=== PATIENT | female | born 1950 | race Caucasian/White ===

== ENCOUNTER 2019-09-21 14:26 | Emergency (ER) | payer MEDICARE, OTHER, SELFPAY ==
[2019-09-21] VITALS (7 sets, daily range): BP systolic 119–153; BP diastolic 55–89; PULSE 83–98; RESP 15–20; TEMP 36.8; O2SAT 91–99; BMI 30.7
--- NOTE | 2019-09-21 14:30 | ED_ITS ---
Entered by Mag Portillo, acting as scribe for HPI - SOB/Dyspnea General: Chief Complaint: Shortness of Breath/Dyspnea Stated Complaint: SHORTNESS OF BREATH NECK AND BACK PAIN FEVER Time Seen by Provider: 09/21/19 14:30 Source: EMS Mode of arrival: EMS History of Present Illness: HPI Narrative: 69 yo female presents with shortness of breath. pt states this started 12 days ago but has just worsened pt has had neck and back pain. pt states she has had a cough. pt states she was recently seen and admitted for the same symptoms. coughing makes this worse and nothing makes it better. pt denies any other symptoms at this time. elicited complaint: shortness of breath and cough Onset (ago): day(s) (12 days) Context: recent illness Timing: constant Severity: moderate Exacerbating factors: exertion, movement, coughing and deep breaths Relieving factors: nothing Review of Systems General: Reports: 10 or more systems reviewed and unremarkable except in HPI and below PFSH ED PFSH: Statuses (acute, chronic, etc) shown below reflect problem list status as previously entered and may not be historically accurate Social History Smoking and tobacco status: current every day smoker Course Vital Signs: Vital signs: Vital Signs Temperature 98.2 F 09/21/19 14:28 Pulse Rate 86 09/21/19 15:39 Respiratory Rate 20 H 09/21/19 15:14 Blood Pressure 125/75 09/21/19 14:28 Pulse Oximetry 94 09/21/19 15:39 MDM - SOB/Dyspnea Lab Data: Labs: Lab Results 09/21/19 09/21/19 09/21/19 Range/Units 14:55 15:13 15:13 WBC 6.7 (4.0-10.0) 10^3/ uL RBC 4.32 (4.1-5.3) 10^6/u L Hgb 11.5 (11.5-15.3) g/dL Hct 38.6 (37.0-47.0) % MCV 89.4 (81-99) fL MCH 26.6 L (28.0-34.0) pg MCHC 29.8 L (30.0-36.0) g/dL RDW 15.1 (12.1-15.1) % Plt Count 146 (130-400) 10^3/c mm MPV 11.7 H (7.4-10.4) fL Neut % (Auto) 72.8 % Lymph % (Auto) 15.8 % [place] % (Auto) 10.2 % Eos % (Auto) 0.2 % Baso % (Auto) 0.5 % Neut # (Auto) 4.9 (1.8-7.7) 10^3/u L Lymph # (Auto) 1.1 (0.8-4.8) 10^3/u L [place] # (Auto) 0.7 (0.2-0.9) 10^3/u L Eos # (Auto) 0.0 (0.0-0.8) 10^3/u L Baso # (Auto) 0.0 (0.0-0.1) 10^3/u L Nucleated RBC % (a uto) 0 % Nucleated RBCs # 0.0 /100WBC Specimen Type Arterial Sample Site Brachial, left ABG pH 7.34 L (7.35-7.45) ABG pCO2 61.8 H* (35-45) mmHg ABG pO2 57.5 L (80.0-100.0) mmH g ABG HCO3 33.6 H (22-26) mmol/L ABG Base Excess 6.1 H (-2.0-2.0) mmol/ L Patel Test N/a Hematocrit 38.4 (37-47) % Hgb O2 Saturation 86.0 L (95-100) % Carboxyhemoglobin 1.3 (0.4-20.1) %THgb Methemoglobin 0.7 (0.4-1.5) % Total Hemoglobin 12.5 (12-16) g/dL O2 Liters/Min 4.0 % FiO2 36.0 % Twine Reeling Machine Operator ID gd Sodium 137 (136-145) mmol/L Potassium 3.7 (3.5-5.1) mmol/L Chloride 94 L (98-107) mmol/L Carbon Dioxide 34 H (22-29) mmol/L Anion Gap 12.7 (5-19) BUN 17 (8-23) mg/dL Creatinine 0.8 (0.5-0.9) mg/dL GFR Calculation 71.5 L (90-130) mL/min Glucose 147 H (74-106) mg/dL Calcium 9.8 (8.8-10.2) mg/Dl Total Bilirubin 0.6 (0.15-1.2) mg/dL AST 7 (0-32) U/L ALT < 5 (0-33) U/L Alkaline Phosphata se 121 H (35-105) IU/L NT-Pro-B Natriuret Pep 3450 H (0-125) pg/mL Total Protein 6.8 (6.6-8.7) g/dL Albumin 3.6 (3.5-5.2) g/dL Globulin 3.2 (1.3-4.6) g/dL Influenza Type A A g (Negative) POC Influenza B Ag (Negative) 09/21/19 Range/Units 15:54 WBC (4.0-10.0) 10^3/ uL RBC (4.1-5.3) 10^6/u L Hgb (11.5-15.3) g/dL Hct (37.0-47.0) % MCV (81-99) fL MCH (28.0-34.0) pg MCHC (30.0-36.0) g/dL RDW (12.1-15.1) % Plt Count (130-400) 10^3/c mm MPV (7.4-10.4) fL Neut % (Auto) % Lymph % (Auto) % [place] % (Auto) % Eos % (Auto) % Baso % (Auto) % Neut # (Auto) (1.8-7.7) 10^3/u L Lymph # (Auto) (0.8-4.8) 10^3/u L [place] # (Auto) (0.2-0.9) 10^3/u L Eos # (Auto) (0.0-0.8) 10^3/u L Baso # (Auto) (0.0-0.1) 10^3/u L Nucleated RBC % (a uto) % Nucleated RBCs # /100WBC Specimen Type Sample Site ABG pH (7.35-7.45) ABG pCO2 (35-45) mmHg ABG pO2 (80.0-100.0) mmH g ABG HCO3 (22-26) mmol/L ABG Base Excess (-2.0-2.0) mmol/ L Patel Test Hematocrit (37-47) % Hgb O2 Saturation (95-100) % Carboxyhemoglobin (0.4-20.1) %THgb Methemoglobin (0.4-1.5) % Total Hemoglobin (12-16) g/dL O2 Liters/Min % FiO2 % Twine Reeling Machine Operator ID Sodium (136-145) mmol/L Potassium (3.5-5.1) mmol/L Chloride (98-107) mmol/L Carbon Dioxide (22-29) mmol/L Anion Gap (5-19) BUN (8-23) mg/dL Creatinine (0.5-0.9) mg/dL GFR Calculation (90-130) mL/min Glucose (74-106) mg/dL Calcium (8.8-10.2) mg/Dl Total Bilirubin (0.15-1.2) mg/dL AST (0-32) U/L ALT (0-33) U/L Alkaline Phosphata se (35-105) IU/L NT-Pro-B Natriuret Pep (0-125) pg/mL Total Protein (6.6-8.7) g/dL Albumin (3.5-5.2) g/dL Globulin (1.3-4.6) g/dL Influenza Type A A g Negative (Negative) POC Influenza B Ag Negative (Negative) Discharge Plan Discharge Patient Disposition: Home, Self-Care Clinical Impression: Acute exacerbation of chronic obstructive airways disease, Acute dyspnea, Hypoxia, Hypercarbia Community acquired pneumonia Qualifiers: Laterality: left Lung location: lower lobe of lung Qualified Code(s): J18.9 - Pneumonia, unspecified organism Condition: Stable Discharge Orders: Transfer Out of Facility (Order); Ordered 09/21/19 Ordered By: Aquilino Bustamante Referrals: Vivien Butler, CLOTH WORKER-C [Primary Care Provider] - Coding Level of Care Code ED Tactical Intelligence Officer for g Fwd The documentation recorded by the Bandar gómez Bridget Annette, accurately reflects the service I personally performed and the decisions made by Dianna prieto Donald P, DO Sep 21, 2019 14:26
--- NOTE | 2019-09-21 14:38 | XR_ITS ---
WS: [id number] PORTABLE CHEST HISTORY: dyspnea / hypoxia COMPARISON: 04/19/2019 Moderate pulmonary hyperexpansion. Increasing consolidation in the LEFT lower lung abuts the LEFT hea rt. No pleural effusion or pneumothorax. Cardiac size: Moderately enlarged cardiac silhouette. Mediastinum/Aorta: Mild atherosclerosis aorta. No osseous abnormality seen. XR/XR chest 1V portable [id number] IMPRESSION: 1. Developing LEFT lower lobe or lingular pneumonia. 2. Moderate cardiomegaly.
[2019-09-21 15:08] LABS: ABG PCO2 61.8 mmHg (35-45); ABG PH Result 7.34 (7.35-7.45); Arterial Blood Gas Hematocrit 38.4 % (37-47); Base Excess ABG 6.1 mmol/L (-2.0-2.0); Blood Gas Sample Site Brachial, left; Blood Gas Sample Type Arterial; Carboxyhemoglobin 1.3 %THgb (0.4-20.1); HCO3 ABG 33.6 mmol/L (22-26); Methemoglobin 0.7 % (0.4-1.5); PO2 ABG 57.5 mmHg (80.0-100.0); Total Hemoglobin 12.5 g/dL (12-16)
[2019-09-21] MEDS: ipratropium-albuterol 3 mL Neb INHALATION (15:11)
[2019-09-21] MEDS: sodium chloride 0.9% 500 ML 999 ML IV (15:17)
[2019-09-21 15:29] LABS: Basophils % 0.5 %; Eosinophils % 0.2 %; Hematocrit 38.6 % (37.0-47.0); Hemoglobin 11.5 g/dL (11.5-15.3); Lymphocytes # 1.1 10^3/uL (0.8-4.8); Lymphocytes % 15.8 %; Mean Corpuscular HGB Conc 29.8 g/dL (30.0-36.0); Mean Corpuscular Hemoglobin 26.6 pg (28.0-34.0); Mean Corpuscular Volume 89.4 fL (81-99); Mean Platelet Volume 11.7 fL (7.4-10.4); Monocytes # 0.7 10^3/uL (0.2-0.9); Monocytes % 10.2 %; Neutrophils # 4.9 10^3/uL (1.8-7.7); Neutrophils % 72.8 %; Nucleated Red Blood Cells % 0 %; Platelet Count 146 10^3/cmm (130-400); Red Blood Count 4.32 10^6/uL (4.1-5.3); Red Cell Distribution Width 15.1 % (12.1-15.1); White Blood Count 6.7 10^3/uL (4.0-10.0)
[2019-09-21] MEDS: LORazepam 2 mg/mL INJ 1 mL 0.5 MG IVP (15:37)
[2019-09-21] MEDS: cefTRIAXone 1,000 MG in sodium chloride 0.9% (plus) 50 ML 100 MG IV (15:38)
--- NOTE | 2019-09-21 15:40 | PC.RESP ---
BIPAP# 7. APNEA ALARM ON.
[2019-09-21 15:46] LABS: Alanine Aminotransferase < 5 U/L (0-33); Albumin Level 3.6 g/dL (3.5-5.2); Alkaline Phosphatase 121 IU/L (35-105); Anion Gap 12.7 (5-19); Aspartate Amino Transferase 7 U/L (0-32); Blood Urea Nitrogen 17 mg/dL (8-23); Calcium 9.8 mg/Dl (8.8-10.2); Carbon Dioxide 34 mmol/L (22-29); Chloride 94 mmol/L (98-107); Globulin 3.2 g/dL (1.3-4.6); Glomerular Filtration Rate 71.5 mL/min (90-130); Glucose 147 mg/dL (74-106); NT Pro B Type Natriuretic Pept 3450 pg/mL (0-125); Potassium 3.7 mmol/L (3.5-5.1); Sodium 137 mmol/L (136-145); Total Bilirubin 0.6 mg/dL (0.15-1.2); Total Protein 6.8 g/dL (6.6-8.7)
--- NOTE | 2019-09-21 15:49 | PC.NURSE ---
Neck: Chronic pain that is now worse. Patient reports she hurts all over.
--- NOTE | 2019-09-21 15:56 | PC.NURSE ---
Patient started by BI-PAP. See RT documentation
[2019-09-21 16:35] LABS: Influenza A by IFA Negative (Negative); Influenza B by IFA Negative (Negative)
[2019-09-22 09:42] LABS: Oxygen Device NC
== END 2019-09-21 20:10 | disposition home or self-care (01) ==
PROVIDERS: Emergency Provider Family Medicine; Family Provider Nurse Practitioner Family; PCP Nurse Practitioner Family
DX: J44.0 Chronic obstructive pulmonary disease with (acute) lower respiratory infection (principal); J44.1 Chronic obstructive pulmonary disease with (acute) exacerbation; J18.8 Other pneumonia, unspecified organism; R09.02 Hypoxemia; R06.89 Other abnormalities of breathing; F17.210 Nicotine dependence, cigarettes, uncomplicated; I70.0 Atherosclerosis of aorta
CPT/HCPCS: 36415; 36600; 71045; 80053; 82805; 83880; 85025; 87040; 87804; 96360; 96365; 96374; 96375; 99281; J0696; J2060; J7040

== ENCOUNTER → 2019-11-26 12:41 | Outpatient (BNVA) | payer MEDICARE, OTHER, SELFPAY | PROVIDERS: Family Provider Nurse Practitioner Family; PCP Nurse Practitioner Family; Visit Provider Anesthesiology | DX: M50.020 Cervical disc disorder with myelopathy, mid-cervical region, unspecified level (principal); M47.812 Spondylosis without myelopathy or radiculopathy, cervical region; M54.5 Low back pain; M96.1 Postlaminectomy syndrome, not elsewhere classified; M25.551 Pain in right hip; M25.552 Pain in left hip; F17.210 Nicotine dependence, cigarettes, uncomplicated; Z79.891 Long term (current) use of opiate analgesic; Z71.6 Tobacco abuse counseling | CPT/HCPCS: 99214 ==

== ENCOUNTER 2020-03-05 12:47 | Emergency (ER) | payer MEDICARE, OTHER, SELFPAY ==
[2020-03-05 12:59] VITALS: BP 158/69; PULSE 77; RESP 20; TEMP 36.3; O2SAT 91; BMI 28.9
[2020-03-05 13:15] VITALS: O2SAT 95
--- NOTE | 2020-03-05 13:24 | ECG_ITS ---
[facility] ED Test Date: 2020-03-05 Pat Name: Li Power Department: Room: Gender: Female Instructor Nurse: : 1950 Requested By: Ike Pruett I Order Number: [id number] Melissa MD: Cat Lowery M.D. Measurements Intervals Zenia Rate: 63 P: 37 WI: 140 QRS: -46 QRSD: 141 T: 85 QT: 433 QTc: 445 Interpretive Statements SINUS RHYTHM MARKED LEFT AXIS DEVIATION [QRS AXIS < -30] LEFT BUNDLE BRANCH BLOCK [120+ ms QRS DURATION, 80+ ms Q/S IN V1/V2, 85+ ms R IN I/aVL/V5/V6] Compared to ECG 04/20/2019 05:02:46 Left-axis deviation now present Sinus bradycardia no longer present Electronically Signed On 03-05-2020 13:34:53 CDT by Cat Lowery M.D. [id number]
--- NOTE | 2020-03-05 13:24 | XRR_ITS ---
PROCEDURE INFORMATION: Exam: XR Chest, 2 Views Exam date and time: 03/05/2020 1:24 PM Age: 69 years old Clinical indication: Dyspnea; Additional info: SOB TECHNIQUE: Imaging protocol: XR of the chest Views: 2 views. COMPARISON: No relevant prior studies available. FINDINGS: Lungs: Unremarkable. No consolidation. Pleural space: Unremarkable. No pleural effusion. No pneumothorax. Heart/Mediastinum: Unremarkable. No cardiomegaly. Bones/joints: Unremarkable. XR/XR chest 2V* [id number] IMPRESSION: No acute findings.
--- NOTE | 2020-03-05 13:38 | W.ED.SOB ---
HPI - SOB/Dyspnea General: Chief Complaint: Shortness of Breath/Dyspnea Stated Complaint: SOB, nausea Time Seen by Provider: 03/05/20 12:56 Source: patient Mode of arrival: ambulatory Limitations: no limitations History of Present Illness: HPI Narrative: 69-year-old female patient who presents to the emergency department with complaints of shortness of breath, nausea and chest pain. Symptoms started yesterday and have gradually worsened. She has a prior history of an [place] several years ago. She also has a history of COPD and still smokes half a pack of cigarettes a day. She uses oxygen at 2 L/min at night only. She used her Xopenex both with minimal improvement today. She has mild cough. MD elicited complaint: shortness of breath and chest pain Pertinent past history: COPD Onset (ago): day(s) (1) Timing: constant and progressively worsening Severity: moderate Exacerbating factors: nothing Relieving factors: nothing Associated symptoms: Reports abdominal pain, chest pain, cough and nausea; Deny fever(s), polydipsia or polyuria Treatment prior to arrival: oxygen and bronchodilator Review of Systems General: Reports: 10 or more systems reviewed and unremarkable except in HPI and below Const: Denies: fever(s) Eyes: Denies: change in vision or blurry vision ENMT: Denies: throat pain, enlarged tonsils, odynophagia, hoarseness, mouth pain or swelling of lips/tongue Card: Reports: chest pain Resp: Denies: dyspnea, productive cough or non-productive cough GI: Reports: abdominal pain and nausea : Denies: flank pain, difficulty voiding, dysuria, urinary frequency, urinary urgency or urinary hesitancy Musc: Denies: neck pain, back pain or extremity swelling Skin/Breast: Denies: rash, pruritus or erythema Neuro: Denies: headache(s), numbness in extremities or weakness in extremities Endo: Denies: polyuria, polydipsia or tired all the time PFSH ED PFSH: Medical History Arthralgia of cervical spine Back Pain Cervical disc disorder with myelopathy, mid-cervical region, unspecified level Cervical spondylosis without myelopathy COPD (chronic obstructive pulmonary disease) Encounter for long-term opiate analgesic use Lumbar postlaminectomy syndrome Myocardial infarct Smoker Social History (Reviewed 03/05/20 @ 13:42 by Ike Pruett MD, [facility]) Smoking and tobacco status: current every day smoker cigarettes Packs smoked per day: 0.5 Alcohol intake: never Physical Exam Const: COMMON NORMALS: no acute distress, average body habitus, patient oriented x3, no limitations, healthy appearing, alert and well nourished HENMT: COMMON NORMALS: normocephalic, atraumatic and moist oral mucous membranes HEAD & SCALP: normocephalic and atraumatic Neck/C-Spine: COMMON NORMALS: no meningeal signs and no JVD Resp: COMMON NORMALS: normal respiratory effort, No retractions, No use of accessory muscles and percussion normal AUSCULTATION: wheezes expiratory wheezes and throughout PERCUSSION: percussion normal Cardio: COMMON NORMALS: no JVD, regular rate, regular rhythm, S1 normal heart sound present, S2 normal heart sound present, No gallops present (Cardio), No clicks present (Cardio), No murmurs present (Cardio), No rub (Cardio) and Peripheral pulses 2+ throughout RATE: regular rate RHYTHM: regular rhythm HEART SOUNDS: S1 normal heart sound present and S2 normal heart sound present PERIPHERAL PULSES: Peripheral pulses 2+ throughout GI: COMMON NORMALS: Normal to inspection, nondistended, normoactive bowel sounds present, Soft to palpation, non-tender, No hepatosplenomegaly present, no masses and no bruits PALPATION: Yes Soft to palpation and Yes No hepatosplenomegaly present : COMMON NORMALS: Yes no CVA tenderness BLADDER/KIDNEY EXAM: Yes no CVA tenderness Back/Pelvis: COMMON NORMALS: no CVA tenderness Extremity: COMMON NORMALS: normal to inspection, full ROM, capillary refill normal, no calf tenderness and no pedal edema Neuro: COMMON NORMALS: patient oriented x3 SENSORIUM/ORIENTATION: Yes alert MENINGEAL SIGNS: Yes no meningeal signs Skin: COMMON NORMALS: no rashes or lesions noted, no wounds, turgor normal, no jaundice, no petechiae and no mottling GENERAL SKIN EXAM: no rashes or lesions noted and turgor normal Course Reevaluation(s): Reevaluation #1: Discussed her labs and imaging findings with her. Negative for acute findings. Baseline troponin elevated, but 2 hour delta is flat. She feels better following the breathing treatment but she refuses steroids as she says it gives her tremors. Will treat her as a case of COPD exacerbation. She has improved air movement following the breathing treatment. Will discharge her home on oral azithromycin and she is to f/u with her PCP. She is to use xopenex every 4 hours for the next 48 hours, then PRN thereafter. Time: 16:54 Vital Signs: Vital signs: Vital Signs Temperature 97.4 F L 03/05/20 12:59 Pulse Rate 82 03/05/20 17:15 Respiratory Rate 20 H 03/05/20 14:50 Blood Pressure 185/87 03/05/20 17:15 Pulse Oximetry 93 03/05/20 17:15 MDM - SOB/Dyspnea MDM Narrative: Medical decision making narrative: Patient with clinical features of COPD exacerbation. She improved following the breathing treatment, however she says she is very allergic to steroids so we avoided steroids in her. She is discharged home on azithromycin and she is to continue her beta agonist breathing treatments. Lab Data: Labs: Lab Results 03/05/20 03/05/20 03/05/20 Range/Units 13:48 13:48 13:48 WBC 6.0 (4.0-10.0) 10^3/ uL RBC 4.53 (4.1-5.3) 10^6/u L Hgb 12.5 (11.5-15.3) g/dL Hct 42.6 (37.0-47.0) % MCV 94.0 (81-99) fL MCH 27.6 L (28.0-34.0) pg MCHC 29.3 L (30.0-36.0) g/dL RDW 15.5 H (12.1-15.1) % Plt Count 123 L (130-400) 10^3/c mm MPV 11.7 H (7.4-10.4) fL Neut % (Auto) 72.6 % Lymph % (Auto) 21.0 % [place] % (Auto) 4.7 % Eos % (Auto) 0.7 % Baso % (Auto) 0.8 % Neut # (Auto) 4.3 (1.8-7.7) 10^3/u L Lymph # (Auto) 1.3 (0.8-4.8) 10^3/u L [place] # (Auto) 0.3 (0.2-0.9) 10^3/u L Eos # (Auto) 0.0 (0.0-0.8) 10^3/u L Baso # (Auto) 0.1 (0.0-0.1) 10^3/u L Nucleated RBC % (a uto) 0 % Nucleated RBCs # 0.0 /100WBC D-Dimer 0.73 H (0-0.59) ug/mIFE U Sodium 142 (136-145) mmol/L Potassium 4.3 (3.5-5.1) mmol/L Chloride 101 (98-107) mmol/L Carbon Dioxide 27 (22-29) mmol/L Anion Gap 18.3 (5-19) BUN 13 (8-23) mg/dL Creatinine 0.8 (0.5-0.9) mg/dL GFR Calculation 71.5 L (90-130) mL/min Glucose 101 (65-115) mg/dL Calculated Osmolal ity 290 (285-295) mOsm/k g Lactic Acid (0.5-2.2) mmol/L Calcium 9.6 (8.5-10.5) mg/dL Total Bilirubin 0.3 (0.15-1.2) mg/dL AST 12 (0-32) U/L ALT 8 (0-33) U/L Alkaline Phosphata se 104 (35-105) IU/L Troponin T Baselin e (0-10) ng/L Troponin T 120 Min henrietta (0-10) ng/L Delta Troponin T (0-10) ABS# NT-Pro-B Natriuret Pep 3865 H (0-125) pg/mL Total Protein 6.0 L (6.6-8.7) g/dL Albumin 4.3 (3.5-5.2) g/dL Globulin 1.7 (1.3-4.6) g/dL Lipase 15 (13-60) U/L 03/05/20 03/05/20 03/05/20 Range/Units 13:48 13:48 15:58 WBC (4.0-10.0) 10^3/ uL RBC (4.1-5.3) 10^6/u L Hgb (11.5-15.3) g/dL Hct (37.0-47.0) % MCV (81-99) fL MCH (28.0-34.0) pg MCHC (30.0-36.0) g/dL RDW (12.1-15.1) % Plt Count (130-400) 10^3/c mm MPV (7.4-10.4) fL Neut % (Auto) % Lymph % (Auto) % [place] % (Auto) % Eos % (Auto) % Baso % (Auto) % Neut # (Auto) (1.8-7.7) 10^3/u L Lymph # (Auto) (0.8-4.8) 10^3/u L [place] # (Auto) (0.2-0.9) 10^3/u L Eos # (Auto) (0.0-0.8) 10^3/u L Baso # (Auto) (0.0-0.1) 10^3/u L Nucleated RBC % (a uto) % Nucleated RBCs # /100WBC D-Dimer (0-0.59) ug/mIFE U Sodium (136-145) mmol/L Potassium (3.5-5.1) mmol/L Chloride (98-107) mmol/L Carbon Dioxide (22-29) mmol/L Anion Gap (5-19) BUN (8-23) mg/dL Creatinine (0.5-0.9) mg/dL GFR Calculation (90-130) mL/min Glucose (65-115) mg/dL Calculated Osmolal ity (285-295) mOsm/k g Lactic Acid 0.6 (0.5-2.2) mmol/L Calcium (8.5-10.5) mg/dL Total Bilirubin (0.15-1.2) mg/dL AST (0-32) U/L ALT (0-33) U/L Alkaline Phosphata se (35-105) IU/L Troponin T Baselin e 34 H (0-10) ng/L Troponin T 120 Min henrietta 31.66 H (0-10) ng/L Delta Troponin T -2.34 L (0-10) ABS# NT-Pro-B Natriuret Pep (0-125) pg/mL Total Protein (6.6-8.7) g/dL Albumin (3.5-5.2) g/dL Globulin (1.3-4.6) g/dL Lipase (13-60) U/L Imaging Data^: CXR: Radiologist's impression: [place] [address] XRay Report Signed Patient: Robinson Power #: [id number] : 2Acct#:[id number] Age/Sex: 69 / FADM Date: 03/05/20 Loc: ERRoom/Bed: Attending Dr: Ordering Provider/Ordering MD: Ike Pruett MD, [facility] Date of Service: 03/05/20 Procedure(s): XR chest 2V* [id number] Accession Number(s): [id number] Report Number: [id number] PROCEDURE INFORMATION: Exam: XR Chest, 2 Views Exam date and time: 03/05/2020 1:24 PM Age: 69 years old Clinical indication: Dyspnea; Additional info: SOB TECHNIQUE: Imaging protocol: XR of the chest Views: 2 views. COMPARISON: No relevant prior studies available. FINDINGS: Lungs: Unremarkable. No consolidation. Pleural space: Unremarkable. No pleural effusion. No pneumothorax. Heart/Mediastinum: Unremarkable. No cardiomegaly. Bones/joints: Unremarkable. XR/XR chest 2V* [id number] IMPRESSION: No acute findings. Dictated By:Crow Rodriguez Signed By:Анна Rodriguez Date/Time:03/05/20 1351 DD/ 1349 CTA Chest: Radiologist's impression: [address] [address] [address] Scan Report Signed Patient: Robinson Power #: [id number] : 1950cct#:[id number] Age/Sex: 69 / FADM Date: 03/05/20 Loc: ERRoo/Bed: Attending Dr: Ordering Provider/Ordering MD: Ike Pruett MD, [facility] Date of Service: 03/05/20 Procedure(s): CT angio chest PE protcl [id number] Accession Number(s): [id number] Report Number: [id number] PROCEDURE INFORMATION: Exam: CT Angiography Chest With Contrast Exam date and time: 03/05/2020 2:55 PM Age: 69 years old Clinical indication: Dyspnea and other: High d dimer; Prior surgery; Surgery date: 6+ months; Surgery type: Right nephrectomy; Additional info: SOB TECHNIQUE: Imaging protocol: Computed tomographic angiography of the chest with intravenous contrast. 3D rendering: MIP and/or 3D reconstructed images were created by the technologist. Radiation optimization: All CT scans at this facility use at least one of these dose optimization techniques: automated exposure control; mA and/or kV adjustment per patient size (includes targeted exams where dose is matched to clinical indication); or iterative reconstruction. Contrast material: VISI; Contrast volume: 95 ml; Contrast route: INTRAVENOUS (IV); COMPARISON: CR (CHEST, ) 03/05/2020 1:39 PM RADIATION DOSE METRICS: Total DLP (mGy-cm): 651.3 FINDINGS: Pulmonary arteries: there is no pulmonary embolus. Aorta: Unremarkable. No aortic aneurysm. No aortic dissection. Lungs: There are moderate emphysematous changes. There is subpleural atelectasis of the dependent portions of the lungs. There is no lobar consolidation. Pleural space: Unremarkable. No pneumothorax. No pleural effusion. Heart: The heart is enlarged. Mediastinal space: A small hiatal hernia is present. Lymph nodes: Unremarkable. No enlarged lymph nodes. Kidneys and ureters: There is an appropriate appearance of the visualized solitary left kidney. Bones/joints: Old right rib fracture deformities are noted. No acute fracture. There are moderate degenerative changes in the spine. Soft tissues: Unremarkable. CT/CT angio chest PE protcl [id number] IMPRESSION: 1. There is no pulmonary embolus. 2. Emphysematous changes. The lungs are clear. Radiation Dose CTDIVOL = (mGy): DLP = 651.3 (mGy-cm) Dictated By:Linda Cuenca Signed By:Judy Cuenca Date/Time:03/05/20 1642 DD/ 1640 EKG Data^: EKG 1: Attestation: I personally reviewed and interpreted this EKG as follows: EKG Interpretation Date: 03/05/20 EKG interpretation time: 13:32 Prior EKG tracings: not available for review Interpretation: Normal sinus rhythm. Heart rate 63 beats per minutes. Left axis deviation. Left bundle branch block. Discharge Plan Discharge Patient Disposition: Home, Self-Care Clinical Impression: COPD exacerbation Condition: Stable Prescriptions: New azithromycin 250 mg tablet See Rx Instructions .ROUTE .COMPLEX Qty: 6 RF: 0 Continued methocarbamol 500 mg tablet 500 mg PO TID PRN (Reason: spasms) 90 Days Qty: 270 RF: 0 oxycodone 15 mg tablet 15 mg PO QID PRN (Reason: pain) 30 Days Qty: 120 RF: 0 pregabalin 150 mg capsule 150 mg PO TID 90 Days Qty: 270 RF: 0 Creon 36,000-114,000- 180,000 unit capsule,delayed release(DR/EC) See Rx Instructions PO DAILY RF: 0 atorvastatin 40 mg tablet 40 mg PO DAILY RF: 0 duloxetine [Cymbalta] 30 mg capsule,delayed release(DR/EC) 30 mg PO DAILY RF: 0 Daliresp 500 mcg tablet 500 mcg PO DAILY RF: 0 fluticasone propionate 50 mcg/actuation spray,suspension 1 spray INTRANASAL DAILY RF: 0 isosorbide mononitrate 30 mg tablet extended release 24 hr 30 mg PO DAILY RF: 0 levothyroxine 137 mcg capsule 137 mcg PO DAILY RF: 0 nitroglycerin 0.4 mg tablet, sublingual 0.4 mg SUBLINGUAL Q5M PRN (Reason: CHEST PAINS) RF: 0 pantoprazole 40 mg tablet,delayed release (DR/EC) 40 mg PO DAILY RF: 0 Symbicort 160-4.5 mcg/actuation HFA aerosol inhaler 2 puff INHALATION BID RF: 0 metoprolol succinate 25 mg tablet extended release 24 hr 25 mg PO DAILY RF: 0 ergocalciferol (vitamin D2) 1,250 mcg (50,000 unit) capsule 1,250 mcg PO DAILY RF: 0 levalbuterol HCl 1.25 mg/3 mL solution for nebulization 1.25 mg INHALATION DAILY RF: 0 Spiriva with HandiHaler 18 mcg Capsule, W/Inhalation Device 1 cap INHALATION DAILY RF: 0 carbidopa-levodopa 25-100 mg Tablet,Disintegrating 1 tab PO DAILY RF: 0 ondansetron HCl [Zofran] 8 mg Tablet 8 mg PO Q8H PRN (Reason: Nausea) RF: 0 aspirin 81 mg Tablet,Chewable 81 mg PO DAILY RF: 0 Discharge Orders: Discharge Order (Routine); Ordered 03/05/20 Ordered By: Ike Pruett Referrals: Vivien Butler FNP-C [Primary Care Provider] - 1-3 days Patient Instructions: Chronic Obstructive Pulmonary Disease (ED) Activity Restrictions/Additional Instructions: Return for any new or worsening symptoms. Follow-up with your primary care provider within 3 days. Take the antibiotic as prescribed. Use your Xopenex every 4 hours for the next 2 days while awake then as needed thereafter. Discharge Date/Time: 03/05/20 17:15 Coding Level of Care Code ED Cheese Cook for Chg Fwd Exam Comprehensive
[2020-03-05] MEDS: levalbuterol 1.25 mg/3 mL Neb INHALATION (13:44)
[2020-03-05 13:45] VITALS: PULSE 61; RESP 20; O2SAT 95
[2020-03-05 13:57] LABS: Basophils # 0.1 10^3/uL (0.0-0.1); Basophils % 0.8 %; Eosinophils % 0.7 %; Hematocrit 42.6 % (37.0-47.0); Hemoglobin 12.5 g/dL (11.5-15.3); Lymphocytes # 1.3 10^3/uL (0.8-4.8); Mean Corpuscular HGB Conc 29.3 g/dL (30.0-36.0); Mean Corpuscular Hemoglobin 27.6 pg (28.0-34.0); Mean Platelet Volume 11.7 fL (7.4-10.4); Monocytes # 0.3 10^3/uL (0.2-0.9); Monocytes % 4.7 %; Neutrophils # 4.3 10^3/uL (1.8-7.7); Neutrophils % 72.6 %; Nucleated Red Blood Cells % 0 %; Platelet Count 123 10^3/cmm (130-400); Red Blood Count 4.53 10^6/uL (4.1-5.3); Red Cell Distribution Width 15.5 % (12.1-15.1)
[2020-03-05 14:26] LABS: D Dimer 0.73 ug/mIFEU (0-0.59); Lactic Sepsis W/Reflex 0.6 mmol/L (0.5-2.2)
[2020-03-05 14:29] LABS: Troponin(5th) Baseline 34 ng/L (0-10)
[2020-03-05 14:35] LABS: Alanine Aminotransferase 8 U/L (0-33); Albumin Level 4.3 g/dL (3.5-5.2); Alkaline Phosphatase 104 IU/L (35-105); Anion Gap 18.3 (5-19); Aspartate Amino Transferase 12 U/L (0-32); Blood Urea Nitrogen 13 mg/dL (8-23); Calcium 9.6 mg/dL (8.5-10.5); Carbon Dioxide 27 mmol/L (22-29); Chloride 101 mmol/L (98-107); Globulin 1.7 g/dL (1.3-4.6); Glomerular Filtration Rate 71.5 mL/min (90-130); Glucose 101 mg/dL (65-115); Lipase 15 U/L (13-60); NT Pro B Type Natriuretic Pept 3865 pg/mL (0-125); Osmolality Calculated 290 mOsm/kg (285-295); Potassium 4.3 mmol/L (3.5-5.1); Sodium 142 mmol/L (136-145); Total Bilirubin 0.3 mg/dL (0.15-1.2)
[2020-03-05] MEDS: ondansetron 2 mg/ML SDV 2 mL 4 MG IM (14:46)
[2020-03-05 14:50] VITALS: PULSE 82; RESP 20; O2SAT 92
--- NOTE | 2020-03-05 14:50 | CTR_ITS ---
PROCEDURE INFORMATION: Exam: CT Angiography Chest With Contrast Exam date and time: 03/05/2020 2:55 PM Age: 69 years old Clinical indication: Dyspnea and other: High d dimer; Prior surgery; Surgery date: 6+ months; Surgery type: Right nephrectomy; Additional info: SOB TECHNIQUE: Imaging protocol: Computed tomographic angiography of the chest with intravenous contrast. 3D rendering: MIP and/or 3D reconstructed images were created by the technologist. Radiation optimization: All CT scans at this facility use at least one of these dose optimization techniques: automated exposure control; mA and/or kV adjustment per patient size (includes targeted exams where dose is matched to clinical indication); or iterative reconstruction. Contrast material: VISI; Contrast volume: 95 ml; Contrast route: INTRAVENOUS (IV); COMPARISON: CR (CHEST, ) 03/05/2020 1:39 PM RADIATION DOSE METRICS: Total DLP (mGy-cm): 651.3 FINDINGS: Pulmonary arteries: there is no pulmonary embolus. Aorta: Unremarkable. No aortic aneurysm. No aortic dissection. Lungs: There are moderate emphysematous changes. There is subpleural atelectasis of the dependent portions of the lungs. There is no lobar consolidation. Pleural space: Unremarkable. No pneumothorax. No pleural effusion. Heart: The heart is enlarged. Mediastinal space: A small hiatal hernia is present. Lymph nodes: Unremarkable. No enlarged lymph nodes. Kidneys and ureters: There is an appropriate appearance of the visualized solitary left kidney. Bones/joints: Old right rib fracture deformities are noted. No acute fracture. There are moderate degenerative changes in the spine. Soft tissues: Unremarkable. CT/CT angio chest PE protcl [id number] IMPRESSION: 1. There is no pulmonary embolus. 2. Emphysematous changes. The lungs are clear. Radiation Dose CTDIVOL = (mGy): DLP = 651.3 (mGy-cm)
[2020-03-05 16:21] LABS: Troponin 5 2HR 31.66 ng/L (0-10)
[2020-03-05 16:22] LABS: Troponin 5 2HR Delta -2.34 ABS# (0-10)
[2020-03-05] MEDS: iodixanol 320 mg/mL 100mL Btl IV (16:35)
[2020-03-05 16:43] VITALS: BP 186/90; PULSE 83; O2SAT 93
[2020-03-05] MEDS: levoFLOXacin 500 mg Tablet PO (17:08)
[2020-03-05 17:15] VITALS: BP 185/87; PULSE 82; O2SAT 93
== END 2020-03-05 17:15 | disposition home or self-care (01) ==
PROVIDERS: Emergency Provider Family Medicine; PCP Nurse Practitioner Family
DX: J44.1 Chronic obstructive pulmonary disease with (acute) exacerbation (principal); Z79.82 Long term (current) use of aspirin; I25.2 Old myocardial infarction; F17.210 Nicotine dependence, cigarettes, uncomplicated
CPT/HCPCS: 12345; 36415; 71046; 71275; 80053; 83605; 83690; 83880; 84484; 85025; 85378; 93005; 94640; 96372; 99283; 99284; J2405; J7614; Q9967

== ENCOUNTER → 2020-03-15 14:37 | Outpatient (BNVA) | payer MEDICARE, OTHER, SELFPAY | PROVIDERS: PCP Nurse Practitioner Family; Visit Provider Nurse Practitioner | DX: M54.41 Lumbago with sciatica, right side (principal); M54.42 Lumbago with sciatica, left side; M54.9 Dorsalgia, unspecified; M50.020 Cervical disc disorder with myelopathy, mid-cervical region, unspecified level; M47.812 Spondylosis without myelopathy or radiculopathy, cervical region; M96.1 Postlaminectomy syndrome, not elsewhere classified; F17.210 Nicotine dependence, cigarettes, uncomplicated; Z79.891 Long term (current) use of opiate analgesic; Z71.6 Tobacco abuse counseling | CPT/HCPCS: 99214 ==

== ENCOUNTER 2020-04-06 22:39 | Inpatient (IN) | payer MEDICARE, OTHER, SELFPAY ==
[2020-04-06 22:39] VITALS: BP 161/70; PULSE 86; RESP 18; O2SAT 94
--- NOTE | 2020-04-06 22:44 | ECG_ITS ---
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 Measurements Intervals Pratt Rate: 90 P: 71 AR: 156 QRS: -70 QRSD: 146 T: 94 QT: 413 QTc: 507 Interpretive Statements SINUS RHYTHM WITH OCCASIONAL VENTRICULAR PREMATURE COMPLEXES WITH OCCASIONAL SUPRAVENTRICULAR PREMATURE COMPLEXES POSSIBLE LEFT ATRIAL ENLARGEMENT [-0.1mV P WAVE IN V1/V2] LEFT AXIS DEVIATION [QRS AXIS < -30] LEFT BUNDLE BRANCH BLOCK [120+ ms QRS DURATION, 80+ ms Q/S IN V1/V2, 85+ ms R IN I/aVL/V5/V6] Compared to ECG 03/05/2020 13:32:30 Ventricular premature complex(es) now present Electronically Signed On 04-07-2020 20:12:29 CDT by Kaci Matthews M.D. [email or web address]
--- NOTE | 2020-04-06 22:44 | XRR_ITS ---
PROCEDURE INFORMATION: Exam: XR Chest, 1 View Exam date and time: 04/06/2020 10:46 PM Age: 69 years old Clinical indication: Patient HX: Persistent dyspnea. HX of copd; Additional info: SOB TECHNIQUE: Imaging protocol: XR of the chest Views: 1 view. COMPARISON: CR (CHEST, ) 03/05/2020 1:39 PM FINDINGS: Lungs: Emphysematous change and interstitial prominence. Pleural space: No p significant leural effusion. Heart/Mediastinum: Cardiomegaly with prominent epicardial fat. Bones/joints: Osteopenia and degenerative change. Soft tissues: Multiple punctate radiopaque densities overlying the soft tissues of the left axilla and chest wall. XR/XR chest 1V portable [id number] IMPRESSION: COPD and interstitial prominence.
--- NOTE | 2020-04-06 22:45 | ED_ITS ---
HPI - SOB/Dyspnea General: Stated Complaint: DIFF BREATHING/ HX COPD Time Seen by Provider: 04/06/20 22:40 Source: patient and EMS Mode of arrival: EMS Limitations: no limitations History of Present Illness: HPI Narrative: 69-year-old female who is a history of COPD states she has had increasing shortness of breath over the last 3 to 4 days. Patient given breathing treatment and terbutaline in route. She is on 2 L of oxygen at baseline at home. She had a mild cough. She denies any fevers. Denies any chest pain. MD elicited complaint: shortness of breath Pertinent past history: COPD Onset (ago): day(s) Associated symptoms: Deny abdominal pain, chest pain, fever(s), nausea or vomiting Review of Systems Const: Denies: fever(s), chills, body aches or change in appetite Eyes: Denies: blurry vision or eye discomfort ENMT: Denies: throat pain or dental pain Card: Denies: chest pain Resp: Reports: dyspnea and wheezing GI: Denies: abdominal pain, nausea, vomiting or diarrhea : Denies: dysuria Musc: Denies: neck pain or back pain Skin/Breast: Denies: rash Neuro: Denies: headache(s) Psych: Denies: depression Mik/Lymph: Denies: easy bruising All/Imm: Denies: urticaria PFSH ED PFSH: Medical History Arthralgia of cervical spine Back Pain Cervical disc disorder with myelopathy, mid-cervical region, unspecified level Cervical spondylosis without myelopathy COPD (chronic obstructive pulmonary disease) Encounter for long-term opiate analgesic use Lumbar postlaminectomy syndrome Myocardial infarct Smoker Social History (Reviewed 03/05/20 @ 13:42 by Ike Pruett MD, [facility] [place]) Smoking and tobacco status: current every day smoker cigarettes Packs smoked per day: 0.5 Alcohol intake: never Physical Exam Const: COMMON NORMALS: no acute distress, patient oriented x3 and healthy appearing HENMT: COMMON NORMALS: normocephalic and atraumatic HEAD & SCALP: normocephalic and atraumatic Eye: COMMON NORMALS: Equal, round and reactive pupils present and EOMs intact bilaterally PUPIL: Yes Equal, round and reactive pupils present Neck/C-Spine: COMMON NORMALS: full ROM and supple Chest: COMMONS NORMALS: normal inspection of the chest and normal palpation of entire chest wall Resp: COMMON NORMALS: normal respiratory effort, No retractions and No use of accessory muscles AUSCULTATION: wheezes Cardio: COMMON NORMALS: regular rate, regular rhythm and No murmurs present (Cardio) RATE: regular rate RHYTHM: regular rhythm GI: COMMON NORMALS: Normal to inspection, nondistended, normoactive bowel sounds present, Soft to palpation, non-tender and no masses PALPATION: Yes Soft to palpation Extremity: COMMON NORMALS: normal to inspection and full ROM Neuro: COMMON NORMALS: patient oriented x3, moves all extremities and no focal motor deficits Psych: COMMON NORMALS: mental status grossly normal, Normal thought process present and cooperative THOUGHT PROCESS: Normal thought process present Skin: COMMON NORMALS: no rashes or lesions noted and no wounds GENERAL SKIN EXAM: no rashes or lesions noted MDM - SOB/Dyspnea MDM Narrative: Medical decision making narrative: Li presents here shortness of breath and does have an elevated BNP compared to her baseline. Patient started on breathing treatments and Lasix. Patient is stable here and has no signs of heart attack. I spoke to hospitalist who will admit. Lab Data: Labs: Lab Results 04/06/20 04/06/20 04/06/20 Range/Units 23:08 23:10 23:10 WBC 4.0 (4.0-10.0) 10^3/ uL RBC 4.35 (4.1-5.3) 10^6/u L Hgb 12.2 (11.5-15.3) g/dL Hct 40.6 (37.0-47.0) % MCV 93.3 (81-99) fL MCH 28.0 (28.0-34.0) pg MCHC 30.0 (30.0-36.0) g/dL RDW 16.6 H (12.1-15.1) % Plt Count 102 L (130-400) 10^3/c mm MPV 12.5 H (7.4-10.4) fL Neut % (Auto) 76.8 % Lymph % (Auto) 16.4 % [place] % (Auto) 6.0 % Eos % (Auto) 0.0 % Baso % (Auto) 0.5 % Neut # (Auto) 3.05 (1.8-7.7) 10^3/u L Lymph # (Auto) 0.7 L (0.8-4.8) 10^3/u L [place] # (Auto) 0.2 (0.2-0.9) 10^3/u L Eos # (Auto) 0.0 (0.0-0.8) 10^3/u L Baso # (Auto) 0.0 (0.0-0.1) 10^3/u L Nucleated RBC % (a uto) 0 % Nucleated RBCs # 0.0 /100WBC PT 13.20 (10.5-13.3) SECO NDS INR 0.97 (0.8-1.2) Specimen Type Arterial Sample Site Brachial, right ABG pH 7.42 (7.35-7.45) ABG pCO2 47.2 H (35-45) mmHg ABG pO2 58.5 L (80.0-100.0) mmH g ABG HCO3 30.5 H (22-26) mmol/L ABG Base Excess 5.0 H (-2.0-2.0) mmol/ L Patel Test N/a Hematocrit 38.2 (37-47) % Hgb O2 Saturation 88.8 L (95-100) % Carboxyhemoglobin 1.9 (0.4-20.1) %THgb Methemoglobin 0.4 (0.4-1.5) % Total Hemoglobin 12.5 (12-16) g/dL O2 Delivery Device Nc O2 Liters/Min 4.0 % Director Of Collections And Archives ID [email or web address] Sodium (136-145) mmol/L Potassium (3.5-5.1) mmol/L Chloride (98-107) mmol/L Carbon Dioxide (22-29) mmol/L Anion Gap (5-19) BUN (8-23) mg/dL Creatinine (0.5-0.9) mg/dL GFR Calculation (90-130) mL/min Glucose (65-115) mg/dL Calculated Osmolal ity (285-295) mOsm/k g Calcium (8.5-10.5) mg/dL Total Bilirubin (0.15-1.2) mg/dL AST (0-32) U/L ALT (0-33) U/L Alkaline Phosphata se (35-105) IU/L NT-Pro-B Natriuret Pep (0-125) pg/mL Total Protein (6.6-8.7) g/dL Albumin (3.5-5.2) g/dL Globulin (1.3-4.6) g/dL / Range/Units 23:10 WBC (4.0-10.0) 10^3/ uL RBC (4.1-5.3) 10^6/u L Hgb (11.5-15.3) g/dL Hct (37.0-47.0) % MCV (81-99) fL MCH (28.0-34.0) pg MCHC (30.0-36.0) g/dL RDW (12.1-15.1) % Plt Count (130-400) 10^3/c mm MPV (7.4-10.4) fL Neut % (Auto) % Lymph % (Auto) % [place] % (Auto) % Eos % (Auto) % Baso % (Auto) % Neut # (Auto) (1.8-7.7) 10^3/u L Lymph # (Auto) (0.8-4.8) 10^3/u L [place] # (Auto) (0.2-0.9) 10^3/u L Eos # (Auto) (0.0-0.8) 10^3/u L Baso # (Auto) (0.0-0.1) 10^3/u L Nucleated RBC % (a uto) % Nucleated RBCs # /100WBC PT (10.5-13.3) SECO NDS INR (0.8-1.2) Specimen Type Sample Site ABG pH (7.35-7.45) ABG pCO2 (35-45) mmHg ABG pO2 (80.0-100.0) mmH g ABG HCO3 (22-26) mmol/L ABG Base Excess (-2.0-2.0) mmol/ L Patel Test Hematocrit (37-47) % Hgb O2 Saturation (95-100) % Carboxyhemoglobin (0.4-20.1) %THgb Methemoglobin (0.4-1.5) % Total Hemoglobin (12-16) g/dL O2 Delivery Device O2 Liters/Min % Director Of Collections And Archives ID Sodium 145 (136-145) mmol/L Potassium 3.2 L (3.5-5.1) mmol/L Chloride 102 (98-107) mmol/L Carbon Dioxide 31 H (22-29) mmol/L Anion Gap 15.2 (5-19) BUN 17 (8-23) mg/dL Creatinine 0.7 (0.5-0.9) mg/dL GFR Calculation 83.5 L (90-130) mL/min Glucose 144 H (65-115) mg/dL Calculated Osmolal ity 299 H (285-295) mOsm/k g Calcium 9.6 (8.5-10.5) mg/dL Total Bilirubin 0.8 (0.15-1.2) mg/dL AST 36 H (0-32) U/L ALT 36 H (0-33) U/L Alkaline Phosphata se 95 (35-105) IU/L NT-Pro-B Natriuret Pep 9210 H (0-125) pg/mL Total Protein 6.2 L (6.6-8.7) g/dL Albumin 4.1 (3.5-5.2) g/dL Globulin 2.1 (1.3-4.6) g/dL Imaging Data^: CXR: Attestation: I personally reviewed and interpreted this imaging study as follows: My impression: no acute abnormality CT Head: Attestation: I personally reviewed and interpreted this imaging study as follows: Radiologist's impression: [address] [address] [address] Scan Report Signed Patient: Li Power Unit #: [id number] : 1950 Acct#:O [id number] Age/Sex: 69 / F ADM Date: 04/06/20 Loc: ER Room/Bed: Attending Dr: Ordering Provider/Ordering MD: Cory Fontana MD Date of Service: 04/06/20 Procedure(s): CT head wo con* [id number] Accession Number(s): [id number] Report Number: [id number] PROCEDURE INFORMATION: Exam: CT Head Without Contrast Exam date and time: 04/06/2020 10:56 PM Age: 69 years old Clinical indication: Malaise or fatigue; Patient HX: Lethargy and confusion TECHNIQUE: Imaging protocol: Computed tomography of the head without contrast. Radiation optimization: All CT scans at this facility use at least one of these dose optimization techniques: automated exposure control; mA and/or kV adjustment per patient size (includes targeted exams where dose is matched to clinical indication); or iterative reconstruction. COMPARISON: CT head wo con* [id number] 09/29/2018 2:23 PM RADIATION DOSE METRICS: Total DLP (mGy-cm): 738.17 FINDINGS: Brain: There is mild cortical atrophy. Low-density changes in the white matter are consistent with nonspecific small vessel chronic ischemic change. There is no intracranial mass, hemorrhage or edema. There is a small hypodensity in the left cerebellar hemisphere such as an image number 10 series 2 which is new compared with the previous study and may represent small lacunar infarct in the cerebellum of uncertain age. Correlation with clinical findings is suggested. Further evaluation with MRI may be helpful. Ventricles: Normal. No ventriculomegaly. Bones/joints: Unremarkable. No acute fracture. Sinuses: Visualized sinuses are unremarkable. No fluid levels. Mastoid air cells: Visualized mastoid air cells are well aerated. Soft tissues: Unremarkable. CT/CT head wo con* [id number] IMPRESSION: 1. Atrophy and mild chronic ischemic changes. 2. Question of small left cerebellar hemisphere infarct of uncertain age. Radiation Dose CTDIVOL = (mGy): DLP = 738.17 (mGy-cm) Discharge Plan Discharge Patient Disposition: Admitted As Inpatient Clinical Impression: COPD exacerbation, CHF exacerbation Condition: Stable Referrals: Vivien Butler FNP-C [Primary Care Provider] - Coding Level of Care Code ED Bingo Worker for Chg Fwd Exam Comprehensive
[2020-04-06 23:19] LABS: ABG PCO2 47.2 mmHg (35-45); ABG PH Result 7.42 (7.35-7.45); Arterial Blood Gas Hematocrit 38.2 % (37-47); Blood Gas Sample Site Brachial, right; Blood Gas Sample Type Arterial; Carboxyhemoglobin 1.9 %THgb (0.4-20.1); HCO3 ABG 30.5 mmol/L (22-26); HGB O2 Sat 88.8 % (95-100); Methemoglobin 0.4 % (0.4-1.5); Oxygen Device NC; PO2 ABG 58.5 mmHg (80.0-100.0); Total Hemoglobin 12.5 g/dL (12-16)
[2020-04-06 23:36] LABS: Basophils % 0.5 %; Hematocrit 40.6 % (37.0-47.0); Hemoglobin 12.2 g/dL (11.5-15.3); Lymphocytes # 0.7 10^3/uL (0.8-4.8); Lymphocytes % 16.4 %; Mean Corpuscular Volume 93.3 fL (81-99); Mean Platelet Volume 12.5 fL (7.4-10.4); Monocytes # 0.2 10^3/uL (0.2-0.9); Neutrophils # 3.05 10^3/uL (1.8-7.7); Neutrophils % 76.8 %; Nucleated Red Blood Cells % 0 %; Platelet Count 102 10^3/cmm (130-400); Red Blood Count 4.35 10^6/uL (4.1-5.3); Red Cell Distribution Width 16.6 % (12.1-15.1)
[2020-04-06 23:39] LABS: INR 0.97 (0.8-1.2)
[2020-04-06 23:54] LABS: Alanine Aminotransferase 36 U/L (0-33); Albumin Level 4.1 g/dL (3.5-5.2); Alkaline Phosphatase 95 IU/L (35-105); Anion Gap 15.2 (5-19); Aspartate Amino Transferase 36 U/L (0-32); Blood Urea Nitrogen 17 mg/dL (8-23); Calcium 9.6 mg/dL (8.5-10.5); Carbon Dioxide 31 mmol/L (22-29); Chloride 102 mmol/L (98-107); Globulin 2.1 g/dL (1.3-4.6); Glomerular Filtration Rate 83.5 mL/min (90-130); Glucose 144 mg/dL (65-115); NT Pro B Type Natriuretic Pept 9210 pg/mL (0-125); Osmolality Calculated 299 mOsm/kg (285-295); Potassium 3.2 mmol/L (3.5-5.1); Sodium 145 mmol/L (136-145); Total Bilirubin 0.8 mg/dL (0.15-1.2); Total Protein 6.2 g/dL (6.6-8.7)
[2020-04-07] VITALS (15 sets, daily range): BP systolic 143–180; BP diastolic 71–88; PULSE 78–90; RESP 16–25; TEMP 36.6–36.9; O2SAT 92–100
--- NOTE | 2020-04-07 00:17 | P.HP_ITS ---
Providers/Chief Complaint Primary Care Provider: Vivien Butler SUCCESSFACTORS CONSULTANT-C Chief Complaint: DIFF BREATHING/ HX COPD History of Present Illness Li Power is a 69 year old female who carries history of oxygen dependent COPD uses 2 L, diastolic congestive heart failure, hypertension, coronary disease stent placement in the right coronary artery [address] Jacques coming in today for chief complaint of worsening shortness of breath. Patient is stating that for last 1 months she has been experiencing shortness of breath which has worsened to the point that necessitated hospital visit. Today she was not able to carry her daily activities, and was feeling distressed even at rest, she has not noticed any fever, excessive sputum production, chills, vomiting, diarrhea, dysuria. She has not been exposed to COVID suspects. She does not get out of her home. Her daughter helps her out with the groceries and daily cooking. She is currently smoking half a pack a day. She is not sure why she is on carbidopa/levodopa, she is denying Parkinson's history. Of note, patient stated that on Friday she suffered falls twice, she went to bed on Friday and woke up on Friday. She denied taking excessive oxycodone or any opioids. She is not sure what happened. She did not notice any vision changes, motor deficit on awakening. She denied any seizure-like activity. Diagnostics in the ER revealed normal hemodynamics, thrombocytopenia, normal blood gas, chest x-ray shows interstitial infiltrate, high BNP, clinically does not look fluid overloaded, at the time of my evaluation she was saturating well on 4 L nasal cannula, she was afraid to go home because she lives alone, I have requested CTA chest, she was given 40 mg of IV Lasix in the ER. And route to the hospital she was given terbutaline by EMS which made her tremulous. EKG reveals left bundle branch block which is old with PVCs without ischemic or infarctive changes. Prolonged QTC 507 Review of Systems Const: Reports: chills, body aches, change in appetite and fatigue; Denies: fever(s) Eyes: Denies: change in vision ENMT: Denies: throat pain or swelling of lips/tongue Card: Reports: palpitations, syncope, dyspnea on exertion and orthopnea; Denies: chest pain or swelling of feet/ankles Resp: Reports: dyspnea and non-productive cough; Denies: productive cough, wheezing, pain on inspiration, change in phlegm color or chest congestion GI: Reports: nausea; Denies: abdominal pain, vomiting, diarrhea or constipation : Denies: flank pain or difficulty voiding Musc: Reports: neck pain; Denies: back pain Skin/Breast: Denies: rash Neuro: Denies: headache(s) Psych: Reports: depression Endo: Denies: polyuria Mik/Lymph: Denies: easy bruising All/Imm: Denies: urticaria Medications/Allergies Home Medications Medication Instructions Recorded Confirmed Last Taken Type aspirin 81 mg PO DAILY 09/21/19 03/15/20 03/05/20 History ondansetron HCl [Zofran] 8 mg PO Q8H PRN 09/21/19 03/15/20 Unknown History atorvastatin 40 mg tablet 40 mg PO DAILY 11/22/19 03/15/20 03/04/20 History budesonide-formoterol HFA 160 2 puff INHALATION BID 11/22/19 03/15/20 03/05/20 History mcg-4.5 mcg/actuation aerosol inhaler duloxetine 30 mg capsule,delayed 30 mg PO DAILY 11/22/19 03/15/20 03/05/20 History release fluticasone propionate 50 1 spray INTRANASAL DAILY 11/22/19 03/15/20 03/05/20 History mcg/actuation nasal spray,suspension isosorbide mononitrate 30 mg 30 mg PO DAILY 11/22/19 03/15/20 03/05/20 History tablet,extended release 24 hr levothyroxine 137 mcg capsule 137 mcg PO DAILY 11/22/19 03/15/20 03/05/20 History nitroglycerin 0.4 mg sublingual 0.4 mg SUBLINGUAL Q5M PRN 11/22/19 03/15/20 Unknown History tablet pantoprazole 40 mg tablet,delayed 40 mg PO DAILY 11/22/19 03/15/20 03/05/20 History release roflumilast 500 mcg tablet 500 mcg PO DAILY 11/22/19 03/15/20 03/05/20 History hppoed-orahysyi-aqtvuvk See Rx Instructions PO DAILY cap 11/26/19 03/15/20 03/05/20 History 36,000-114,000-180,000 unit capsule,delay rel metoprolol succinate 25 mg 25 mg PO DAILY tab 11/26/19 03/15/20 03/04/20 History tablet,extended release 24 hr methocarbamol 500 mg tablet 500 mg PO TID PRN 90 Days #270 tab 01/21/20 03/15/20 Unknown Rx Spiriva with HandiHaler 1 cap INHALATION DAILY 03/05/20 03/15/20 03/05/20 History azithromycin See Rx Instructions .ROUTE 03/05/20 03/15/20 Unknown Rx .COMPLEX #6 tab carbidopa-levodopa 1 tab PO DAILY 03/05/20 03/15/20 03/04/20 History ergocalciferol (vitamin D2) 1,250 mcg PO DAILY 03/05/20 03/15/20 02/27/20 History levalbuterol HCl 1.25 mg INHALATION DAILY 03/05/20 03/15/20 03/05/20 History oxycodone 20 mg tablet 20 mg PO QID PRN 30 Days #120 tab 03/15/20 03/15/20 Unknown Rx pregabalin 150 mg capsule 150 mg PO BID 30 Days #60 cap 03/15/20 03/15/20 Unknown Rx Allergies Allergy/AdvReac Type Severity Reaction Status Date / Time Penicillins Allergy ALGY-Anaphy Verified 03/15/20 14:57 laxis Sulfa (Sulfonamide Allergy Unknown Verified 03/15/20 14:57 Antibiotics) PFSH Acute PFSH: Medical History (Updated 04/07/20 @ 01:06 by Kaci Anderson MD) Abnormal findings on esophagogastroduodenoscopy (EGD) Gastritis/GERD 2019 Arthralgia of cervical spine Back Pain Cervical disc disorder with myelopathy, mid-cervical region, unspecified level Cervical spondylosis without myelopathy Chronic pancreatitis COPD (chronic obstructive pulmonary disease) Discitis Encounter for long-term opiate analgesic use Heart failure with preserved ejection fraction Left bundle branch block Lumbar postlaminectomy syndrome Myocardial infarct Smoker Thrombocytopenia Thought to be drug-induced has follow-up with Dr. Stoll as well Surgical History (Updated 04/07/20 @ 01:03 by Kaci Anderson MD) H/O cardiac catheterization History of lumbar surgery Hx of colonoscopy Sigmoid diverticulosis Stented coronary artery Family History Other Diabetes Hypertension Social History Smoking and tobacco status: current every day smoker cigarettes Packs smoked per day: 0.5 Alcohol intake: never Substance/Drug Use: never Household members: family Housing: House Physical Exam Narrative: EXAM NARRATIVE: Middle-aged female Mary rash No active respiratory distress No active wheezing or stridor Lung auscultation reveals bilateral breath sounds without any adventitious sounds, diminished breath sounds without crackles S1, S2 clinically does not look fluid overloaded Abdomen soft nontender nondistended bowel sound present No lower extremity edema gangrene or ulcer Neurologically nonfocal exam She has resting tremors, recently got terbutaline by EMS, patient is denying history of Parkinson's Saturating well on 4 L nasal cannula Appropriate mood and affect Data : 04/06/20 23:10 04/06/20 23:10 A&P Assessment and plan (1) CHF exacerbation: Status: Acute (2) Smoker: Status: Chronic (3) Cervical spondylosis without myelopathy: Status: Chronic (4) Thrombocytopenia: Status: Acute (5) Left bundle branch block: Status: Acute (6) Acute respiratory failure with hypoxia: Status: Acute Additional A&P Information Acute exacerbation of diastolic congestive heart failure due to active smoking and underlying COPD She is na?ve to Lasix I would use 40 mg of Lasix for now Clinically does not look fluid overloaded however BNP 9000 with mild interstit ial markings right greater than left Requesting CTA chest to rule out infiltrate and PE Echo in the morning Check TSH Acute hypoxic respiratory failure due to CHF exacerbation Currently saturating well on 4 L nasal cannula, at home she uses 2 L No active respiratory distress Rule out PE with CTA chest Normal pH with relative hypoxia Nicotine dependence: Counseled on smoking cessation and benefit with underlying COPD and CHF multiple comorbidities patient is stating that she wants to quit at this time Thrombocytopenia: No active bleeding, I would go ahead and use DVT prophylaxis with Lovenox for now, it was thought secondary to Lyrica Follow-up closely with use of Lovenox, no documentation of heparin-induced thrombocytopenia in the past Left bundle branch block chronic QTC prolongation 507 We will check magnesium level Multiple PVCs noted Continue metoprolol succinate Coronary disease without active chest pain Continue aspirin, statin, metoprolol succinate and Imdur Resting tremors: Patient denies Parkinson's disease however on carbidopa levodopa I would hold this medication until we figure out the indication, kindly touch base with PCP in the morning Hypokalemia: Repleted Full code DVT prophylaxis Lovenox Cardiac diet Attestations Medical Necessity Statement*: Anticipating discharge in less than 48 hours currently need initiation of diuretics for CHF exacerbation with underlying oxygen dependent COPD Time Spent in Patient Care: 50mins Coding Level of Care Code 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
--- NOTE | 2020-04-07 00:20 | CTR_ITS ---
PROCEDURE INFORMATION: Exam: CT Angiography Chest With Contrast Exam date and time: 04/07/2020 12:30 AM Age: 69 years old Clinical indication: Shortness of breath; Patient HX: Dyspnea. SOB. Hypoxia. TECHNIQUE: Imaging protocol: Computed tomographic angiography of the chest with intravenous contrast. 3D rendering (Not supervised by radiologist): MIP and/or 3D reconstructed images were created by the technologist. Radiation optimization: All CT scans at this facility use at least one of these dose optimization techniques: automated exposure control; mA and/or kV adjustment per patient size (includes targeted exams where dose is matched to clinical indication); or iterative reconstruction. Contrast material: OMNI 350; Contrast volume: 78 ml; Contrast route: INTRAVENOUS (IV); COMPARISON: CT angio chest PE protcl [id number] 03/05/2020 4:11 PM RADIATION DOSE METRICS: Total DLP (mGy-cm): 483.44 FINDINGS: Pulmonary arteries: Normal. No pulmonary emboli. Aorta: Unremarkable. No aortic aneurysm. No aortic dissection. Lungs: There are subpleural emphysematous bleb seen within the right apex appearing stable compared with 03/05/2020. Strandy opacities are seen in the left lung base likely representing atelectasis versus chronic pleural parenchymal scarring. Pleural space: Unremarkable. No pneumothorax. No pleural effusion. Heart: Calcifications are seen within the coronary arteries. Lymph nodes: There are small retroperitoneal and periportal lymph nodes seen that are below CT criteria for lymphadenopathy. Spleen: The a 2 cm isodense lesions seen adjacent to the spleen compatible with a benign splenule. Bones/joints: Unremarkable. No acute fracture. Soft tissues: Unremarkable. CT/CT angio chest PE protcl [id number] IMPRESSION: 1. There is no evidence for pulmonary emboli. 2. There are no acute chest findings. Stable chest CT compared with 03/05/2020. Radiation Dose CTDIVOL = (mGy): DLP = 483.44 (mGy-cm)
[2020-04-07] MEDS: FUROsemide 10 mg/mL SDV 4mL 40 MG IVP (00:33)
--- NOTE | 2020-04-07 01:11 | USCV_ITS ---
Li Power Age: 69 Gender: F : 1950 Exam Date: 04/07/2020 06:32 Ordering Phys: Kaci Anderson MD Technologist: Michael Fortune Exam Location: [facility] [place] Indication: CHF BP: 134 / 74 HR: 82 Rhythm: Sinus Technical Quality: Fair MEASUREMENTS (Male / Female) Normal Values 2D ECHO LV Diastolic Diameter PLAX 5.0 cm 4.2 - 5.9 / 3.9 - 5.3 cm LV Systolic Diameter PLAX 4.2 cm IVS Diastolic Thickness 1.9 cm 0.6 - 1.0 / 0.6 - 0.9 cm IVS Systolic Thickness 2.6 cm LVPW Diastolic Thickness 1.3 cm 0.6 - 1.0 / 0.6 - 0.9 cm LVPW Systolic Thickness 1.3 cm LVOT Diameter 2.1 cm LV Ejection Fraction 2D Teich 33.4 % LA Diameter 3.6 cm LA Width 3.8 cm LA Height 5.8 cm RA Width 4.1 cm RA Height 5.1 cm M-MODE LV Diastolic Diameter MM 4.9 cm 4.2 - 5.9 / 3.9 - 5.3 cm LV Systolic Diameter MM 4.3 cm LV Ejection Fraction MM Teich 26.0 % IVS Diastolic Thickness MM 2.0 cm 0.6 - 1.0 / 0.6 - 0.9 cm IVS Systolic Thickness MM 2.1 cm LVPW Diastolic Thickness MM 1.1 cm 0.6 - 1.0 / 0.6 - 0.9 cm LVPW Systolic Thickness MM 1.5 cm RV Diastolic Diameter MM 1.5 cm Aortic Annulus Diameter 3.4 cm LA Ao Ratio MM 1.1 MV E Point Septal Separation 1.1 cm DOPPLER AV Peak Velocity 141.0 cm/s LVOT Peak Velocity 96.0 cm/s AV Area Cont Eq vti 2.6 cm squared AV Area Cont Eq pk 2.3 cm squared MV Area PHT 4.9 cm squared Mitral E to A Ratio 0.6 MV E' Velocity 51.0 cm/s Mitral E to LV E' Septal Ratio 22.2 TR Peak Velocity 158.0 cm/s TR Peak Gradient 10.0 mmHg TV Peak E Velocity 57.0 cm/s Right Atrial Pressure 3.0 mmHg Pulmonary Artery Systolic Pressu 13.0 mmHg PV Peak Velocity 87.0 cm/s FINDINGS Left Ventricle Normal left ventricular cavity size. Increased left ventricular wall thickness. Mild concentric left ventricular hypertrophy. Mildly decreased left ventricular systolic function. Left ventricular ejection fraction is estimated at 45-50 %. Mild global hypokinesis. Abnormal septal motion consistent with conduction abnormality. Grade I diastolic dysfunction (abnormal relaxation filling pattern), normal to mildly elevated filling pressures. Right Ventricle Normal right ventricular size and systolic function. Right ventricular systolic pressure 13 mmHg. Right Atrium Normal right atrial size. Left Atrium Normal left atrial size. Mitral Valve Structurally normal mitral valve. Trace mitral valve regurgitation. Aortic Valve Aortic valve not well visualized. No aortic valve stenosis. Trace aortic valve regurgitation. Tricuspid Valve Tricuspid valve not well visualized. Trace tricuspid valve regurgitation. Pulmonic Valve Structurally normal pulmonic valve. Trace pulmonary valve regurgitation. Pericardium No pericardial effusion. Aorta Normal-sized aortic root. CONCLUSIONS 1. Normal left ventricular cavity size and mildly decreased systolic function. Left ventricular ejection fraction is estimated at 45-50 %. Mild global hypokinesis. Grade I diastolic dysfunction (abnormal relaxation filling pattern), normal to mildly elevated filling pressures. 2. Normal pulmonary artery pressure. 3. Trace mitral valve regurgitation. 4. When compared to previous 2 echoes from 04/20/2019, 08/21/2018 there has been no significant change. Cat Lowery MD (Electronically Signed) Final Date: 07 April 2020 12:47 S
[2020-04-07 02:02] LABS: Magnesium 1.3 mg/dL (1.7-2.3); Thyroid Stimulating Hormone 1.27 uIU/mL (0.27-4.20)
[2020-04-07] MEDS: LORazepam 2 mg/mL INJ 1 mL 1 MG IVP (03:09)
[2020-04-07] MEDS: iohexol 350 mg/mL 100 mL Btl IV (03:25)
[2020-04-07 03:30] LABS: Basophils % 0.6 %; Eosinophils % 0.2 %; Hematocrit 42.3 % (37.0-47.0); Lymphocytes # 0.8 10^3/uL (0.8-4.8); Mean Corpuscular HGB Conc 30.7 g/dL (30.0-36.0); Mean Corpuscular Hemoglobin 28.5 pg (28.0-34.0); Mean Corpuscular Volume 92.8 fL (81-99); Mean Platelet Volume 12.1 fL (7.4-10.4); Monocytes # 0.4 10^3/uL (0.2-0.9); Monocytes % 8.7 %; Neutrophils # 3.83 10^3/uL (1.8-7.7); Neutrophils % 75.3 %; Nucleated Red Blood Cells % 0 %; Platelet Count 105 10^3/cmm (130-400); Red Blood Count 4.56 10^6/uL (4.1-5.3); Red Cell Distribution Width 17.1 % (12.1-15.1); White Blood Count 5.1 10^3/uL (4.0-10.0)
[2020-04-07 03:51] LABS: Anion Gap 16.2 (5-19); Blood Urea Nitrogen 16 mg/dL (8-23); Calcium 10.1 mg/dL (8.5-10.5); Carbon Dioxide 30 mmol/L (22-29); Chloride 102 mmol/L (98-107); Glomerular Filtration Rate 71.5 mL/min (90-130); Glucose 117 mg/dL (65-115); Osmolality Calculated 297 mOsm/kg (285-295); Potassium 3.2 mmol/L (3.5-5.1); Sodium 145 mmol/L (136-145)
[2020-04-07 04:14] LABS: Glucose Point of Care 141 mg/dL (70-110)
[2020-04-07 05:05] LABS: ABG PCO2 48.8 mmHg (35-45); ABG PH Result 7.47 (7.35-7.45); Base Excess ABG 10.1 mmol/L (-2.0-2.0); Blood Gas Sample Site Brachial, right; Blood Gas Sample Type Arterial; HCO3 ABG 35.3 mmol/L (22-26); Oxygen Device NC; PO2 ABG 49.5 mmHg (80.0-100.0)
[2020-04-07] MEDS: enoxaparin 40 mg/0.4 mL Syringe SUBCUT (06:48)
[2020-04-07] MEDS: potassium chloride ER 10 mEq Tablet 40 MEQ PO (08:40)
[2020-04-07] MEDS: pregabalin 150 mg Capsule PO ×2 (08:40→18:26)
[2020-04-07] MEDS: isosorbide mononitrate ER 30 mg Tablet PO (08:40)
[2020-04-07] MEDS: atorvastatin 40 mg Tablet PO (08:40)
[2020-04-07] MEDS: pantoprazole DR 40 mg Tablet PO (08:41)
[2020-04-07] MEDS: levothyroxine 25 mcg Tablet PO (08:41)
[2020-04-07] MEDS: metoprolol succinate ER (24 HR) 25 mg Tablet PO (08:41)
[2020-04-07] MEDS: levothyroxine 112 mcg Tablet PO (08:41)
[2020-04-07] MEDS: aspirin 81 mg Chew Tablet PO (08:41)
[2020-04-07] MEDS: roflumilast 500 mcg Tablet PO (08:41)
[2020-04-07] MEDS: duloxetine 30 mg Capsule PO (08:41)
[2020-04-07] MEDS: fluticasone nasal spray 16gm Btl 1 SPRAY INTRANASAL (08:42)
[2020-04-07] MEDS: FUROsemide 40 mg Tablet PO (08:42)
[2020-04-07] MEDS: levalbuterol 1.25 mg/3 mL Neb INHALATION (08:48)
[2020-04-07] MEDS: oxyCODONE 5 mg IR Tab/Cap 10 MG PO ×2 (08:59→18:55)
[2020-04-07] MEDS: magnesium sulfate premix 2 GM/50 ML PIGGYBACK IV (09:00)
--- NOTE | 2020-04-07 09:47 | PC.CHAP ---
Pastoral Care Encounter/Spiritual Assessment Type of Contact [] Declined early childhood aide classroom visit [] Patient/Family/Request visit [] Outpatient visit [] Follow-up visit [] Physician referral [] Code/Alert [x] Routine visit [] Staff referral [] Actively dying [] Patient sleeping [] Family support [] [] Out of room [] Palliative care [] [] Receiving care in room [] Pre-surgical visit [] Trauma [] Long length of stay [] ICU visit [] Other: Relational/Emotional Strength [] Patient feels connected with others/family/visitors/staff [] Distress [] Loneliness/isolation [] Abandonment Spirituality of Patient [] Person of Jaky [] Attends Yazidi of their Jaky [] Believes in Prayer [] Reads Bible or Rastafari materials [] There are Spiritual issues to be addressed Assistant Hairstylist Interventions [x] Prayer [x] Active listening [x] Non-anxious presence [x] Spiritual/emotional support [] Crisis/trauma care [] Spiritual counseling [] Bereavement support [] Provided bereavement packet [] Provided Bible/devotional materials [] Provided toy/stuffed animal, coloring book to patient or family member [] Provided Communion [] Anointing/Big [place] [] Salvation [x] Completed spiritual assessment [] Other: Impact on Illness or Injury [] Angry [] Fearful [] Anxious [] Often cries [] Exhaustion [] Unable to work [] Unable to attend druze [] Unable to walk/stand [] Unable to read [] Unable to drive [] Unable to eat/drink [] Unable to sleep [] Unable to be with family [] Patient intubated [] Other: Summary Patient confused regarding eating. Resting well. Time spent with patient 10 min
--- NOTE | 2020-04-07 13:14 | PM.PN ---
Subjective Subjective: Interval history: History and physical reviewed in detail. Visited several times throughout the day. Earlier today was confused but I just received Ativan. This afternoon, she is less shaky. Her oxygen has been weaned down. She still seems perhaps slightly confused. Medications: Reviewed: Yes Vitals/I&O/Wt Last Vital Signs Temp 97.9 F 04/07/20 11:06 Pulse 78 04/07/20 11:06 Resp 16 04/07/20 11:06 BP 180/72 04/07/20 11:06 Pulse Ox 92 04/07/20 11:06 04/06/20 04/07/20 04/07/20 22:59 06:59 14:59 Output Total 310 / 310 Balance -310 / -310 Physical Exam Narrative: EXAM NARRATIVE: General exam no apparent distress Cardiovascular regular rate and rhythm Lungs diminished breath sounds bilaterally but no wheezing Abdomen is soft positive bowel sounds Extremities no cyanosis clubbing or edema Data : 04/07/20 03:10 04/07/20 03:10 A&P Assessment and plan (1) CHF exacerbation: Continue Lasix orally currently. Echocardiogram has been repeated demonstrated an EF of 45 to 50%, global hypokinesis with grade 1 diastolic dysfunction. Pulmonary artery pressure is normal and there does not appear to be a significant change from previous. Consistent with acute systolic heart failure Status: Acute (2) Smoker: Status: Chronic (3) Cervical spondylosis without myelopathy: Status: Chronic (4) Thrombocytopenia: Appears to be unstable and longstanding Status: Acute (5) Left bundle branch block: Chronic Status: Acute (6) Acute respiratory failure with hypoxia: Consistent with acute COPD exacerbation. CTA was performed demonstrating no pulmonary embolism Hypercarbia noted Add oral prednisone Add doxycycline secondary to concern of acute bronchitis with acute COPD exacerbation. Continue bronchodilator treatments Status: Acute Additional A&P Information Hypokalemia, supplementation Hypomagnesemia, supplement Confusion. Question of small left cerebellar CVA of unknown age on CT. Will place patient on telemetry. Check MRI Nicotine dependence. Counseling Chronic pain. Secondary to confusion reduced dose of pain medication but will continue. History of coronary disease. Continue beta-arnoldo, statin, aspirin, Imdur Full code DVT prophylaxis Lovenox PT evaluation, secondary to questionable CVA TSH was checked and normal. Attestations Medical Necessity Statement*: Needs continued hospitalization for close monitoring secondary to acute systolic heart failure, acute COPD exacerbation, evaluation of abnormality on CT. Coding Level of Care Code Acute Blueberry Grower for g Fwd Diagnoses CHF exacerbation I50.9 Smoker F17.200 Cervical spondylosis without myelopathy M47.812 Thrombocytopenia D69.6 Left bundle branch block I44.7 Acute respiratory failure with hypoxia J96.01
--- NOTE | 2020-04-07 16:00 | MRR_ITS ---
PROCEDURE INFORMATION: Exam: MR Head Without Contrast Exam date and time: 04/07/2020 4:20 PM Age: 69 years old Clinical indication: Abnormal findings; Abnormal radiologic findings of head/skull; Not specified; Additional info: Abnormal CT possible cerebellar infarct TECHNIQUE: Imaging protocol: MR of the head without contrast. COMPARISON: 1. MR head wo con* [id number] 06/07/2019 2:[address] head wo con* [id number] 04/06/2020 11:22:18 PM FINDINGS: Brain: There are multiple small foci of restricted diffusion throughout the cerebral and cerebellar hemispheres. Some of these lesions appear to contain mild corresponding decreased signal on the ADC map. Increased T2 signal is noted within these areas. The findings are compatible with acute/subacute infarcts, likely embolic. There is no hemorrhagic conversion. Extensive patchy increased T2 signal is present throughout the cerebral white matter. This is nonspecific, but may represent advanced chronic small vessel ischemic disease. The chronic sequela of vasculitis is possible. A small chronic left occipital lobe infarct is noted. Ventricles: No hydrocephalus. Bones/joints: Unremarkable. Sinuses: Normal as visualized. No acute sinusitis. Mastoid air cells: Normal as visualized. No mastoid effusion. Orbits: Unremarkable. Soft tissues: Unremarkable. MR/MR head wo con* [id number] IMPRESSION: Multiple small acute/subacute infarcts throughout the cerebral and cerebellar hemispheres. An embolic etiology from the heart or aortic arch is most likely.
--- NOTE | 2020-04-07 16:47 | PC.RESP ---
SMOKING CESSATION AND PULMONARY REHAB INFORMATION SENT TO PATIENT.
[2020-04-07] MEDS: doxycycline 100 mg Tablet PO (18:26)
[2020-04-07] MEDS: enoxaparin 80 mg/0.8 mL Syringe 70 MG SUBCUT (18:26)
[2020-04-07] MEDS: predniSONE 20 mg Tablet PO (18:27)
[2020-04-08] VITALS (16 sets, daily range): BP systolic 102–152; BP diastolic 56–78; PULSE 73–91; RESP 14–20; TEMP 36.6–36.9; O2SAT 87–98
[2020-04-08] MEDS: oxyCODONE 5 mg IR Tab/Cap 10 MG PO ×4 (01:22→19:35)
[2020-04-08] MEDS: levalbuterol 1.25 mg/3 mL Neb INHALATION ×3 (02:40→15:49)
[2020-04-08 05:59] LABS: Basophils % 0.2 %; Hematocrit 41.6 % (37.0-47.0); Hemoglobin 12.7 g/dL (11.5-15.3); Lymphocytes # 0.7 10^3/uL (0.8-4.8); Lymphocytes % 11.7 %; Mean Corpuscular HGB Conc 30.5 g/dL (30.0-36.0); Mean Corpuscular Hemoglobin 27.6 pg (28.0-34.0); Mean Corpuscular Volume 90.4 fL (81-99); Mean Platelet Volume 12.3 fL (7.4-10.4); Monocytes # 0.3 10^3/uL (0.2-0.9); Monocytes % 4.4 %; Neutrophils # 4.71 10^3/uL (1.8-7.7); Neutrophils % 83.5 %; Nucleated Red Blood Cells % 0 %; Platelet Count 118 10^3/cmm (130-400); Red Cell Distribution Width 16.9 % (12.1-15.1); White Blood Count 5.6 10^3/uL (4.0-10.0)
[2020-04-08 06:26] LABS: Alanine Aminotransferase 268 U/L (0-33); Alkaline Phosphatase 91 IU/L (35-105); Anion Gap 12.1 (5-19); Aspartate Amino Transferase 21 U/L (0-32); Blood Urea Nitrogen 19 mg/dL (8-23); Calcium 9.7 mg/dL (8.5-10.5); Carbon Dioxide 33 mmol/L (22-29); Chloride 98 mmol/L (98-107); Globulin 2.2 g/dL (1.3-4.6); Glomerular Filtration Rate 71.5 mL/min (90-130); Glucose 135 mg/dL (65-115); Magnesium 1.6 mg/dL (1.7-2.3); Osmolality Calculated 287 mOsm/kg (285-295); Potassium 4.1 mmol/L (3.5-5.1); Sodium 139 mmol/L (136-145); Total Bilirubin 0.9 mg/dL (0.15-1.2); Total Protein 6.2 g/dL (6.6-8.7)
[2020-04-08] MEDS: enoxaparin 80 mg/0.8 mL Syringe 70 MG SUBCUT (06:36)
[2020-04-08] MEDS: doxycycline 100 mg Tablet PO ×2 (08:58→17:32)
[2020-04-08] MEDS: roflumilast 500 mcg Tablet PO (08:58)
[2020-04-08] MEDS: levothyroxine 25 mcg Tablet PO (08:58)
[2020-04-08] MEDS: magnesium sulfate premix 2 GM/50 ML PIGGYBACK IV (08:58)
[2020-04-08] MEDS: levothyroxine 112 mcg Tablet PO (08:58)
[2020-04-08] MEDS: pregabalin 150 mg Capsule PO ×2 (08:58→17:32)
[2020-04-08] MEDS: atorvastatin 40 mg Tablet PO (08:59)
[2020-04-08] MEDS: isosorbide mononitrate ER 30 mg Tablet PO (08:59)
[2020-04-08] MEDS: duloxetine 30 mg Capsule PO (08:59)
[2020-04-08] MEDS: aspirin 81 mg Chew Tablet PO (08:59)
[2020-04-08] MEDS: pantoprazole DR 40 mg Tablet PO (08:59)
[2020-04-08] MEDS: metoprolol succinate ER (24 HR) 25 mg Tablet PO (08:59)
[2020-04-08] MEDS: FUROsemide 40 mg Tablet PO (08:59)
[2020-04-08] MEDS: predniSONE 20 mg Tablet PO (08:59)
[2020-04-08] MEDS: fluticasone nasal spray 16gm Btl 1 SPRAY INTRANASAL (09:02)
--- NOTE | 2020-04-08 09:43 | P.PN_ITS ---
Subjective Subjective: Interval history: Li is much more alert conversive today. We went over her medical problems again. She reports she will not go to a nursing facility, only allowing home health. Therapy has worked with her and believes this could be appropriate at this time. Medications: Reviewed: Yes Vitals/I&O/Wt Last Vital Signs Temp 98.1 F 04/08/20 07:44 Pulse 91 04/08/20 09:00 Resp 20 H 04/08/20 08:55 BP 109/59 04/08/20 07:44 Pulse Ox 94 04/08/20 08:55 04/07/20 04/08/20 04/08/20 22:59 06:59 14:59 Intake Total 240 / 520 Output Total 650 / 1250 Balance -410 / -730 Weight last 48 hrs Weight 72.575 kg Physical Exam Narrative: EXAM NARRATIVE: General exam no apparent distress Cardiovascular regular rate and rhythm Lungs diminished breath sounds bilaterally but no wheezing Abdomen is soft positive bowel sounds Extremities no cyanosis clubbing or edema Neurologic: Generalized shakiness but no focal weakness. Data : 04/08/20 05:26 04/08/20 05:26 A&P Assessment and plan (1) CHF exacerbation: Continue Lasix orally currently. Echocardiogram has been repeated demonstrated an EF of 45 to 50%, global hypokinesis with grade 1 diastolic dysfunction. Pulmonary artery pressure is normal and there does not appear to be a significant change from previous. Consistent with acute systolic heart failure This is currently compensated. Status: Acute (2) Smoker: Counseled on abstinence. Status: Chronic (3) Cervical spondylosis without myelopathy: Status: Chronic (4) Thrombocytopenia: Appears to be unstable and longstanding Status: Acute (5) Left bundle branch block: Chronic Status: Acute (6) Acute respiratory failure with hypoxia: Consistent with acute COPD exacerbation. CTA was performed demonstrating no pulmonary embolism Hypercarbia noted Continue oral prednisone Continue doxycycline secondary to concern of acute bronchitis with acute COPD exacerbation. Continue bronchodilator treatments Status: Acute Additional A&P Information Acute CVA. Multiple infarcts noted throughout the cerebral and cerebellar hemispheres concerning for embolic phenomenon. Placed on Lovenox yesterday will be converted to Eliquis tonight. Carotid duplex pending. Echocardiogram demonstrated no thrombus Hypokalemia, supplemented Hypomagnesemia, supplement again today Confusion. Secondary to CVA. This appears to have resolved. Nicotine dependence. Counseling Chronic pain. Muscle relaxant discontinued. Pain medicine reduced. History of coronary disease. Continue beta-arnoldo, statin, aspirin, Imdur Full code DVT prophylaxis Lovenox Continue PT/OT evaluations TSH was checked and normal. Plan is home with home health Attestations Medical Necessity Statement*: Needs continued hospitalization for close monitoring after multiple infarcts found on MRI consistent with acute CVA. Coding Level of Care Code Acute X Ray Consultant for Chg Fwd Diagnoses CHF exacerbation I50.9 Smoker F17.200 Cervical spondylosis without myelopathy M47.812 Thrombocytopenia D69.6 Left bundle branch block I44.7 Acute respiratory failure with hypoxia J96.01
--- NOTE | 2020-04-08 17:26 | USR_ITS ---
PROCEDURE INFORMATION: Exam: US Duplex Bilateral Extracranial Arteries Exam date and time: 04/08/2020 6:14 AM Age: 69 years old Clinical indication: Other: Falls; Additional info: CVA TECHNIQUE: Imaging protocol: Real-time Duplex ultrasound scan of the bilateral carotid and vertebral arteries combining adame scale, color Doppler and spectral waveform analysis. Bilateral exam. COMPARISON: MRI brain April 07, 2020 FINDINGS: Right common carotid artery: Unremarkable. No occlusion or stenosis. Waveforms are normal. Systolic velocity 77 cm proximal, 95 mid and 87 distal. Right internal carotid artery: Focal heterogeneous calcified plaque at the origin. No occlusion or stenosis. Waveforms are normal. Peak systolic velocity 63 cm/s proximal, 60 mid and 55 distal. Right ICA/CCA ratio: 0.72, within normal limits. Right external carotid artery: Patent. Focal calcified plaque at the origin. Right vertebral artery: Unremarkable. Antegrade flow. Left common carotid artery: Focal calcified plaque distally. No occlusion or stenosis. Waveforms are normal. Peak systolic velocity 108 cm proximal, 71 mid and 41 distal. Left internal carotid artery: Focal heterogeneous calcified plaque at the origin. No occlusion or stenosis. Waveforms are normal. Peak systolic velocity 72 cm/s proximal, 51 mid and 66 distal. Left ICA/CCA ratio: 1.74, within normal limits. Left external carotid artery: Patent. Focal calcified plaque at the origin. Left vertebral artery: Unremarkable. Antegrade flow. US/CV carotid duplex BI* [id number] IMPRESSION: Vessels patent bilaterally. Mild calcified plaque causing mild less than 50% stenosis bilateral ICAs. REFERENCES: SRU CRITERIA. The degree of internal carotid artery stenosis is based on criteria defined by the Society of Radiologists in Ultrasound (SRU). Normal is no stenosis. Mild is less than 50% stenosis. Moderate is 50-69% stenosis. Severe is greater than 69% stenosis to near occlusion. Near occlusion is a markedly narrowed lumen. Total occlusion is no detectable patent lumen.
[2020-04-08] MEDS: apixaban 5 mg Tablet PO (17:32)
[2020-04-09] VITALS (9 sets, daily range): BP systolic 106–132; BP diastolic 61–73; PULSE 67–80; RESP 16–18; TEMP 36.4–36.8; O2SAT 90–97
[2020-04-09] MEDS: levalbuterol 1.25 mg/3 mL Neb INHALATION ×2 (00:20→08:30)
[2020-04-09] MEDS: oxyCODONE 5 mg IR Tab/Cap 10 MG PO ×2 (01:17→07:59)
[2020-04-09] MEDS: diclofenac 1% Topical Gel 100 gm 1 APPLIC TOPICAL (05:31)
[2020-04-09 06:34] LABS: Blood Urea Nitrogen 29 mg/dL (8-23); Calcium 9.7 mg/dL (8.5-10.5); Carbon Dioxide 36 mmol/L (22-29); Chloride 97 mmol/L (98-107); Glomerular Filtration Rate 55.3 mL/min (90-130); Glucose 123 mg/dL (65-115); Magnesium 1.7 mg/dL (1.7-2.3); Osmolality Calculated 286 mOsm/kg (285-295); Sodium 139 mmol/L (136-145)
[2020-04-09] MEDS: roflumilast 500 mcg Tablet PO (07:56)
[2020-04-09] MEDS: duloxetine 30 mg Capsule PO (07:57)
[2020-04-09] MEDS: pregabalin 150 mg Capsule PO (07:57)
[2020-04-09] MEDS: atorvastatin 40 mg Tablet PO (07:57)
[2020-04-09] MEDS: levothyroxine 112 mcg Tablet PO (07:58)
[2020-04-09] MEDS: aspirin 81 mg Chew Tablet PO (07:58)
[2020-04-09] MEDS: levothyroxine 25 mcg Tablet PO (07:59)
[2020-04-09] MEDS: predniSONE 20 mg Tablet PO (07:59)
[2020-04-09] MEDS: apixaban 5 mg Tablet PO (08:00)
[2020-04-09] MEDS: pantoprazole DR 40 mg Tablet PO (08:00)
[2020-04-09] MEDS: doxycycline 100 mg Tablet PO (08:01)
[2020-04-09] MEDS: metoprolol succinate ER (24 HR) 25 mg Tablet PO (08:01)
[2020-04-09] MEDS: FUROsemide 40 mg Tablet PO (08:01)
[2020-04-09] MEDS: fluticasone nasal spray 16gm Btl 1 SPRAY INTRANASAL (08:02)
[2020-04-09] MEDS: isosorbide mononitrate ER 30 mg Tablet PO (08:02)
--- NOTE | 2020-04-09 10:26 | PM.DCS ---
Discharge Providers Date of Admission: 04/07/20 17:39 Date of Discharge: April 09, 2020 Attending Provider at Admission: Kaci Anderson MD Attending Provider at Discharge: David Mason MD Primary Care Provider: Vivien Butler-Corrie Diagnoses at Discharge Discharge Diagnosis (1) CHF exacerbation: Status: Acute Problem details: EF 45% grade 1 diastolic dysfunction (2) Smoker: Status: Chronic (3) Cervical spondylosis without myelopathy: Status: Chronic (4) Thrombocytopenia: Status: Acute Problem details: Thought to be drug-induced has follow-up with Dr. Stoll as well (5) Left bundle branch block: Status: Acute (6) Acute respiratory failure with hypoxia: Status: Acute (7) CVA (cerebral vascular accident): Status: Acute Problem details: Multiple areas of infarct. Per MRI. Started on Eliquis April 08, 2020 Reason for Visit Reason for Visit: DIFF BREATHING/ HX COPD Hospital Course Hospital Course: Li is a 69-year-old white female who presented to the hospital with confusion, history of fall, and concern of fluid overload. Secondary to dyspnea a CTA of her chest was obtained. This did not demonstrate any pulmonary embolism. Lasix was initiated. She also received oral prednisone, pulmonary toilet and doxycycline for COPD exacerbation. Initial CT head was abnormal with possible CVA and cerebellar area unknown age. Therefore an MRI was obtained, which demonstrated multiple areas of acute and subacute infarct. Echocardiogram was performed demonstrating EF of 45 to 50%, no significant change from previous. Carotid duplex was performed demonstrating no flow limitation. Telemetry was obtained while in the hospital and no evidence of atrial fibrillation. However, secondary to multiple areas of infarct these were thought to be embolic and I discussed the risks and benefit of anticoagulation with the patient including and/or permanent disability from bleeding. She elected to start on anticoagulation. This was discussed with her daughter as well. She initially went on Lovenox, which was converted to Eliquis. By April 09 the patient had no confusion, and was ready for discharge home. She refused any long-term facility placement, instead wanted to go home with home health and home physical therapy. Physical therapy had seen her and believe she was appropriate for the home setting. She was instructed not to smoke, counseling occurred 3 to 5 minutes during her hospital stay. Physical Exam Narrative: EXAM NARRATIVE: General exam no apparent distress Cardiovascular regular rate and rhythm Lungs clear but with diminished breath sounds bilaterally Abdomen is soft with positive bowel sounds Extremities no cyanosis clubbing or edema Discharge Data Data Completed and Pending: Completed Studies During Hospitalization Category Date Time Status CT head wo con* [id number] Urgent Cat Scan 04/06/20 22:47 Completed CTA chest [CT ang io chest PE protcl [id number]] Urgent Cat Scan 04/07/20 00:20 Completed XR chest 1V aubree ble [id number] Urgent Exams 04/06/20 22:44 Completed MR head wo con* [id number] Routine MRI 04/07/20 16:00 Completed CV carotid duplex BI* [id number] Routine Ultrasound 04/08/20 17:26 Completed CV echo complete* [id number] Routine Ultrasound 04/07/20 01:11 Completed Labs from last 24 hours 04/09/20 05:35 Sodium 139 Potassium 4.0 Chloride 97 L Carbon Dioxide 36 H Anion Gap 10.0 BUN 29 H Creatinine 1.0 H GFR Calculation 55.3 L Glucose 123 H Calculated Osmolal ity 286 Calcium 9.7 Magnesium 1.7 Vitals: Last Vital Signs Temp 97.7 F 04/09/20 07:59 Pulse 77 04/09/20 08:44 Resp 18 04/09/20 08:35 BP 132/73 04/09/20 07:59 Pulse Ox 90 04/09/20 08:35 Discharge Plan Discharge Patient Disposition: Home Health Service Condition: Stable Prescriptions: New oxycodone 5 mg Tablet 10 mg PO Q6H PRN (Reason: Severe Pain) Qty: 20 RF: 0 doxycycline monohydrate 100 mg Tablet 100 mg PO BID Qty: 14 RF: 0 Eliquis 5 mg Tablet 5 mg PO BID Qty: 60 RF: 0 furosemide [Lasix] 20 mg tablet 20 mg PO QAM Qty: 30 RF: 0 Continued atorvastatin 40 mg tablet 40 mg PO DAILY RF: 0 duloxetine [Cymbalta] 30 mg capsule,delayed release(DR/EC) 60 mg PO DAILY RF: 0 Daliresp 500 mcg tablet 500 mcg PO DAILY RF: 0 fluticasone propionate 50 mcg/actuation spray,suspension 1 spray INTRANASAL DAILY RF: 0 isosorbide mononitrate 30 mg tablet extended release 24 hr 30 mg PO DAILY RF: 0 levothyroxine 137 mcg capsule 137 mcg PO DAILY RF: 0 pantoprazole 40 mg tablet,delayed release (DR/EC) 40 mg PO DAILY RF: 0 Symbicort 160-4.5 mcg/actuation HFA aerosol inhaler 2 puff INHALATION BID RF: 0 metoprolol succinate 25 mg tablet extended release 24 hr 25 mg PO DAILY RF: 0 ergocalciferol (vitamin D2) 1,250 mcg (50,000 unit) capsule See Rx Instructions .ROUTE .COMPLEX RF: 0 levalbuterol HCl 1.25 mg/3 mL solution for nebulization 1.25 mg INHALATION DAILY RF: 0 Spiriva with HandiHaler 18 mcg Capsule, W/Inhalation Device 1 cap INHALATION DAILY RF: 0 pregabalin 150 mg Capsule 150 mg PO TID RF: 0 aspirin 81 mg Tablet,Chewable 81 mg PO DAILY RF: 0 Discontinued methocarbamol 500 mg tablet 500 mg PO TID PRN (Reason: spasms) 90 Days Qty: 270 RF: 0 oxycodone 20 mg tablet 20 mg PO QID PRN (Reason: pain) 30 Days Qty: 120 RF: 0 carbidopa-levodopa 25-100 mg Tablet,Disintegrating 1 tab PO BEDTIME RF: 0 Referrals: Anjana Stapleton MD [Physician] - 2 weeks Vivien Butler FNP-C [Primary Care Provider] - 4-7 days Discharge Diet: Cardiac Discharge Activity: Increase activity as tolerated Activity Restrictions/Additional Instructions: No smoking Take all medicine as prescribed Keep follow-up as arranged. Discharge Attestations Time Spent in Discharge Care*: greater than 30 min Quality Metrics Clinical Quality Measures During this hospital stay, did patient experience: Stroke Contraindication to Antithrombotic: Antithrombotic prescribed Contraindication to Anticoagulation: Anticoagulation prescribed Contraindication to Statin: Statin prescribed and None Coding Level of Care Code Acute Scrap Drop Operator for [facility] Fwd Diagnoses CHF exacerbation I50.9 Smoker F17.200 Cervical spondylosis without myelopathy M47.812 Thrombocytopenia D69.6 Left bundle branch block I44.7 Acute respiratory failure with hypoxia J96.01 CVA (cerebral vascular accident) I63.9
--- NOTE | 2020-04-09 14:25 | PC.NURSE ---
MUNDO CANCELLED TO [facility] AND CALLED INTO [facility] BY THIS NURSE.
== END 2020-04-09 13:15 | disposition home health service (06) | DRG 64 ==
LOC: ER 04-07 00:17 → MEDSURG 04-07 00:36
PROVIDERS: Emergency Medicine; Admitting Provider Internal Medicine; PCP Nurse Practitioner Family; Visit Provider Internal Medicine
DX: I63.9 Cerebral infarction, unspecified (principal); J96.01 Acute respiratory failure with hypoxia; I50.31 Acute diastolic (congestive) heart failure; J44.1 Chronic obstructive pulmonary disease with (acute) exacerbation; I11.0 Hypertensive heart disease with heart failure; I44.7 Left bundle-branch block, unspecified; D69.6 Thrombocytopenia, unspecified; M47.892 Other spondylosis, cervical region; F17.210 Nicotine dependence, cigarettes, uncomplicated; Z91.81 History of falling; Z79.82 Long term (current) use of aspirin; Z99.81 Dependence on supplemental oxygen; Z95.5 Presence of coronary angioplasty implant and graft; E87.6 Hypokalemia; E83.42 Hypomagnesemia; G89.29 Other chronic pain
CPT/HCPCS: 12345; 36415; 36416; 36600; 70450; 70551; 71045; 71275; 80048; 80053; 82803; 82805; 82962; 83735; 83880; 84443; 85025; 85610; 93005; 93306; 93880; 94640; 94660; 96372; 96375; 97110; 97116; 97162; 97535; 99282; G0378; J1650; J1940; J2060; J3475; J7512; J7614; Q9967

== ENCOUNTER → 2020-05-04 09:09 | Outpatient (BNVA) | payer MEDICARE, OTHER, SELFPAY | PROVIDERS: PCP Nurse Practitioner Family; Visit Provider Anesthesiology | DX: M54.41 Lumbago with sciatica, right side (principal); M54.42 Lumbago with sciatica, left side; M54.9 Dorsalgia, unspecified; M96.1 Postlaminectomy syndrome, not elsewhere classified; M50.020 Cervical disc disorder with myelopathy, mid-cervical region, unspecified level; M47.812 Spondylosis without myelopathy or radiculopathy, cervical region; F17.210 Nicotine dependence, cigarettes, uncomplicated; Z79.891 Long term (current) use of opiate analgesic; Z71.6 Tobacco abuse counseling | CPT/HCPCS: 99214 ==

== ENCOUNTER → 2020-05-24 12:40 | Outpatient (BNVA) | payer MEDICARE, OTHER, SELFPAY | PROVIDERS: PCP Nurse Practitioner Family; Visit Provider Anesthesiology | DX: M54.42 Lumbago with sciatica, left side (principal); M54.41 Lumbago with sciatica, right side; M50.020 Cervical disc disorder with myelopathy, mid-cervical region, unspecified level; M47.812 Spondylosis without myelopathy or radiculopathy, cervical region; M96.1 Postlaminectomy syndrome, not elsewhere classified; M54.9 Dorsalgia, unspecified; F17.210 Nicotine dependence, cigarettes, uncomplicated; Z79.891 Long term (current) use of opiate analgesic | CPT/HCPCS: 99213; 99214 ==

== ENCOUNTER → 2020-05-25 14:30 | Outpatient (BNVA) | payer MEDICARE, OTHER, SELFPAY | PROVIDERS: PCP Nurse Practitioner Family; Referring Provider Internal Medicine; Visit Provider Specialist | DX: R56.9 Unspecified convulsions (principal); G89.4 Chronic pain syndrome; F17.210 Nicotine dependence, cigarettes, uncomplicated; Z86.73 Personal history of transient ischemic attack (TIA), and cerebral infarction without residual deficits | CPT/HCPCS: 99215 ==

== ENCOUNTER → 2020-06-21 14:34 | Outpatient (BNVA) | payer MEDICARE, OTHER, SELFPAY | PROVIDERS: PCP Nurse Practitioner Family; Visit Provider Specialist | DX: G93.40 Encephalopathy, unspecified (principal); R56.9 Unspecified convulsions | CPT/HCPCS: 95816 ==

== ENCOUNTER → 2020-06-22 12:47 | Outpatient (BNVA) | payer MEDICARE, OTHER, SELFPAY | PROVIDERS: PCP Nurse Practitioner Family; Visit Provider Anesthesiology | DX: M50.020 Cervical disc disorder with myelopathy, mid-cervical region, unspecified level (principal); M47.812 Spondylosis without myelopathy or radiculopathy, cervical region; M54.9 Dorsalgia, unspecified; M96.1 Postlaminectomy syndrome, not elsewhere classified; F17.210 Nicotine dependence, cigarettes, uncomplicated; Z79.891 Long term (current) use of opiate analgesic | CPT/HCPCS: 99213; 99214 ==

== ENCOUNTER 2020-07-18 14:41 | Inpatient (IN) | payer MEDICARE, OTHER, SELFPAY ==
[2020-07-18 14:46] VITALS: BP 105/57; PULSE 82; RESP 16; TEMP 36.3; O2SAT 90; BMI 25.0
--- NOTE | 2020-07-18 15:12 | W.ED.GENADLT ---
HPI - General Adult General: Chief complaint: General Medical Stated complaint: syncope, LIM, diarrhea Time Seen by Provider: 07/18/20 14:46 History of Present Illness: HPI narrative: 70-year-old female who presents to the emergency room with complaints of diarrhea and cough for the last 4 days. She also had a lot of myalgias. She has a history of COPD she has not recently been on any oral antibiotics. She has taken some [id number] antidiarrheals with mild relief. No known Covid exposures that she is aware of. Onset (ago): day(s) (4) Relieving factors: none Exacerbating factors: none Associated symptoms: Reports cough and short of breath; Deny chest pain, confusion, diaphoresis, decreased appetite, dyspnea, fevers/chills, headache(s), malaise, nausea, rash, palpitations, seizures, syncope, vomiting or weakness Treatments prior to arrival: none Review of Systems Const: Denies: malaise or diaphoresis ENMT: Denies: throat pain, ear or mastoid pain, nasal discharge or nasal congestion Card: Denies: chest pain, palpitations or syncope Resp: Denies: dyspnea GI: Denies: nausea or vomiting : Denies: flank pain, difficulty voiding, dysuria, urinary frequency or urinary urgency Skin/Breast: Denies: rash Neuro: Denies: headache(s) or confusion PFS ED PFSH: Medical History (Updated 07/22/20 @ 10:01 by Ancelmo Llamas DO) Abnormal findings on esophagogastroduodenoscopy (EGD) Gastritis/GERD 2019 Arthralgia of cervical spine Back Pain Cervical disc disorder with myelopathy, mid-cervical region, unspecified level Cervical spondylosis without myelopathy Chronic pancreatitis COPD (chronic obstructive pulmonary disease) -oxygen dependent, 2 L at baseline Discitis Encounter for long-term opiate analgesic use Heart failure with preserved ejection fraction Left bundle branch block Lumbar postlaminectomy syndrome Myocardial infarct PRES (posterior reversible encephalopathy syndrome) -on 02/2018 Renal cyst Smoker Thrombocytopenia Thought to be drug-induced has follow-up with Dr. 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 History of lumbar surgery Hx of colonoscopy Sigmoid diverticulosis Stented coronary artery Family History Other Diabetes Hypertension Social History (Updated 07/18/20 @ 19:17 by Elissa Duenas MD) Smoking and tobacco status: current every day smoker cigarettes [ Other cigarette details: 0.5 TO 1 PK PER DAY ] Alcohol intake: never Lives independently: Yes Housing: House History of recent travel: No Physical Exam Const: COMMON NORMALS: no acute distress GENERAL APPEARANCE: cooperative and comfortable ORIENTATION/CONSCIOUSNESS: Yes awake, Yes oriented to person, Yes oriented to place and Yes oriented to time HENMT: COMMON NORMALS: normocephalic, atraumatic and hearing grossly normal bilaterally HEAD & SCALP: normocephalic and atraumatic Neck/C-Spine: COMMON NORMALS: no JVD Resp: COMMON NORMALS: normal respiratory effort, No retractions, No use of accessory muscles and clear to auscultation bilaterally AUSCULTATION: clear to auscultation bilaterally Cardio: COMMON NORMALS: no JVD, regular rate, regular rhythm and No murmurs present (Cardio) RATE: regular rate RHYTHM: regular rhythm GI: COMMON NORMALS: Soft to palpation and No hepatosplenomegaly present AUSCULTATION: Yes normoactive bowel sounds PALPATION: Yes Soft to palpation, No Tenderness to palpation present (GI), No Guarding due to palpation present (GI) and Yes No hepatosplenomegaly present Extremity: COMMON NORMALS: normal to inspection, capillary refill normal, no clubbing, cyanosis or edema, no calf tenderness and no pedal edema Neuro: SENSORIUM/ORIENTATION: Yes oriented to person, Yes oriented to place and Yes oriented to time Skin: COMMON NORMALS: no rashes or lesions noted GENERAL SKIN EXAM: no rashes or lesions noted Course Vital Signs: Vital signs: Vital Signs Temperature 98.3 F 07/22/20 08:00 Pulse Rate 105 H 07/22/20 08:50 Respiratory Rate 20 H 07/22/20 08:00 Blood Pressure 158/83 07/22/20 08:00 Pulse Oximetry 95 07/22/20 08:50 MDM - General Adult MDM Narrative: Medical decision making narrative: Suspicious for COVID-19. Discussed Dr. Weaver we will admit as a PUI increase fluids monitor electrolytes orders written Lab Data: Labs: Lab Results 07/18/20 07/18/2007/18/20 Range/Units 15:30 15:31 15:31 WBC 9.7 (4.0-10.0) 10^3/ uL RBC 4.98 (4.1-5.3) 10^6/u L Hgb 14.2 (11.5-15.3) g/dL Hct 44.0 (37.0-47.0) % MCV 88.4 (81-99) fL MCH 28.5 (28.0-34.0) pg MCHC 32.3 (30.0-36.0) g/dL RDW 16.6 H (12.1-15.1) % Plt Count 145 (130-400) 10^3/c mm MPV 12.9 H (7.4-10.4) fL Neut % (Auto) 69.8 % Lymph % (Auto) 14.0 % Gulf % (Auto) 4.9 % Eos % (Auto) 10.7 % Baso % (Auto) 0.4 % Neut # (Auto) 6.75 (1.8-7.7) 10^3/u L Lymph # (Auto) 1.4 (0.8-4.8) 10^3/u L Gulf # (Auto) 0.5 (0.2-0.9) 10^3/u L Eos # (Auto) 1.0 H (0.0-0.8) 10^3/u L Baso # (Auto) 0.0 (0.0-0.1) 10^3/u L Nucleated RBC % (a uto) 0 % Nucleated RBCs # 0.0 /100WBC Fibrinogen Cancelled D-Dimer Cancelled Specimen Type Arterial Sample Site Brachial, right ABG pH 7.30 L (7.35-7.45) ABG pCO2 58.2 H (35-45) mmHg ABG pO2 103.0 H (80.0-100.0) mmH g ABG HCO3 28.8 H (22-26) mmol/L ABG Base Excess 1.1 (-2.0-2.0) mmol/ L Patel Test N/a Hematocrit 43.2 (37-47) % O2 Delivery Device Nc O2 Liters/Min 2.0 % FiO2 28.0 % Blood Donor Unit Assistant ID Gd Sodium Potassium Chloride Carbon Dioxide Anion Gap BUN Creatinine GFR Calculation Glucose Calculated Osmolal ity Lactic Acid (0.5-2.2) mmol/L Calcium Total Bilirubin AST ALT Alkaline Phosphata se C-Reactive Protein Total Protein Albumin Globulin SARS-CoV-2 Ag (Rap id) (Negative) 07/18/20 07/18/20 07/18/20 Range/Units 15:31 15:31 16:10 WBC (4.0-10.0) 10^3/ uL RBC (4.1-5.3) 10^6/u L Hgb (11.5-15.3) g/dL Hct (37.0-47.0) % MCV (81-99) fL MCH (28.0-34.0) pg MCHC (30.0-36.0) g/dL RDW (12.1-15.1) % Plt Count (130-400) 10^3/c mm MPV (7.4-10.4) fL Neut % (Auto) % Lymph % (Auto) % Gulf % (Auto) % Eos % (Auto) % Baso % (Auto) % Neut # (Auto) (1.8-7.7) 10^3/u L Lymph # (Auto) (0.8-4.8) 10^3/u L Gulf # (Auto) (0.2-0.9) 10^3/u L Eos # (Auto) (0.0-0.8) 10^3/u L Baso # (Auto) (0.0-0.1) 10^3/u L Nucleated RBC % (a uto) % Nucleated RBCs # /100WBC Fibrinogen 401 D-Dimer 0.73 H Specimen Type Sample Site ABG pH (7.35-7.45) ABG pCO2 (35-45) mmHg ABG pO2 (80.0-100.0) mmH g ABG HCO3 (22-26) mmol/L ABG Base Excess (-2.0-2.0) mmol/ L Patel Test Hematocrit (37-47) % O2 Delivery Device O2 Liters/Min % FiO2 % Blood Donor Unit Assistant ID Sodium Cancelled Potassium Cancelled Chloride Cancelled Carbon Dioxide Cancelled Anion Gap Cancelled BUN Cancelled Creatinine Cancelled GFR Calculation Cancelled Glucose Cancelled Calculated Osmolal ity Cancelled Lactic Acid 1.2 (0.5-2.2) mmol/L Calcium Cancelled Total Bilirubin Cancelled AST Cancelled ALT Cancelled Alkaline Phosphata se Cancelled C-Reactive Protein Cancelled Total Protein Cancelled Albumin Cancelled Globulin Cancelled SARS-CoV-2 Ag (Rap id) (Negative) 07/18/20 07/18/20 Range/Units 16:10 17:01 WBC (4.0-10.0) 10^3/ uL RBC (4.1-5.3) 10^6/u L Hgb (11.5-15.3) g/dL Hct (37.0-47.0) % MCV (81-99) fL MCH (28.0-34.0) pg MCHC (30.0-36.0) g/dL RDW (12.1-15.1) % Plt Count (130-400) 10^3/c mm MPV (7.4-10.4) fL Neut % (Auto) % Lymph % (Auto) % Gulf % (Auto) % Eos % (Auto) % Baso % (Auto) % Neut # (Auto) (1.8-7.7) 10^3/u L Lymph # (Auto) (0.8-4.8) 10^3/u L Gulf # (Auto) (0.2-0.9) 10^3/u L Eos # (Auto) (0.0-0.8) 10^3/u L Baso # (Auto) (0.0-0.1) 10^3/u L Nucleated RBC % (a uto) % Nucleated RBCs # /100WBC Fibrinogen D-Dimer Specimen Type Sample Site ABG pH (7.35-7.45) ABG pCO2 (35-45) mmHg ABG pO2 (80.0-100.0) mmH g ABG HCO3 (22-26) mmol/L ABG Base Excess (-2.0-2.0) mmol/ L Patel Test Hematocrit (37-47) % O2 Delivery Device O2 Liters/Min % FiO2 % Blood Donor Unit Assistant ID Sodium 135 L Potassium 3.2 L Chloride 89 L Carbon Dioxide 30 H Anion Gap 19.2 H BUN 62 H Creatinine 4.5 H GFR Calculation 9.7 L Glucose 119 H Calculated Osmolal ity 299 H Lactic Acid (0.5-2.2) mmol/L Calcium 7.4 L Total Bilirubin 0.4 AST 11 ALT 6 Alkaline Phosphata se 100 C-Reactive Protein 80.7 H Total Protein 5.8 L Albumin 3.4 L Globulin 2.4 SARS-CoV-2 Ag (Rap id) Negative (Negative) Discharge Plan Discharge Patient Disposition: Admitted As Inpatient Admit Provider: Elissa Duenas Clinical Impression: Acute kidney injury, Dehydration, Encephalopathy Condition: Stable Referrals: [facility] ([facility]) [Outside] Interventions: ED Discharge Assessment Last Done: 07/18/20 19:52 ED Charges Last Done: 07/18/20 19:52 Discharge Date/Time: 07/18/20 20:10 Coding Level of Care Code ED Front End Developer Javascript Html Css for Chg Fwd Exam Comprehensive
[2020-07-18 15:39] LABS: Basophils % 0.4 %; Eosinophils % 10.7 %; Hemoglobin 14.2 g/dL (11.5-15.3); Lymphocytes # 1.4 10^3/uL (0.8-4.8); Mean Corpuscular HGB Conc 32.3 g/dL (30.0-36.0); Mean Corpuscular Hemoglobin 28.5 pg (28.0-34.0); Mean Corpuscular Volume 88.4 fL (81-99); Mean Platelet Volume 12.9 fL (7.4-10.4); Monocytes # 0.5 10^3/uL (0.2-0.9); Monocytes % 4.9 %; Neutrophils # 6.75 10^3/uL (1.8-7.7); Neutrophils % 69.8 %; Nucleated Red Blood Cells % 0 %; Platelet Count 145 10^3/cmm (130-400); Red Blood Count 4.98 10^6/uL (4.1-5.3); Red Cell Distribution Width 16.6 % (12.1-15.1); White Blood Count 9.7 10^3/uL (4.0-10.0)
[2020-07-18 15:47] LABS: ABG PCO2 58.2 mmHg (35-45); Arterial Blood Gas Hematocrit 43.2 % (37-47); Base Excess ABG 1.1 mmol/L (-2.0-2.0); Blood Gas Sample Type Arterial; HCO3 ABG 28.8 mmol/L (22-26)
[2020-07-18 15:48] LABS: Blood Gas Operator Identificat GD; Blood Gas Sample Site Brachial, right; Oxygen Device NC
[2020-07-18 16:02] VITALS: RESP 18
[2020-07-18 16:02] LABS: Lactic Sepsis W/Reflex 1.2 mmol/L (0.5-2.2)
[2020-07-18] MEDS: morphine 4 mg/mL SDV 1 mL 2 MG IVP (16:02)
[2020-07-18 16:51] LABS: Fibrinogen 401 mg/dL (174-498)
[2020-07-18 16:54] LABS: Alanine Aminotransferase 6 U/L (0-33); Albumin Level 3.4 g/dL (3.5-5.2); Alkaline Phosphatase 100 IU/L (35-105); Anion Gap 19.2 (5-19); Aspartate Amino Transferase 11 U/L (0-32); Blood Urea Nitrogen 62 mg/dL (8-23); C Reactive Protein 80.7 mg/L (0.0-4.9); Calcium 7.4 mg/dL (8.5-10.5); Carbon Dioxide 30 mmol/L (22-29); Chloride 89 mmol/L (98-107); D Dimer 0.73 ug/mIFEU (0-0.59); Globulin 2.4 g/dL (1.3-4.6); Glomerular Filtration Rate 9.7 mL/min (90-130); Glucose 119 mg/dL (65-115); Osmolality Calculated 299 mOsm/kg (285-295); Potassium 3.2 mmol/L (3.5-5.1); Sodium 135 mmol/L (136-145); Total Bilirubin 0.4 mg/dL (0.15-1.2); Total Protein 5.8 g/dL (6.6-8.7)
[2020-07-18 17:24] LABS: SARS Covid-2 Antigen Negative (Negative)
--- NOTE | 2020-07-18 17:50 | XR_ITS ---
WS: [id number] Portable AP upright chest, 07/18/2020 Clinical Data: dyspnea/cough Comparison: Portable chest, 04/06/2020. Findings: No nodules, masses or effusions are seen. The heart is enlarged. The pulmonary vascularity is not increased. No pneumonia or pneumothorax is seen. The aortic arch and descending aorta show denzel cification and tortuosity. The patient's clothing obscures minimal detail over the central mediastinu m. XR/XR chest 1V portable [id number] Impression: Cardiomegaly and atherosclerosis.
--- NOTE | 2020-07-18 19:05 | P.HP_ITS ---
Providers/Chief Complaint Admitting Physician: Elissa Duenas MD Primary Care Provider: [facility] Chief Complaint: diarrhea History of Present Illness Li Power is a 70 year old female with PMHx noted below presents with complaints of difficulty with urination, nausea, diarrhea for approximately 1 week. She has had some cough with minimal expectoration, unsure what color sputum is, unsteady gait and generally been feeling unwell during that timeframe. She is somewhat limited in her ability to give history, additional information obtained from ER report as well as review of medical record including [facility] records. She is known to me from previous admission approximately 3 years ago during which time she presented with significant mental status changes and was diagnosed with PRES. she has had a somewhat complicated neurological history and is currently undergoing work-up and follow- up with Dr. Stapleton. She denies having had any chest pain, has had a normal appetite, denies change in her sense of taste or smell, exposure to any known Covid 19+ individuals, blood in her urine or her stool, dysuria, fever. She denies any recent changes to her medications, recent antibiotic use; reports compliance with her medication regimen as prescribed. She has been rapid tested for COVID-19 which is negative, PCR testing has also been requested and is currently pending due to ongoing clinical suspicion for possible COVID-19 infection. Work-up so far indicates a normal CBC, sodium of 135, potassium of 3.2, chloride of 89, BUN of 62, creatinine of 4.5, hypercapnia on ABG, elevated D-dimer and CRP, lactic acid of 1.2. She has received 1 L normal saline bolus and have requested an additional liter to be given. I have also requested Stanford catheter placement to accurately monitor her ins and outs. Chest x-ray has been done and is pending report. She is status post right nephrectomy due to congenital anomaly and with noted significant acute renal impairment will require further management including continued IV fluid hydration. Due to on going clinical suspicion for possible COVID-19 infection she will be admitted to the medical surgical floor Covid unit. Review of Systems Const: Reports: chills and fatigue; Denies: fever(s) or change in appetite Eyes: Denies: change in vision ENMT: Reports: dry mouth Card: Denies: chest pain, swelling of feet/ankles, lightheadedness, dyspnea on exertion or orthopnea Resp: Reports: productive cough (green sputum); Denies: dyspnea GI: Reports: nausea and diarrhea; Denies: abdominal pain, vomiting, hematemesis or hematochezia : Reports: difficulty voiding and oliguria; Denies: dysuria or hematuria Musc: Denies: back pain Skin/Breast: Denies: rash Neuro: Reports: weakness in extremities; Denies: numbness in extremities Psych: Denies: anxiety Medications/Allergies Home Medications Medication Instructions Recorded Confirmed Last Taken Type atorvastatin 40 mg tablet 40 mg PO DAILY 11/22/19 07/18/20 07/17/20 History budesonide-formoterol HFA 160 2 puff INHALATION BID 11/22/19 07/18/20 07/18/20 History mcg-4.5 mcg/actuation aerosol inhaler duloxetine 30 mg capsule,delayed 30 mg PO BID 11/22/19 07/18/20 07/18/20 History release fluticasone propionate 50 1 spray INTRANASAL DAILY 11/22/19 07/18/20 03/05/20 History mcg/actuation nasal spray,suspension isosorbide mononitrate 30 mg 30 mg PO DAILY 11/22/19 07/18/20 07/18/20 History tablet,extended release 24 hr pantoprazole 40 mg tablet,delayed 40 mg PO DAILY 11/22/19 07/18/20 07/18/20 History release metoprolol succinate 25 mg 25 mg PO DAILY tab 11/26/19 07/18/20 07/17/20 History tablet,extended release 24 hr Spiriva with HandiHaler 1 cap INHALATION DAILY 03/05/20 07/18/20 07/18/20 History levalbuterol HCl 1.25 mg INHALATION DAILY 03/05/20 07/18/20 03/05/20 History apixaban [Eliquis] 5 mg PO BID #60 tab 04/09/20 07/18/20 Unknown Rx furosemide [Lasix] 20 mg PO QAM #30 tab 04/09/20 07/18/20 07/18/20 Rx ergocalciferol (vitamin D2) 50 mcg See Rx Instructions .ROUTE .COMPLEX 06/22/20 07/18/20 07/07/20 History (2,000 unit) capsule zjyehk-yftjrhit-hqsuyoy 1 cap PO QID 06/22/20 07/18/20 07/18/20 History 36,000-114,000-180,000 unit capsule,delay rel oxycodone 20 mg tablet 20 mg PO QID PRN 30 Days #120 tab 06/22/20 07/18/20 07/18/20 Rx pregabalin 150 mg capsule 150 mg PO TID 30 Days #90 cap 06/22/20 07/18/20 07/18/20 Rx levothyroxine 150 mcg PO DAILY 07/18/20 07/18/20 07/18/20 History loratadine 10 mg PO DAILY PRN 07/18/20 07/18/20 Unknown History metoclopramide HCl 10 mg PO Q6H PRN 07/18/20 07/18/20 07/18/20 History nitroglycerin 0.4 mg SUBLINGUAL Q5M PRN 07/18/20 07/18/20 Unknown History roflumilast [Daliresp] 500 mcg PO DAILY 07/18/20 07/18/20 07/18/20 History Allergies Allergy/AdvReac Type Severity Reaction Status Date / Time insect venom Allergy PASS OUT Verified 06/22/20 13:00 nut - unspecified Allergy ALGY-Anaphy Verified 07/18/20 14:59 laxis Penicillins Allergy ALGY-Anaphy Verified 06/22/20 12:59 laxis Sulfa (Sulfonamide Allergy Unknown Verified 06/22/20 12:59 Antibiotics) guacamole Allergy ALGY-Anaphy Uncoded 07/18/20 14:59 laxis PFSH Acute PFSH: Medical History (Updated 07/18/20 @ 19:23 by Elissa Duenas MD) Abnormal findings on esophagogastroduodenoscopy (EGD) Gastritis/GERD 2019 Arthralgia of cervical spine Back Pain Cervical disc disorder with myelopathy, mid-cervical region, unspecified level Cervical spondylosis without myelopathy Chronic pancreatitis COPD (chronic obstructive pulmonary disease) -oxygen dependent, 2 L at baseline Discitis Encounter for long-term opiate analgesic use Heart failure with preserved ejection fraction Left bundle branch block Lumbar postlaminectomy syndrome Myocardial infarct PRES (posterior reversible encephalopathy syndrome) -on 02/2018 Renal cyst Smoker Thrombocytopenia Thought to be drug-induced has follow-up with Dr. 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 History of lumbar surgery Hx of colonoscopy Sigmoid diverticulosis Stented coronary artery Family History Other Diabetes Hypertension Social History (Updated 07/18/20 @ 19:17 by Elissa Duenas MD) Smoking and tobacco status: current every day smoker cigarettes [ Other cigarette details: 0.5 TO 1 PK PER DAY ] Alcohol intake: never Substance/Drug Use: never Lives independently: Yes Housing: House History of recent travel: No Vitals/I&O/Wt Last Vital Signs Temp 97.3 F L 07/18/20 14:46 Pulse 82 07/18/20 14:46 Resp 18 07/18/20 16:02 BP 105/57 07/18/20 14:46 Pulse Ox 90 07/18/20 14:46 Weight last 48 hrs Weight 68.039 kg Physical Exam Const: COMMON NORMALS: no acute distress and alert GENERAL APPEARANCE: cooperative, comfortable and disheveled ORIENTATION/CONSCIOUSNESS: Yes awake and Yes oriented to place HENMT: COMMON NORMALS: normocephalic, atraumatic and hearing grossly normal bilaterally HEAD & SCALP: normocephalic and atraumatic MOUTH: moist mucous membranes abnormal Details: parched Eye: COMMON NORMALS: Equal, round and reactive pupils present, EOMs intact bilaterally and conjunctivae normal CONJUNCTIVA: Yes conjunctivae normal PUPIL: Yes Equal, round and reactive pupils present Neck/C-Spine: COMMON NORMALS: full ROM GENERAL: Yes normal visual inspection and Yes trachea midline Resp: COMMON NORMALS: normal respiratory effort, No retractions, No use of accessory muscles and clear to auscultation bilaterally EFFORT & INSPECTION: Yes able to speak in complete sentences, Yes symmetric chest movement and No tachypneic OTHER: -on 3 L NC -diminished though equal breath sounds bilaterally Cardio: COMMON NORMALS: regular rate, regular rhythm, S1 normal heart sound present, S2 normal heart sound present and No murmurs present (Cardio) RATE: regular rate RHYTHM: regular rhythm HEART SOUNDS: S1 normal heart sound present and S2 normal heart sound present GI: COMMON NORMALS: Normal to inspection, nondistended, normoactive bowel sounds present, Soft to palpation and non-tender PALPATION: Yes Soft to palpation, No Guarding due to palpation present (GI) and No Rigid due to palpation Extremity: COMMON NORMALS: normal to inspection, full ROM and no clubbing, cyanosis or edema; negative for no pedal edema Neuro: COMMON NORMALS: moves all extremities, no focal motor deficits and no sensory deficits noted SENSORIUM/ORIENTATION: Yes Orientation impaired Psych: COMMON NORMALS: mental status grossly normal, Normal thought process present, cooperative, normal affect and speech normal SPEECH: Yes normal spee ch THOUGHT PROCESS: Normal thought process present Skin: COMMON NORMALS: no rashes or lesions noted, no jaundice, no petechiae and no mottling GENERAL SKIN EXAM: no rashes or lesions noted Data : 07/18/20 15:31 07/18/20 16:10 A&P Assessment and plan (1) Acute kidney injury: -noted renal impairment superimposed on CKD stage 2 -likely secondary to GI losses and diminished oral intake -baseline Cr < 1 -has hx of R nephrectomy secondary to congenital anomaly -IVF hydration, give additional 1 L NS bolus while in ED -avoid nephrotoxins, renally dose meds -hold diuretics, pregabalin, duloxetine -place Stanford catheter given difficulty with urination at home -order UA, urine lytes -also noted hypokalemia, increased anion gap metabolic acidosis. Repeat labs in AM following some hydration -monitor vital signs Status: Acute (2) Dehydration: -with noted diarrhea -order stool studies -IVF hydration Status: Acute (3) Encephalopathy: -is alert but seems somewhat disoriented -strict fall precautions, re-orient as needed -could be due to acute renal impairment -she appears to have an unsteady gait at baseline -from review of medical record has a somewhat complicated neurological history including prior PRES and CVA with some noted episodes of syncope, tremors. Ongoing w/u including EEG by Neurology Status: Acute Additional A&P Information -clinical suspicion for possible COVID-19 infection given some respiratory symptoms, GI symptoms; rapid testing negative, PCR pending, isolation precautions. F/u CXR report, pending influenza. Noted elevation of d-dimer, CRP -Chronic diastolic CHF; Echo (03/2020): EF=45-50%, G1DD, mild global hypokinesis, trace MR, trace AR, trace TR, trace IA. Diuretics on hold due to renal impairment -hx of CVA with noted multiple areas of infarct on MRI (03/2020); on AC with Eliquis -oxygen dependent COPD, 2 L baseline requirement qhs -chronic pancreatitis; on pancreatic enzymes -Chronic pain; on opiates; cautious use; follows up with pain management -Chronic smoker, 1 PPD -hx of hyperlipidemia -Hypothyroidism; resume levothyroxine -hx of CAD s/p stenting -cardiac diet as tolerated -GI ppx with PPI -DVT ppx not needed as on Eliquis -Dispo: lives alone -Code status: FULL code -Admit to COVID unit on med-surg floor Attestations Medical Necessity Statement*: Li Power's hospital stay will require greater than 2 midnights for management of acute kidney injury, dehydration, requiring IV fluid hydration and close monitoring of renal function and vital signs. Time Spent in Patient Care: Greater than 35 minutes (>than 50% of time spent in counselling and/or direct pt care on unit) . Coding Level of Care Code Acute Specialized Developer for Brandie Blank Diagnoses Acute kidney injury N17.9 Dehydration E86.0 Encephalopathy G93.40
[2020-07-18] MEDS: sodium chloride 0.9% 1,000 ML 999 ML IV (19:19)
[2020-07-18 19:34] VITALS: BP 149/65; PULSE 79; RESP 16; O2SAT 96
[2020-07-18 19:39] LABS: Urine Appearance SL Hazy (CLEAR); Urine Color Yellow (Yellow)
[2020-07-18 19:40] LABS: Add Urine Microscopic? YES; Bilirubin Urine Neg (Negative); Blood Urine Neg (Negative); Glucose Urine UA Norm (Normal); Ketones Urine Negative (Negative); Leukocyte Esterase Urine Negative (Negative); Nitrate Urine Negative (Negative); Protein Urine Neg (Negative); Urobilinogen Urine Norm (Negative); pH Urine 5 (5-7)
[2020-07-18 19:51] LABS: Add Urine Culture? No; Amorphous Sediment Urine 1+ /hpf; Bacteria Urine 1+ /hpf; WBC Urine 0-4 /hpf (0-5)
[2020-07-18 19:52] VITALS: BP 138/59; PULSE 79; RESP 16; O2SAT 98
[2020-07-18 20:24] VITALS: BP 113/69; PULSE 77; RESP 18; TEMP 36.5; O2SAT 97
[2020-07-18 21:25] LABS: Urine Creatinine 150 mg/dL (28-217)
[2020-07-18 23:05] LABS: Urea Nitrogen,Urine Random 308 mg/dL
[2020-07-18 23:30] LABS: Influenza A by IFA Negative (Negative); Influenza B by IFA Negative (Negative)
[2020-07-18] MEDS: sodium chlor 0.9% + KCl 20 mEq 20 MEQ/1,000 ML BAG 125 MEQ IV (23:33)
[2020-07-18 23:37] VITALS: PULSE 79; RESP 18; O2SAT 97
[2020-07-19] VITALS (11 sets, daily range): BP systolic 108–146; BP diastolic 54–75; PULSE 47–86; RESP 16–20; TEMP 36.6–37.1; O2SAT 91–99
[2020-07-19 04:14] LABS: Basophils # 0.1 10^3/uL (0.0-0.1); Basophils % 0.5 %; Eosinophils # 1.6 10^3/uL (0.0-0.8); Eosinophils % 16.7 %; Hematocrit 36.3 % (37.0-47.0); Hemoglobin 11.7 g/dL (11.5-15.3); Lymphocytes # 2.1 10^3/uL (0.8-4.8); Lymphocytes % 21.5 %; Mean Corpuscular HGB Conc 32.2 g/dL (30.0-36.0); Mean Corpuscular Hemoglobin 28.6 pg (28.0-34.0); Mean Corpuscular Volume 88.8 fL (81-99); Mean Platelet Volume 12.2 fL (7.4-10.4); Monocytes # 0.6 10^3/uL (0.2-0.9); Monocytes % 6.3 %; Neutrophils # 5.28 10^3/uL (1.8-7.7); Neutrophils % 54.8 %; Nucleated Red Blood Cells % 0 %; Platelet Count 132 10^3/cmm (130-400); Red Blood Count 4.09 10^6/uL (4.1-5.3); Red Cell Distribution Width 16.5 % (12.1-15.1); White Blood Count 9.6 10^3/uL (4.0-10.0)
[2020-07-19 04:37] LABS: Alanine Aminotransferase 6 U/L (0-33); Albumin Level 3.3 g/dL (3.5-5.2); Alkaline Phosphatase 83 IU/L (35-105); Anion Gap 15.7 (5-19); Aspartate Amino Transferase 10 U/L (0-32); Blood Urea Nitrogen 66 mg/dL (8-23); Calcium 7.5 mg/dL (8.5-10.5); Carbon Dioxide 30 mmol/L (22-29); Chloride 95 mmol/L (98-107); Globulin 2.2 g/dL (1.3-4.6); Glucose 110 mg/dL (65-115); Osmolality Calculated 304 mOsm/kg (285-295); Potassium 3.7 mmol/L (3.5-5.1); Sodium 137 mmol/L (136-145); Total Bilirubin 0.3 mg/dL (0.15-1.2); Total Protein 5.5 g/dL (6.6-8.7)
[2020-07-19] MEDS: sodium chlor 0.9% + KCl 20 mEq 20 MEQ/1,000 ML BAG 125 MEQ IV ×3 (05:23→21:23)
[2020-07-19] MEDS: oxyCODONE 5 mg IR Tab/Cap 20 MG PO ×2 (05:24→12:44)
--- NOTE | 2020-07-19 05:55 | PC.NURSE ---
Pt continues to have bouts of diarrhea and abdominal cramping. CDiff PCR is still pending. No other needs voiced at this time, will continue to monitor.
[2020-07-19] MEDS: isosorbide mononitrate ER 30 mg Tablet PO (09:29)
[2020-07-19] MEDS: pantoprazole DR 40 mg Tablet PO (09:29)
[2020-07-19] MEDS: apixaban 5 mg Tablet PO ×2 (09:29→17:18)
[2020-07-19] MEDS: levothyroxine 150 mcg Tablet PO (09:29)
[2020-07-19] MEDS: metoprolol succinate ER (24 HR) 25 mg Tablet PO (09:29)
[2020-07-19] MEDS: atorvastatin 40 mg Tablet PO (09:30)
[2020-07-19] MEDS: lipase-protease-amylase Capsule 1 EACH PO ×4 (09:35→21:23)
--- NOTE | 2020-07-19 10:31 | PC.CHAP ---
Pastoral Care Encounter/Spiritual Assessment Type of Contact [] Declined sales and service officer visit [] Patient/Family/Request visit [] Outpatient visit [] Follow-up visit [] Physician referral [] Code/Alert [X] Routine visit [] Staff referral [] Actively dying [] Patient sleeping [] Family support [] [] Out of room [] Palliative care [] [] Receiving care in room [] Pre-surgical visit [] Trauma [] Long length of stay [] ICU visit [] Other: Relational/Emotional Strength [] Patient feels connected with others/family/visitors/staff [] Distress [] Loneliness/isolation [] Abandonment Spirituality of Patient [] Person of Jaky [] Attends Lutheran of their Jaky [] Believes in Prayer [] Reads Bible or Yarsani materials [] There are Spiritual issues to be addressed Brim Shaper Interventions [] Prayer [] Active listening [] Non-anxious presence [] Spiritual/emotional support [] Crisis/trauma care [] Spiritual counseling [] Bereavement support [] Provided bereavement packet [] Provided Bible/devotional materials [] Provided toy/stuffed animal, coloring book to patient or family member [] Provided Communion [] Anointing/Surprise [] Salvation [] Completed spiritual assessment [] Other: Impact on Illness or Injury [] Angry [] Fearful [] Anxious [] Often cries [] Exhaustion [] Unable to work [] Unable to attend restorationism [] Unable to walk/stand [] Unable to read [] Unable to drive [] Unable to eat/drink [] Unable to sleep [] Unable to be with family [] Patient intubated [] Other: Summary Time spent with patient
--- NOTE | 2020-07-19 11:26 | PC.OT ---
OT NOTE: PER PT REPORT; PATIENT WAS INDEPENDENT WITH ALL MOBILITY AND ADLS; NO FURTHER SKILLED OT REQUIRED.
--- NOTE | 2020-07-19 13:06 | P.PN_ITS ---
Subjective Subjective: Interval history: Had 500 mL urine output overnight, remains on IVF, slight improvement in renal function, on 3 L NC, hemodynamically stable and afebrile. COVID-19 PCR pending. Resting quietly in bed, did well with physical therapy earlier this AM. Did have episodes of diarrhea overnight, stool studies negative. Medications: Reviewed: Yes Medication Review Details: Active Medications Generic Name Dose Route Start Last Admin Trade Name Freq PRN Reason Stop Dose Admin Acetaminophen 650 mg 07/18/20 20:24 Tylenol PO Q6H PRN Mild/Mod Pain Or Temp >/= 101 Albuterol Sulfate 2 puff 07/18/20 20:24 Ventolin INHALATION Q4H.RESPIRATORY P RN SHORTNESS OF JULIANA TH Lipase/Protease/Am ylase 1 each 07/19/20 09:00 07/19/20 12:36 Zenpep PO 1 each WM&BEDTIME ANDREW Administration Apixaban 5 mg 07/19/20 09:00 07/19/20 09:29 Eliquis PO 5 mg BID ANDREW Administration Atorvastatin Calci um 40 mg 07/19/20 09:00 07/19/20 09:30 Lipitor PO 40 mg DAILY ANDREW Administration Potassium Chloride /Sodium Chloride 20 meq in 1,000 m ls @ 125 mls/hr 07/18/20 20:24 07/19/20 12:36 Sodium Chlor 0.9 % + Kcl 20 Meq IV 125 mls/hr .Q8H ANDREW Administration Isosorbide Mononit rate 30 mg 07/19/20 09:00 07/19/20 09:29 Imdur PO 30 mg DAILY ANDREW Administration Levothyroxine Sodi um 150 mcg 07/19/20 09:00 07/19/20 09:29 Synthroid PO 150 mcg DAILY ANDREW Administration Metoprolol Succina te 25 mg 07/19/20 09:00 07/19/20 09:29 Toprol Xl PO 25 mg DAILY ANDREW Administration Morphine Sulfate 2 mg 07/18/20 20:24 Morphine IVP Q4H PRN SEVERE PAIN Nitroglycerin 0.4 mg 07/18/20 20:24 Nitrostat SUBLINGUAL Q5M PRN CHEST PAIN Ondansetron HCl 4 mg 07/18/20 20:24 Zofran IVP Q6H PRN NAUSEA AND VOMITI NG Oxycodone HCl 20 mg 07/18/20 21:02 07/19/20 12:44 Oxycodone Ir PO 20 mg QID PRN Administration severe pain Pantoprazole Sodiu m 40 mg 07/19/20 09:00 07/19/20 09:29 Protonix PO 40 mg DAILY ANDREW Administration insect venom Allergy (Verified 06/22/20 13:00) PASS OUT nut - unspecified Allergy (Verified 07/18/20 14:59) ALGY-Anaphylaxis Penicillins Allergy (Verified 06/22/20 12:59) ALGY-Anaphylaxis Sulfa (Sulfonamide Antibiotics) Allergy (Verified 06/22/20 12:59) Unknown guacamole Allergy (Uncoded 07/18/20 14:59) ALGY-Anaphylaxis Vitals/I&O/Wt Last Vital Signs Temp 98.7 F 07/19/20 11:35 Pulse 75 07/19/20 11:35 Resp 18 07/19/20 12:44 BP 113/69 07/19/20 11:35 Pulse Ox 91 07/19/20 11:35 07/18/20 07/19/20 07/19/20 22:59 06:59 14:59 Intake Total 729.167 / 432.704 4716.083 / 1502.083 Output Total 500 / 500 Balance 229.167 / 482.686 3222.083 / 1502.083 Weight last 48 hrs Weight 55.928 kg Weight 68.039 kg Physical Exam Const: COMMON NORMALS: no acute distress and alert GENERAL APPEARANCE: cooperative and comfortable ORIENTATION/CONSCIOUSNESS: Yes awake and Yes confused OTHER: -resting in bed HENMT: COMMON NORMALS: normocephalic, atraumatic, hearing grossly normal bilaterally and moist oral mucous membranes HEAD & SCALP: normocephalic and atraumatic Eye: COMMON NORMALS: Equal, round and reactive pupils present, EOMs intact bilaterally and conjunctivae normal CONJUNCTIVA: Yes conjunctivae normal PUPIL: Yes Equal, round and reactive pupils present Neck/C-Spine: COMMON NORMALS: full ROM GENERAL: Yes normal visual inspection and Yes trachea midline Resp: COMMON NORMALS: normal respiratory effort, No retractions, No use of accessory muscles and clear to auscultation bilaterally EFFORT & INSPECTION: Yes able to speak in complete sentences, Yes symmetric chest movement and No tachypneic AUSCULTATION: clear to auscultation bilaterally OTHER: -on 3 L NC -diminished though equal breath sounds bilaterally Cardio: COMMON NORMALS: regular rate, regular rhythm, S1 normal heart sound present, S2 normal heart sound present and No murmurs present (Cardio) RATE: regular rate RHYTHM: regular rhythm HEART SOUNDS: S1 normal heart sound present and S2 normal heart sound present GI: COMMON NORMALS: Normal to inspection, nondistended, normoactive bowel sounds present, Soft to palpation and non-tender PALPATION: Yes Soft to palpation, No Guarding due to palpation present (GI) and No Rigid due to palpation : BLADDER/KIDNEY EXAM: Yes catheter in place Catheter type (Female): urethral Extremity: COMMON NORMALS: normal to inspection, full ROM and no clubbing, cyanosis or edema; negative for no pedal edema Neuro: COMMON NORMALS: moves all extremities, no focal motor deficits and no sensory deficits noted SENSORIUM/ORIENTATION: Yes alert and Yes Orientation impaired Psych: COMMON NORMALS: mental status grossly normal, Normal thought process present, cooperative, normal affect and speech normal SPEECH: Yes normal speech THOUGHT PROCESS: Normal thought process present Skin: COMMON NORMALS: no rashes or lesions noted, no jaundice, no petechiae and no mottling GENERAL SKIN EXAM: no rashes or lesions noted Urinary Catheter Management^: Stanford: Cath Placed During This Visit: yes Reason for Continuing Indwelling Catheter: Accurate Measurement of Urinary Output in Critically Ill Patients Urinary Catheter Date of Insertion: 07/18/20 Urinary Catheter Time of Insertion: 19:22 Data : 07/19/20 04:02 07/19/20 04:02 Micro: Microbiology 07/18/20 22:23 C.difficile Toxin B Gene (PCR) - Final Stool Routine Collection 07/18/20 22:24 Blood Culture - Preliminary Blood SPECIMEN COLLECTED 07/18/20 22:24 Blood Culture - Preliminary Blood SPECIMEN COLLECTED A&P Assessment and plan (1) Acute kidney injury: -noted renal impairment superimposed on CKD stage 2 -likely secondary to GI losses and diminished oral intake -baseline Cr < 1 -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 AG closed, K wnl, improved lytes -continue to monitor vital signs Status: Acute (2) Dehydration: -with noted diarrhea -C.difficile negative, enteric bacterial panel negative -IVF hydration Status: Acute (3) Encephalopathy: -is alert but seems somewhat disoriented -strict fall precautions, re-orient as needed -could be due to acute renal impairment -she appears to have an unsteady gait at baseline -from review of medical record has a somewhat complicated neurological history including prior PRES and CVA with some noted episodes of syncope, tremors. Ongoing w/u including EEG by Neurology Status: Acute Additional A&P Information -clinical suspicion for possible COVID-19 infection given some respiratory symptoms, GI symptoms; rapid testing negative, PCR pending, isolation precautions. Uremarkable CXR, negative influenza. Noted elevation of d-dimer, CRP -Chronic diastolic CHF; Echo (03/2020): EF=45-50%, G1DD, mild global hypokinesis, trace MR, trace AR, trace TR, trace NJ. Diuretics on hold due to renal impairment -hx of CVA with noted multiple areas of infarct on MRI (03/2020); on AC with Eliquis -oxygen dependent COPD, 2 L baseline requirement qhs -Chronic pancreatitis; on pancreatic enzymes -Chronic pain; on opiates; cautious use; follows up with pain management -Chronic smoker, 1 PPD -hx of hyperlipidemia -Hypothyroidism; on levothyroxine -hx of CAD s/p stenting -cardiac diet as tolerated -GI ppx with PPI -DVT ppx not needed as on Eliquis -Dispo: lives alone -Code status: FULL code Attestations Medical Necessity Statement*: Patient requires hospitalization for continued management of acute renal impairment, dehydration, pending COVID r/o; on continued IVF hydration. Time Spent in Patient Care: 16 - 35 minutes (>than 50% of time spent in co unselling and/or direct pt care on unit) . Coding Level of Care Code Acute Job Compositor for [facility] Fwd Exam Comprehensive Diagnoses Acute kidney injury N17.9 Dehydration E86.0 Encephalopathy G93.40
--- NOTE | 2020-07-19 17:35 | PC.RESP ---
Smoking Cessation and Pulmonary Rehab information sent to patient.
--- NOTE | 2020-07-19 18:46 | PC.NURSE ---
summary Pt stated she feels better today than she had been. She did get a little nauseated this evening so she was given zofran. I encouraged Pt to get up and move around, she refused at noon to sit up in chair. This evening I got her to sit in the chair to eat her dinner. Later I came back in and she was back in bed.
--- NOTE | 2020-07-19 18:49 | PC.NURSE ---
prior summary was wrote on wrong pt.
--- NOTE | 2020-07-19 18:54 | PC.NURSE ---
Summary Pt has been shaky today and has several smelly stinky liquid light brown stool. She complained about a bad headache early today so I gave her her oxy Ir. Daughter has called and was wanting to know what was causing her syncope or black out . I talked with Dr Duenas who said she would talk with daughter.
[2020-07-19] MEDS: albuterol 8 gm MDI 2 PUFF INHALATION (23:20)
[2020-07-20] VITALS (14 sets, daily range): BP systolic 123–158; BP diastolic 59–73; PULSE 68–127; RESP 16–22; TEMP 36.7–37.2; O2SAT 73–100
--- NOTE | 2020-07-20 01:23 | PC.NURSE ---
MORPHINE When pulling morphine a different patient, it was accidentally removed under this patients account in pyxis. It was not administered to this patient. All 4mg of morphine wasted with charge nurse AMY Marrero at as well as wasted in the pyxis.
[2020-07-20 04:29] LABS: Anion Gap 13.4 (5-19); Blood Urea Nitrogen 51 mg/dL (8-23); Calcium 7.9 mg/dL (8.5-10.5); Carbon Dioxide 28 mmol/L (22-29); Chloride 107 mmol/L (98-107); Glomerular Filtration Rate 16.1 mL/min (90-130); Glucose 113 mg/dL (65-115); Osmolality Calculated 312 mOsm/kg (285-295); Potassium 4.4 mmol/L (3.5-5.1); Sodium 144 mmol/L (136-145)
[2020-07-20] MEDS: sodium chlor 0.9% + KCl 20 mEq 20 MEQ/1,000 ML BAG 125 MEQ IV (05:55)
[2020-07-20] MEDS: levothyroxine 150 mcg Tablet PO (08:15)
[2020-07-20] MEDS: lipase-protease-amylase Capsule 1 EACH PO ×4 (08:15→21:15)
[2020-07-20] MEDS: apixaban 5 mg Tablet PO ×2 (08:15→17:33)
[2020-07-20] MEDS: isosorbide mononitrate ER 30 mg Tablet PO (08:15)
[2020-07-20] MEDS: metoprolol succinate ER (24 HR) 25 mg Tablet PO (08:15)
[2020-07-20] MEDS: atorvastatin 40 mg Tablet PO (08:15)
[2020-07-20] MEDS: pantoprazole DR 40 mg Tablet PO (08:15)
[2020-07-20] MEDS: albuterol 8 gm MDI 2 PUFF INHALATION ×4 (08:27→20:48)
--- NOTE | 2020-07-20 08:48 | P.PN_ITS ---
Subjective Subjective: Interval history: COVID-19 PCR testing negative. Had 700 mL urine output overnight, 4 BMs yesterday, stool studies negative. Hemodynamically stable, afebrile, on 4 L NC. Continued improvement in renal function. Can move out of COVID unit. Resting quietly in bed. Medications: Reviewed: Yes Medication Review Details: Current Medications Generic Name Dose Route Start Last Admin Trade Name Freq PRN Reason Stop Dose Admin Albuterol Sulfate 2 puff 07/18/20 20:24 07/20/20 08:27 Ventolin INHALATION 2 puff Q4H.RESPIRATORY P RN Administration SHORTNESS OF JULIANA TH Lipase/Protease/Am ylase 1 each 07/19/20 09:00 07/20/20 08:15 Zenpep PO 1 each WM&BEDTIME ANDREW Administration Apixaban 5 mg 07/19/20 09:00 07/20/20 08:15 Eliquis PO 5 mg BID ANDREW Administration Atorvastatin Calci um 40 mg 07/19/20 09:00 07/20/20 08:15 Lipitor PO 40 mg DAILY ANDREW Administration Potassium Chloride /Sodium Chloride 20 meq in 1,000 m ls @ 125 mls/hr 07/18/20 20:24 07/20/20 05:55 Sodium Chlor 0.9 % + Kcl 20 Meq IV 125 mls/hr .Q8H ANDREW Administration Isosorbide Mononit rate 30 mg 07/19/20 09:00 07/20/20 08:15 Imdur PO 30 mg DAILY ANDREW Administration Levothyroxine Sodi um 150 mcg 07/19/20 09:00 07/20/20 08:15 Synthroid PO 150 mcg DAILY ANDREW Administration Metoprolol Succina te 25 mg 07/19/20 09:00 07/20/20 08:15 Toprol Xl PO 25 mg DAILY ANDREW Administration Oxycodone HCl 20 mg 07/18/20 21:02 07/19/20 12:44 Oxycodone Ir PO 20 mg QID PRN Administration severe pain Pantoprazole Sodiu m 40 mg 07/19/20 09:00 07/20/20 08:15 Protonix PO 40 mg DAILY ANDREW Administration Vitals/I&O/Wt Last Vital Signs Temp 98.8 F 07/20/20 08:00 Pulse 74 07/20/20 08:30 Resp 18 07/20/20 08:30 BP 151/73 07/20/20 08:00 Pulse Ox 94 07/20/20 08:30 07/19/20 07/20/20 07/20/20 22:59 06:59 14:59 Intake Total 1360 / 2862.083 1100 / 3962.083 Output Total 400 / 400 700 / 1100 Balance 960 / 2462.083 400 / 2862.083 Weight last 48 hrs Weight 53.297 kg Weight 55.928 kg Weight 68.039 kg Physical Exam Const: COMMON NORMALS: no acute distress and alert GENERAL APPEARANCE: cooperative and comfortable ORIENTATION/CONSCIOUSNESS: Yes awake and Yes confused OTHER: -resting in bed HENMT: COMMON NORMALS: normocephalic, atraumatic, hearing grossly normal bilaterally and moist oral mucous membranes HEAD & SCALP: normocephalic and atraumatic MOUTH: moist mucous membranes abnormal Details: parched Eye: COMMON NORMALS: Equal, round and reactive pupils present, EOMs intact bilaterally and conjunctivae normal CONJUNCTIVA: Yes conjunctivae normal PUPIL: Yes Equal, round and reactive pupils present Neck/C-Spine: COMMON NORMALS: full ROM GENERAL: Yes normal visual inspection and Yes trachea midline Resp: COMMON NORMALS: normal respiratory effort, No retractions, No use of accessory muscles and clear to auscultation bilaterally EFFORT & INSPECTION: Yes able to speak in complete sentences, Yes symmetric chest movement and No tachypneic AUSCULTATION: clear to auscultation bilaterally OTHER: -on 3 L NC -diminished though equal breath sounds bilaterally Cardio: COMMON NORMALS: regular rate, regular rhythm, S1 normal heart sound present, S2 normal heart sound present and No murmurs present (Cardio) RATE: regular rate RHYTHM: regular rhythm HEART SOUNDS: S1 normal heart sound present and S2 normal heart sound present GI: COMMON NORMALS: Normal to inspection, nondistended, normoactive bowel sounds present, Soft to palpation and non-tender PALPATION: Yes Soft to palpation, No Guarding due to palpation present (GI) and No Rigid due to palpation : BLADDER/KIDNEY EXAM: Yes catheter in place Catheter type (Female): urethral Extremity: COMMON NORMALS: normal to inspection, full ROM and no clubbing, cyanosis or edema; negative for no pedal edema Neuro: COMMON NORMALS: moves all extremities, no focal motor deficits and no sensory deficits noted SENSORIUM/ORIENTATION: Yes alert and Yes Orientation impaired Psych: COMMON NORMALS: mental status grossly normal, Normal thought process present, cooperative, normal affect and speech normal SPEECH: Yes normal speech THOUGHT PROCESS: Normal thought process present Skin: COMMON NORMALS: no rashes or lesions noted, no jaundice, no petechiae and no mottling GENERAL SKIN EXAM: no rashes or lesions noted Urinary Catheter Management^: Stanford: Cath Placed During This Visit: yes Reason for Continuing Indwelling Catheter: Acute Urinary Retention or Obstruction Urinary Catheter Date of Insertion: 07/18/20 Urinary Catheter Time of Insertion: 19:22 Data : 07/19/20 04:02 07/20/20 03:37 Micro: Microbiology 07/18/20 22:24 Blood Culture - Preliminary Blood NEGATIVE TO DATE 07/18/20 22:24 Blood Culture - Preliminary Blood NEGATIVE TO DATE 07/18/20 22:23 Enteric Pathogens (PCR) - Final Stool Routine Collection C.difficile Toxin B Gene (PCR) - Final A&P Assessment and plan (1) Acute kidney injury: -noted renal impairment superimposed on CKD stage 2 -likely secondary to GI losses and diminished oral intake -baseline Cr < 1 -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 AG closed, K wnl, improved lytes -continue to monitor vital signs -renal function improving, continue to monitor Status: Acute (2) Dehydration: -with noted diarrhea -C.difficile negative, enteric bacterial panel negative -IVF hydration Status: Acute (3) Encephalopathy: -is alert but seems somewhat disoriented -strict fall precautions, re-orient as needed -could be due to acute renal impairment to some degree -she appears to have an unsteady gait at baseline -from review of medical record has a somewhat complicated neurological history including prior PRES and CVA with some noted episodes of syncope, tremors. Ongoing w/u including EEG by Neurology, scheduled for sleep-deprived EEG. Has been following up with cardiology as well. Status: Acute Additional A&P Information -clinical suspicion for possible COVID-19 infection given some respiratory symptoms, GI symptoms; rapid testing negative, PCR negative, can d/c isolation precautions. Uremarkable CXR, negative influenza. Noted elevation of d-dimer, CRP -Chronic diastolic CHF; Echo (03/2020): EF=45-50%, G1DD, mild global hypokinesis, trace MR, trace AR, trace TR, trace NJ. Diuretics on hold due to renal impairment -hx of CVA with noted multiple areas of infarct on MRI (03/2020); on AC with Eliquis -oxygen dependent COPD, 2 L baseline requirement qhs -Chronic pancreatitis; on pancreatic enzymes -Chronic pain; on opiates; cautious use; follows up with pain management -Chronic smoker, 1 PPD -hx of hyperlipidemia -Hypothyroidism; on levothyroxine -hx of CAD s/p stenting -cardiac diet as tolerated -GI ppx with PPI -DVT ppx not needed as on Eliquis -Dispo: lives alone and due to ongoing episodes of syncope, may not be safe to return home on her own. Seems open to SNF placement -Code status: FULL code Attestations Medical Necessity Statement*: Patient requires hospitalization for continued management of acute renal impairment, pending COVID-19 test results. Time Spent in Patient Care: 16 - 35 minutes (>than 50% of time spent in counselling and/or direct pt care on unit) . Coding Level of Care Code Acute Surgical Appliances Salesperson for g Fwd Exam Comprehensive Diagnoses Acute kidney injury N17.9 Dehydration E86.0 Encephalopathy G93.40
[2020-07-20] MEDS: duloxetine 30 mg Capsule PO (10:06)
[2020-07-20] MEDS: pregabalin 150 mg Capsule PO ×2 (10:06→17:33)
--- NOTE | 2020-07-20 10:19 | DCPLANNER ---
family wanting pt to go to snf.
[2020-07-20] MEDS: oxyCODONE 5 mg IR Tab/Cap 20 MG PO (15:16)
[2020-07-20 16:19] LABS: Coronavirus Lab Test PTC Negative
[2020-07-20] MEDS: sodium chlor 0.9% + KCl 20 mEq 20 MEQ/1,000 ML BAG 50 MEQ IV (17:33)
[2020-07-21] VITALS (12 sets, daily range): BP systolic 144–184; BP diastolic 72–93; PULSE 78–111; RESP 16–28; TEMP 36.5–36.9; O2SAT 92–98
[2020-07-21 07:11] LABS: Anion Gap 12.4 (5-19); Blood Urea Nitrogen 34 mg/dL (8-23); Calcium 8.5 mg/dL (8.5-10.5); Carbon Dioxide 24 mmol/L (22-29); Chloride 116 mmol/L (98-107); Glomerular Filtration Rate 34.5 mL/min (90-130); Glucose 102 mg/dL (65-115); Osmolality Calculated 314 mOsm/kg (285-295); Potassium 4.4 mmol/L (3.5-5.1); Sodium 148 mmol/L (136-145)
[2020-07-21] MEDS: lipase-protease-amylase Capsule 1 EACH PO ×4 (09:19→20:44)
[2020-07-21] MEDS: atorvastatin 40 mg Tablet PO (09:19)
[2020-07-21] MEDS: apixaban 5 mg Tablet PO ×2 (09:19→18:21)
[2020-07-21] MEDS: isosorbide mononitrate ER 30 mg Tablet PO (09:19)
[2020-07-21] MEDS: pregabalin 150 mg Capsule PO ×2 (09:19→18:21)
[2020-07-21] MEDS: pantoprazole DR 40 mg Tablet PO (09:19)
[2020-07-21] MEDS: metoprolol succinate ER (24 HR) 25 mg Tablet PO (09:19)
[2020-07-21] MEDS: duloxetine 30 mg Capsule PO (09:19)
[2020-07-21] MEDS: levothyroxine 150 mcg Tablet PO (09:19)
--- NOTE | 2020-07-21 10:21 | PC.SOCIAL ---
Pg 2 IMM Explained to pt Pg 2 IMM. No questions voiced. Provided pt a copy. Signed, dated, & timed a copy for chart.
[2020-07-21] MEDS: albuterol 8 gm MDI 2 PUFF INHALATION ×2 (11:02→15:27)
--- NOTE | 2020-07-21 14:37 | P.PN_ITS ---
Subjective Subjective: Interval history: Improved renal function, had 925 mL urine output overnight, hemodynamically stable, afebrile, on 2 L NC. In good spirits, alert and oriented x 3, requesting Stanford catheter removal. Medications: Reviewed: Yes Medication Review Details: Active Medications Generic Name Dose Route Start Last Admin Trade Name Freq PRN Reason Stop Dose Admin Acetaminophen 650 mg 07/18/20 20:24 Tylenol PO Q6H PRN Mild/Mod Pain Or Temp >/= 101 Albuterol Sulfate 2 puff 07/18/20 20:24 07/21/20 11:02 Ventolin INHALATION 2 puff Q4H.RESPIRATORY P RN Administration SHORTNESS OF JULIANA TH Lipase/Protease/Am ylase 1 each 07/19/20 09:00 07/21/20 11:50 Zenpep PO 1 each WM&BEDTIME ANDREW Administration Apixaban 5 mg 07/19/20 09:00 07/21/20 09:19 Eliquis PO 5 mg BID ANDREW Administration Atorvastatin Calci um 40 mg 07/19/20 09:00 07/21/20 09:19 Lipitor PO 40 mg DAILY ANDREW Administration Duloxetine HCl 30 mg 07/20/20 09:00 07/21/20 09:19 Cymbalta PO 30 mg DAILY ANDREW Administration Isosorbide Mononit rate 30 mg 07/19/20 09:00 07/21/20 09:19 Imdur PO 30 mg DAILY ANDREW Administration Levothyroxine Sodi um 150 mcg 07/19/20 09:00 07/21/20 09:19 Synthroid PO 150 mcg DAILY ANDREW Administration Metoprolol Succina te 25 mg 07/19/20 09:00 07/21/20 09:19 Toprol Xl PO 25 mg DAILY ANDREW Administration Morphine Sulfate 2 mg 07/18/20 20:24 Morphine IVP Q4H PRN SEVERE PAIN Nitroglycerin 0.4 mg 07/18/20 20:24 Nitrostat SUBLINGUAL Q5M PRN CHEST PAIN Ondansetron HCl 4 mg 07/18/20 20:24 Zofran IVP Q6H PRN NAUSEA AND VOMITI NG Oxycodone HCl 20 mg 07/18/20 21:02 07/20/20 15:16 Oxycodone Ir PO 20 mg QID PRN Administration severe pain Pantoprazole Sodiu m 40 mg 07/19/20 09:00 07/21/20 09:19 Protonix PO 40 mg DAILY ANDREW Administration Pregabalin 150 mg 07/20/20 09:00 07/21/20 09:19 Lyrica PO 150 mg BID ANDREW Administration insect venom Allergy (Verified 06/22/20 13:00) PASS OUT nut - unspecified Allergy (Verified 07/18/20 14:59) ALGY-Anaphylaxis Penicillins Allergy (Verified 06/22/20 12:59) ALGY-Anaphylaxis Sulfa (Sulfonamide Antibiotics) Allergy (Verified 06/22/20 12:59) Unknown guacamole Allergy (Uncoded 07/18/20 14:59) ALGY-Anaphylaxis Vitals/I&O/Wt Last Vital Signs Temp 98.3 F 07/21/20 11:46 Pulse 81 07/21/20 11:46 Resp 18 07/21/20 11:46 BP 184/93 07/21/20 11:46 Pulse Ox 93 07/21/20 11:46 07/20/20 07/21/20 07/21/20 22:59 06:59 14:59 Intake Total 240 / 1840 240 / 240 Output Total 1075 / 1075 550 / 1625 Balance -835 / 765 -550 / 215 240 / 240 Weight last 48 hrs Weight 75.75 kg Weight 61.054 kg Weight 53.297 kg Physical Exam Const: COMMON NORMALS: no acute distress, patient oriented x3 and alert GENERAL APPEARANCE: cooperative and comfortable ORIENTATION/CONSCIOUSNESS: Yes awake OTHER: -resting in bed, in good spirits HENMT: COMMON NORMALS: normocephalic, atraumatic, hearing grossly normal bilaterally and moist oral mucous membranes HEAD & SCALP: normocephalic and atraumatic MOUTH: moist mucous membranes abnormal Details: parched Eye: COMMON NORMALS: Equal, round and reactive pupils present, EOMs intact bilaterally and conjunctivae normal CONJUNCTIVA: Yes conjunctivae normal PUPIL: Yes Equal, round and reactive pupils present Neck/C-Spine: COMMON NORMALS: full ROM GENERAL: Yes normal visual inspection and Yes trachea midline Resp: COMMON NORMALS: normal respiratory effort, No retractions, No use of accessory muscles and clear to auscultation bilaterally EFFORT & INSPECTION: Yes able to speak in complete sentences, Yes symmetric chest movement and No tachypneic AUSCULTATION: clear to auscultation bilaterally OTHER: -on 2 L NC -diminished though equal breath sounds bilaterally Cardio: COMMON NORMALS: regular rate, regular rhythm, S1 normal heart sound present, S2 normal heart sound present and No murmurs present (Cardio) RATE: regular rate RHYTHM: regular rhythm HEART SOUNDS: S1 normal heart sound present and S2 normal heart sound present GI: COMMON NORMALS: Normal to inspection, nondistended, normoactive bowel sounds present, Soft to palpation and non-tender PALPATION: Yes Soft to palpation, No Guarding due to palpation present (GI) and No Rigid due to palpation : BLADDER/KIDNEY EXAM: Yes catheter in place Catheter type (Female): urethral Extremity: COMMON NORMALS: normal to inspection, full ROM and no clubbing, cyanosis or edema; negative for no pedal edema Neuro: COMMON NORMALS: patient oriented x3, moves all extremities, no focal motor deficits and no sensory deficits noted SENSORIUM/ORIENTATION: Yes alert and Yes Orientation impaired Psych: COMMON NORMALS: mental status grossly normal, Normal thought process present, cooperative, normal affect and speech normal SPEECH: Yes normal speech THOUGHT PROCESS: Normal thought process present Skin: COMMON NORMALS: no rashes or lesions noted, no jaundice, no petechiae and no mottling GENERAL SKIN EXAM: no rashes or lesions noted Urinary Catheter Management^: Stanford: Cath Placed During This Visit: yes Reason for Continuing Indwelling Catheter: Acute Urinary Retention or Obstruction Urinary Catheter Date of Insertion: 07/18/20 Urinary Catheter Time of Insertion: 19:22 Data : 07/19/20 04:02 07/21/20 06:42 A&P Assessment and plan (1) Acute kidney injury: -noted renal impairment superimposed on CKD stage 2 -likely secondary to GI losses and diminished oral intake -baseline Cr < 1 -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 AG closed, K wnl, improved lytes -continue to monitor vital signs -renal function improving, continue to monitor Status: Acute (2) Dehydration: -with noted diarrhea -C.difficile negative, enteric bacterial panel negative -IVF hydration Status: Acute (3) Encephalopathy: -is alert but seems somewhat disoriented -strict fall precautions, re-orient as needed -could be due to acute renal impairment to some degree -she appears to have an unsteady gait at baseline -from review of medical record has a somewhat complicated neurological history including prior PRES and CVA with some noted episodes of syncope, tremors. Ongoing w/u including EEG by Neurology, scheduled for sleep-deprived EEG. Has been following up with cardiology as well. Status: Acute Additional A&P Information -clinical suspicion for possible COVID-19 infection given some respiratory symptoms, GI symptoms; rapid testing negative, PCR negative, can d/c isolation precautions. Uremarkable CXR, negative influenza. Noted elevation of d-dimer, CRP -Chronic diastolic CHF; Echo (03/2020): EF=45-50%, G1DD, mild global hypokinesis, trace MR, trace [place], trace TR, trace [place]. Diuretics on hold due to renal im pairment -hx of CVA with noted multiple areas of infarct on MRI (03/2020); on AC with Eliquis -oxygen dependent COPD, 2 L baseline requirement qhs -Chronic pancreatitis; on pancreatic enzymes -Chronic pain; on opiates; cautious use; follows up with pain management -Chronic smoker, 1 PPD -hx of hyperlipidemia -Hypothyroidism; on levothyroxine -hx of CAD s/p stenting -cardiac diet as tolerated -GI ppx with PPI -DVT ppx not needed as on Eliquis -Dispo: lives alone and due to ongoing episodes of syncope, may not be safe to return home on her own. Seems open to SNF placement but has done well with therapy and HH recommended. -Code status: FULL code Attestations Medical Necessity Statement*: Patient requires hospitalization for continued management of acute renal impairment. Time Spent in Patient Care: 16 - 35 minutes (>than 50% of time spent in counselling and/or direct pt care on unit) . Coding Level of Care Code Acute Computer Support Technician for [facility] Fwd Exam Comprehensive Diagnoses Acute kidney injury N17.9 Dehydration E86.0 Encephalopathy G93.40
[2020-07-21] MEDS: metoprolol tartrate 25 mg Tablet PO (18:21)
[2020-07-21] MEDS: OLANZapine 10 mg VIAL 5 MG IM (20:45)
[2020-07-22] VITALS (51 sets, daily range): BP systolic 49–173; BP diastolic 33–102; PULSE 76–138; RESP 14–26; TEMP 36.1–37.7; O2SAT 71–100
--- NOTE | 2020-07-22 01:04 | XRR_ITS ---
PROCEDURE INFORMATION: Exam: XR Chest, 1 View Exam date and time: 07/22/2020 2:54 AM Age: 70 years old Clinical indication: Shortness of breath; Patient HX: Resp distress; Additional info: Doctor ordered TECHNIQUE: Imaging protocol: XR of the chest Views: 1 view. COMPARISON: CR XR chest 1V portable [id number] 07/18/2020 5:56 PM FINDINGS: Lungs: Lungs are clear. Pleural space: There is no pleural effusion or pneumothorax. Heart/Mediastinum: Moderate cardiac enlargement. Bones/joints: Bones are unremarkable. XR/XR chest 1V portable [id number] IMPRESSION: No acute findings.
[2020-07-22] MEDS: ipratropium-albuterol 3 mL Neb INHALATION ×2 (01:17→13:29)
[2020-07-22] MEDS: FUROsemide 10 mg/mL SDV 4mL 40 MG IVP (01:22)
[2020-07-22 02:02] LABS: ABG PH Result 7.14 (7.35-7.45)
[2020-07-22 02:03] LABS: ABG PCO2 79.2 mmHg (35-45); Base Excess ABG -3.5 mmol/L (-2.0-2.0); HCO3 ABG 27.1 mmol/L (22-26); Oxygen Device OXYMASK; PO2 ABG 85.3 mmHg (80.0-100.0); Potassium Level - ABG 5.2 mmol/L (3.5-5.0)
[2020-07-22 02:04] LABS: Arterial Blood Gas Hematocrit 38.7 % (37-47); Blood Gas Sample Type ARTERIAL
[2020-07-22 02:05] LABS: Total Hemoglobin 12.6 g/dL (12-16)
[2020-07-22 02:18] LABS: Blood Urea Nitrogen 27 mg/dL (8-23); Calcium 9.3 mg/dL (8.5-10.5); Carbon Dioxide 27 mmol/L (22-29); Chloride 112 mmol/L (98-107); Glomerular Filtration Rate 34.5 mL/min (90-130); Glucose 156 mg/dL (65-115); Osmolality Calculated 314 mOsm/kg (285-295); Sodium 148 mmol/L (136-145)
[2020-07-22 02:30] LABS: ABG PH Result 7.25 (7.35-7.45); Arterial Blood Gas Hematocrit 38.3 % (37-47); Base Excess ABG -0.4 mmol/L (-2.0-2.0); Blood Gas Allen Test Pos; Blood Gas Sample Type Arterial; HCO3 ABG 28.1 mmol/L (22-26); Oxygen Device BIPAP; PO2 ABG 75.1 mmHg (80.0-100.0)
[2020-07-22 02:31] LABS: ABG PCO2 63.7 mmHg (35-45)
[2020-07-22 02:42] LABS: NT Pro B Type Natriuretic Pept 42811 pg/mL (0-125)
[2020-07-22 05:20] LABS: ABG PH Result 7.32 (7.35-7.45); Arterial Blood Gas Hematocrit 35.7 % (37-47); Base Excess ABG 3.2 mmol/L (-2.0-2.0); Blood Gas Sample Site Brachial, right; Blood Gas Sample Type Arterial; HCO3 ABG 30.7 mmol/L (22-26); Oxygen Device BIPAP; PO2 ABG 71.7 mmHg (80.0-100.0)
[2020-07-22 05:23] LABS: ABG PCO2 60.3 mmHg (35-45)
[2020-07-22 06:55] LABS: Blood Urea Nitrogen 26 mg/dL (8-23); Calcium 9.4 mg/dL (8.5-10.5); Carbon Dioxide 25 mmol/L (22-29); Chloride 109 mmol/L (98-107); Glomerular Filtration Rate 40.7 mL/min (90-130); Glucose 108 mg/dL (65-115); Osmolality Calculated 307 mOsm/kg (285-295); Sodium 146 mmol/L (136-145)
--- NOTE | 2020-07-22 07:17 | PC.NURSE ---
shift summary This nurse responded to pt bed alarm at shift change, pt had removed peripheral IV, and was pulling off oxygen and standing in room, pt was shaking and saying i need some help , Nurse assisted pt to the chair in room and put nasal cannula back on and asked pt what was wrong, pt responded I need something to knock me out now! pt denied any pain and said she was having anxiety. Nurse instructed pt to breath through her nose and out her mouth and sat with pt and tried to calm her. PT kept repeatedly trying to get out of chair and say she needed something to calm her down and help her sleep. Nurse contacted Dr. Junior and received orders for zyprexa 5 mg IM PRN Q6h, nurse administered meds and gave pt a snack then assisted pt back to bed. nurse rounded in an hour and pt stated she was feeling better, next hourly rounding pt was asleep, at 0030 YARDAGE CONTROL OPERATOR called nurse to room and informed nurse pt 02 was 86% nurse noticed pt was mouth breathing with the nasal cannula so nurse applied oxymask and turned pt o2 up to 4L, PT o2 continued to drop to 82% Nurse called charge nurse and RT Dari, pt continued to drop to 80% and was very lethargic and had delayed response to questioning, Dr. Junior called to come assess pt. Dr Junior responded to room at 0105 and ordered stat ABG, BNP, chest xray, IV lasix, zapata insertion, and Bipap. PT oxygen stabilized at 97% on Bipap, nurse rounded hourly, ABG results were CO2 of 79.2, ABG repeated within 1 hour, then 3 hours. Co2 showed to be dropping to 63, pt mentation improved and more responsive to staff, zapata output of 1500, continuous pulse ox in place, shift report passed to Tammy Villalta RN.
[2020-07-22 08:21] LABS: Anion Gap 16.6 (5-19); Potassium 4.6 mmol/L (3.5-5.1)
[2020-07-22] MEDS: OLANZapine 10 mg VIAL 5 MG IM (08:51)
[2020-07-22 08:59] LABS: ABG PCO2 46.6 mmHg (35-45); ABG PH Result 7.38 (7.35-7.45); Base Excess ABG 1.9 mmol/L (-2.0-2.0); Blood Gas Operator Identificat AH; Blood Gas Sample Site Brachial, left; Blood Gas Sample Type Arterial; HCO3 ABG 27.6 mmol/L (22-26); Oxygen Device BIPAP; PO2 ABG 82.1 mmHg (80.0-100.0)
--- NOTE | 2020-07-22 09:01 | PM.PN ---
Subjective Subjective: Interval history: Overnight was noted to have some increased confusion and attempted to get up out of bed despite frequent redirection, noted to be hypoxic and unable to self maintain her nasal cannula. Typewriter Assembly And Parts Inspector ordered stat labs including ABG, BiPAP which she is still on currently with FiO2 of 40%. Serial ABGs show improvement in hypercapnia though she remains confused and requiring frequent attention. We will move her closer to the nurses station and request one-on-one monitoring. Stanford catheter replaced overnight due to noted urinary retention. Did receive a dose of Lasix, IV fluids had been discontinued. She did receive a dose of Zyprexa as well. Additional dose given this morning. Had urine output of 1550 mL overnight. Per most recent ABG hypoxia has resolved and hypercapnia is steadily improving. Improved electrolytes and renal function this morning. BNP greater than 42,000 so hypoxia and hypercapnia may have been precipitated by fluid overload. We will resume diuresis. Medications: Reviewed: Yes Medication Review Details: Active Medications Generic Name Dose Route Start Last Admin Trade Name Freq PRN Reason Stop Dose Admin Acetaminophen 650 mg 07/18/20 20:24 Tylenol PO Q6H PRN Mild/Mod Pain Or Temp >/= 101 Albuterol Sulfate 2 puff 07/18/20 20:24 07/21/20 15:27 Ventolin INHALATION 2 puff Q4H.RESPIRATORY P RN Administration SHORTNESS OF JULIANA TH Albuterol/Ipratrop ium 3 ml 07/22/20 01:09 07/22/20 01:17 Duoneb INHALATION 3 ml Q4H PRN Administration SHORTNESS OF JULIANA TH Lipase/Protease/Am ylase 1 each 07/19/20 09:00 07/21/20 20:44 Zenpep PO 1 each WM&BEDTIME ANDREW Administration Apixaban 5 mg 07/19/20 09:00 07/21/20 18:21 Eliquis PO 5 mg BID ANDREW Administration Atorvastatin Calci um 40 mg 07/19/20 09:00 07/21/20 09:19 Lipitor PO 40 mg DAILY ANDREW Administration Duloxetine HCl 30 mg 07/20/20 09:00 07/21/20 09:19 Cymbalta PO 30 mg DAILY ANDREW Administration Isosorbide Mononit rate 30 mg 07/19/20 09:00 07/21/20 09:19 Imdur PO 30 mg DAILY ANDREW Administration Levothyroxine Sodi um 150 mcg 07/19/20 09:00 07/21/20 09:19 Synthroid PO 150 mcg DAILY ANDREW Administration Metoprolol Tartrat e 25 mg 07/21/20 18:00 07/21/20 18:21 Lopressor PO 25 mg BID ANDREW Administration Morphine Sulfate 2 mg 07/18/20 20:24 Morphine IVP Q4H PRN SEVERE PAIN Nitroglycerin 0.4 mg 07/18/20 20:24 Nitrostat SUBLINGUAL Q5M PRN CHEST PAIN Olanzapine 5 mg 07/21/20 19:29 07/22/20 08:51 Zyprexa IM 5 mg Q6H PRN Administration SEVERE AGITATION Ondansetron HCl 4 mg 07/18/20 20:24 Zofran IVP Q6H PRN NAUSEA AND VOMITI NG Oxycodone HCl 20 mg 07/18/20 21:02 07/20/20 15:16 Oxycodone Ir PO 20 mg QID PRN Administration severe pain Pantoprazole Sodiu m 40 mg 07/19/20 09:00 07/21/20 09:19 Protonix PO 40 mg DAILY ANDREW Administration Pregabalin 150 mg 07/20/20 09:00 07/21/20 18:21 Lyrica PO 150 mg BID ANDREW Administration insect venom Allergy (Verified 06/22/20 13:00) PASS OUT nut - unspecified Allergy (Verified 07/18/20 14:59) ALGY-Anaphylaxis Penicillins Allergy (Verified 06/22/20 12:59) ALGY-Anaphylaxis Sulfa (Sulfonamide Antibiotics) Allergy (Verified 06/22/20 12:59) Unknown guacamole Allergy (Uncoded 07/18/20 14:59) ALGY-Anaphylaxis Vitals/I&O/Wt Last Vital Signs Temp 98.3 F 07/22/20 08:00 Pulse 94 07/22/20 08:00 Resp 20 H 07/22/20 08:00 BP 158/83 07/22/20 08:00 Pulse Ox 95 07/22/20 08:00 07/21/20 07/22/20 07/22/20 22:59 06:59 14:59 Intake Total 240 / 480 Output Total 50 / 50 1550 / 1600 Balance 190 / 430 -1550 / -1120 Weight last 48 hrs Weight 75.75 kg Weight 61.054 kg Physical Exam Const: COMMON NORMALS: no acute distress and alert GENERAL APPEARANCE: cooperative and comfortable ORIENTATION/CONSCIOUSNESS: Yes awake and Yes confused OTHER: -resting in bed HENMT: COMMON NORMALS: normocephalic, atraumatic, hearing grossly normal bilaterally and moist oral mucous membranes HEAD & SCALP: normocephalic and atraumatic MOUTH: moist mucous membranes abnormal Details: parched Eye: COMMON NORMALS: Equal, round and reactive pupils present, EOMs intact bilaterally and conjunctivae normal CONJUNCTIVA: Yes conjunctivae normal PUPIL: Yes Equal, round and reactive pupils present Neck/C-Spine: COMMON NORMALS: full ROM GENERAL: Yes normal visual inspection and Yes trachea midline Resp: COMMON NORMALS: normal respiratory effort, No retractions, No use of accessory muscles and clear to auscultation bilaterally EFFORT & INSPECTION: Yes able to speak in complete sentences, Yes symmetric chest movement and No tachypneic AUSCULTATION: clear to auscultation bilaterally and crackles OTHER: -on BiPAP -diminished though equal breath sounds bilaterally Cardio: COMMON NORMALS: regular rate, regular rhythm, S1 normal heart sound present, S2 normal heart sound present and No murmurs present (Cardio) RATE: regular rate RHYTHM: regular rhythm HEART SOUNDS: S1 normal heart sound present and S2 normal heart sound present GI: COMMON NORMALS: Normal to inspection, nondistended, normoactive bowel sounds present, Soft to palpation and non-tender PALPATION: Yes Soft to palpation, No Guarding due to palpation present (GI) and No Rigid due to palpation : BLADDER/KIDNEY EXAM: Yes catheter in place Catheter type (Female): urethral Extremity: COMMON NORMALS: normal to inspection, full ROM and no clubbing, cyanosis or edema; negative for no pedal edema Neuro: COMMON NORMALS: moves all extremities, no focal motor deficits and no sensory deficits noted SENSORIUM/ORIENTATION: Yes alert and Yes Orientation impaired Psych: ATTITUDE: Yes agitated THOUGHT PROCESS: confused Skin: COMMON NORMALS: no rashes or lesions noted, no jaundice, no petechiae and no mottling GENERAL SKIN EXAM: no rashes or lesions noted Urinary Catheter Management^: Stanford: Cath Placed During This Visit: yes, but has since been removed by the nurse Reason for Continuing Indwelling Catheter: Acute Urinary Retention or Obstruction Urinary Catheter Date of Insertion: 07/22/20 Urinary Catheter Time of Insertion: 02:00 Date Urinary Catheter Removed: 07/21/20 Time Urinary Catheter Discontinued: 18:30 Data : 07/19/20 04:02 07/22/20 05:57 A&P Assessment and plan (1) Acute kidney injury: -noted renal impairment superimposed on CKD stage 2 -likely secondary to GI losses and diminished oral intake -baseline Cr < 1 -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 AG closed, K wnl, improved lytes -continue to monitor vital signs -renal function improving, continue to monitor -in light of concern for possible fluid overload, will resume diuresis Status: Acute (2) Dehydration: -with noted diarrhea, now resolved -C.difficile negative, enteric bacterial panel negative -off IVF hydration Status: Acute (3) Encephalopathy: -is alert but seems somewhat disoriented -strict fall precautions, re-orient as needed -could be due to acute renal impairment to some degree. Overnight, change in mental status precipitated by hypercapnia and hypoxia secondary to fluid overload. Improving with BiPAP use -she appears to have an unsteady gait at baseline -from review of medical record has a somewhat complicated neurological history including prior PRES and CVA with some noted episodes of syncope, tremors. Ongoing w/u including EEG by Neurology, scheduled for sleep-deprived EEG. Has been following up with cardiology as well. -requires 1:1 monitoring, moved closer to nurses station Status: Acute Additional A&P Information -clinical suspicion for possible COVID-19 infection given some respiratory symptoms, GI symptoms; rapid testing negative, PCR negative, can d/c isolation precautions. Uremarkable CXR, negative influenza. Noted elevation of d-dimer, CRP -Chronic diastolic CHF; Echo (03/2020): EF=45-50%, G1DD, mild global hypokinesis, trace MR, trace [place], trace TR, trace [place]. Diuretics on hold due to renal impairment -hx of CVA with noted multiple areas of infarct on MRI (03/2020); on AC with Eliquis -oxygen dependent COPD, 2 L baseline requirement qhs -Chronic pancreatitis; on pancreatic enzymes -Chronic pain; on opiates; cautious use; follows up with pain management -Chronic smoker, 1 PPD -hx of hyperlipidemia -Hypothyroidism; on levothyroxine -hx of CAD s/p stenting -cardiac diet as tolerated -GI ppx with PPI -DVT ppx not needed as on Eliquis -Dispo: lives alone and due to ongoing episodes of syncope, may not be safe to return home on her own. Seems open to SNF placement but has done well with therapy and HH recommended. -Code status: FULL code Attestations Medical Necessity Statement*: Patient requires hospitalization for continued management of acute hypoxic and hypercapnic respiratory failure with associated change in mental status, currently requiring BiPAP support and one-on-one monitoring. Time Spent in Patient Care: 16 - 35 minutes (>than 50% of time spent in counselling and/or direct pt care on unit). Coding Level of Care Code Acute Wash And Greaser for [facility] Diagnoses Acute kidney injury N17.9 Dehydration E86.0 Encephalopathy G93.40
--- NOTE | 2020-07-22 09:43 | PC.NURSE ---
1:1 Sitter This nurse heard bipap alarm and went into the room to assess the pt. Pt had pulled off bipap mask and was rolling around in bed. RT came to assist with bipap. This nurse gave PRN dose of [address] Duenas notified and 1:1 sitter requested. Pt was moved closer to nurses station. 1:1 sitter in room with pt at this time.
[2020-07-22] MEDS: pantoprazole DR 40 mg Tablet PO (10:53)
[2020-07-22] MEDS: apixaban 5 mg Tablet PO (10:53)
[2020-07-22] MEDS: pregabalin 150 mg Capsule PO (10:53)
[2020-07-22] MEDS: metoprolol tartrate 25 mg Tablet PO (10:53)
[2020-07-22] MEDS: levothyroxine 150 mcg Tablet PO (10:54)
[2020-07-22] MEDS: bumetanide 1 mg Tablet PO (10:54)
[2020-07-22] MEDS: atorvastatin 40 mg Tablet PO (10:54)
[2020-07-22] MEDS: duloxetine 30 mg Capsule PO (10:54)
[2020-07-22] MEDS: isosorbide mononitrate ER 30 mg Tablet PO (10:54)
[2020-07-22] MEDS: morphine 4 mg/mL SDV 1 mL 2 MG IVP (11:04)
[2020-07-22 11:57] LABS: Glucose Point of Care 127 mg/dL (70-110)
[2020-07-22] MEDS: LORazepam 2 mg/mL INJ 1 mL IVP (12:31)
[2020-07-22] MEDS: haloperidol inj 5 mg/mL INJ 1 mL IM (12:32)
[2020-07-22 13:09] LABS: Basophils # 0.1 10^3/uL (0.0-0.1); Basophils % 0.5 %; Eosinophils # 0.9 10^3/uL (0.0-0.8); Eosinophils % 8.4 %; Hematocrit 41.5 % (37.0-47.0); Hemoglobin 12.8 g/dL (11.5-15.3); Lymphocytes # 1.4 10^3/uL (0.8-4.8); Lymphocytes % 12.6 %; Mean Corpuscular HGB Conc 30.8 g/dL (30.0-36.0); Mean Corpuscular Hemoglobin 28.6 pg (28.0-34.0); Mean Corpuscular Volume 92.8 fL (81-99); Mean Platelet Volume 13.1 fL (7.4-10.4); Monocytes # 0.5 10^3/uL (0.2-0.9); Monocytes % 4.5 %; Neutrophils # 7.99 10^3/uL (1.8-7.7); Neutrophils % 73.3 %; Nucleated Red Blood Cells % 0 %; Platelet Count 112 10^3/cmm (130-400); Red Blood Count 4.47 10^6/uL (4.1-5.3); Red Cell Distribution Width 17.1 % (12.1-15.1); White Blood Count 10.9 10^3/uL (4.0-10.0)
[2020-07-22 13:22] LABS: INR 1.72 (0.8-1.2)
[2020-07-22 13:23] LABS: Partial Thromboplastin Time 36.2 SECONDS (23.9-36.7)
--- NOTE | 2020-07-22 13:26 | PC.NURSE ---
Nurse notified of pt's vitals- BP 173/100, HR 140s. Pt seemed to be very agitated and restless- pulling at oxygen, attempting to get out of bed. Pt was diaphoretic with a change in skin color. Dr. Duenas notified and at bedside to assess pt.
--- NOTE | 2020-07-22 13:43 | PC.NURSE ---
Pt moved to ICU. Bedside report given to AMY Gongora. Update called to daughter, Bozena, at 1343.
[2020-07-22 13:49] LABS: Troponin T (5th) Once 220 ng/L (0-10)
[2020-07-22 13:51] LABS: ABG PCO2 77.7 mmHg (35-45); Arterial Blood Gas Hematocrit 40.4 % (37-47); Base Excess ABG 0.1 mmol/L (-2.0-2.0); Blood Gas Allen Test Pos; Blood Gas Sample Site Brachial, left; Blood Gas Sample Type Arterial; Carboxyhemoglobin 1.3 %THgb (0.4-20.1); HCO3 ABG 30.2 mmol/L (22-26); HGB O2 Sat 88.8 % (95-100); Ionized Calcium Level - ABG 1.3 mmol/L (1.1-1.4); Methemoglobin 0.8 % (0.4-1.5); Oxygen Saturation ABG 90.7; PO2 ABG 71.6 mmHg (80.0-100.0); Total Hemoglobin 13.2 g/dL (12-16)
[2020-07-22 13:52] LABS: Oxygen Device BIPAP
--- NOTE | 2020-07-22 14:15 | XRR_ITS ---
PROCEDURE INFORMATION: Exam: XR Chest, 1 View Exam date and time: 07/22/2020 2:19 PM Age: 70 years old Clinical indication: Device placement; Ett placement (vent status); Additional info: S/P intubation TECHNIQUE: Imaging protocol: XR of the chest Views: 1 view. COMPARISON: CR XR chest 1V portable [id number] 07/22/2020 2:49 AM FINDINGS: Tubes, catheters and devices: An endotracheal tube is present with its tip approximately 18 mm above the [place]. A nasogastric tube extends down to the stomach but the tip is only about 4 cm below the diaphragm. Further advancement into the stomach is advised. Lungs: The lungs are clear. No pneumonia is seen. Pleural space: Unremarkable. No pleural effusion. No pneumothorax. Heart/Mediastinum: The heart is normal for the AP projection. Bones/joints: Unremarkable. XR/XR chest 1V portable [id number] IMPRESSION: 1. The tip of the endotracheal tube is about 18 mm above the [place]. 2. The nasogastric tube is only about 4 cm below the diaphragm and further advancement of the stomach is advised. 3. The lungs are clear.
--- NOTE | 2020-07-22 14:15 | ECG_ITS ---
[facility] Test Date: 2020-07-22 Pat Name: [employer] Department: Room: [facility] Gender: Female Slimer: : 1950 Requested By: Elissa Duenas Order Number: [id number] Melissa MD: Cat Lowery M.D. Measurements Intervals [place] Rate: 86 P: 44 [place]: 125 QRS: -56 QRSD: 135 T: 164 QT: 438 QTc: 526 Interpretive Statements SINUS RHYTHM MARKED LEFT AXIS DEVIATION [QRS AXIS < -30] LEFT BUNDLE BRANCH BLOCK Compared to ECG 04/06/2020 23:14:26 Ventricular premature complex(es) no longer present Electronically Signed On 07-23-2020 9:25:03 PROCUREMENT PROFESSIONAL by Cat Lowery M.D. [id number]
[2020-07-22 14:17] LABS: ABG PH Result 7.26 (7.35-7.45); Alveolar-Arterial Oxygen Gradi 40.7 mmHg (5-10); Arterial Blood Gas Hematocrit 36.8 % (37-47); Base Excess ABG 1.1 mmol/L (-2.0-2.0); Blood Gas Allen Test Pos; Blood Gas Operator Identificat GD; Blood Gas Sample Site Radial, left; Blood Gas Sample Type Arterial; HCO3 ABG 29.6 mmol/L (22-26); HGB O2 Sat 98.4 % (95-100); Ionized Calcium Level - ABG 1.3 mmol/L (1.1-1.4); Methemoglobin 0.8 % (0.4-1.5); Oxygen Device VENT; Oxygen Saturation ABG > 100.0; Potassium Level - ABG 4.5 mmol/L (3.5-5.0)
[2020-07-22 14:18] LABS: ABG PCO2 66.1 mmHg (35-45)
[2020-07-22 14:29] LABS: D Dimer 1.58 ug/mIFEU (0-0.59)
[2020-07-22] MEDS: heparin 5,000 unit/mL INJ 1 mL 5000 UNIT SUBCUT (14:50)
[2020-07-22] MEDS: propofol 1,000 MG/100 ML INJ 4.5 MG IV (14:51)
[2020-07-22] MEDS: sodium chloride 0.9% 250 ML IV (14:51)
[2020-07-22 14:59] LABS: Alanine Aminotransferase 9 U/L (0-33); Albumin Level 3.2 g/dL (3.5-5.2); Alkaline Phosphatase 77 IU/L (35-105); Blood Urea Nitrogen 28 mg/dL (8-23); Calcium 9.2 mg/dL (8.5-10.5); Carbon Dioxide 26 mmol/L (22-29); Chloride 109 mmol/L (98-107); Globulin 2.5 g/dL (1.3-4.6); Glomerular Filtration Rate 37.4 mL/min (90-130); Glucose 129 mg/dL (65-115); Osmolality Calculated 309 mOsm/kg (285-295); Phosphorus 4.6 mg/dL (2.5-4.5); Sodium 146 mmol/L (136-145); Total Bilirubin 0.7 mg/dL (0.15-1.2); Total Protein 5.7 g/dL (6.6-8.7)
[2020-07-22 15:01] LABS: Lactate (Lactic Acid level) 1.8 mmol/L (0.5-2.2)
[2020-07-22 15:20] LABS: Anion Gap 15.8 (5-19); Aspartate Amino Transferase 18 U/L (0-32); Potassium 4.8 mmol/L (3.5-5.1)
[2020-07-22 15:22] LABS: Magnesium 0.9 mg/dL (1.7-2.3)
--- NOTE | 2020-07-22 15:29 | CTR_ITS ---
PROCEDURE INFORMATION: Exam: CT Angiography Chest With Contrast Exam date and time: 07/22/2020 5:46 PM Age: 70 years old Clinical indication: Shortness of breath; Patient HX: Elevated d-dimer and resp failure; Additional info: Elevated d dimer, respiratory failure TECHNIQUE: Imaging protocol: Computed tomographic angiography of the chest with intravenous contrast. 3D rendering (Not supervised by radiologist): MIP and/or 3D reconstructed images were created by the technologist. Radiation optimization: All CT scans at this facility use at least one of these dose optimization techniques: automated exposure control; mA and/or kV adjustment per patient size (includes targeted exams where dose is matched to clinical indication); or iterative reconstruction. Contrast material: VISI 320; Contrast volume: 65 ml; Contrast route: INTRAVENOUS (IV); COMPARISON: CT angio chest PE protcl [id number] 04/07/2020 3:18 AM RADIATION DOSE METRICS: Total DLP (mGy-cm): 614.15 FINDINGS: Tubes, catheters and devices: NG tube with tip in the mid stomach. Pulmonary arteries: Normal. No pulmonary emboli. Aorta: Unremarkable. No aortic aneurysm. No aortic dissection. Veins: Left IJ central line with tip in the distal SVC. 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 Lungs: Emphysema. Mild dependent atelectasis in the right lower lobe. Focal ground-glass opacity in the medial right upper lobe. Pleural space: Unremarkable. No pneumothorax. No pleural effusion. Heart: Unremarkable. No cardiomegaly. No pericardial effusion. Mediastinal space: Intubation with tip in the midthoracic trachea. Lymph nodes: Prominent mediastinal and bilateral hilar lymph nodes are most likely reactive. Spleen: Small splenule. Bones/joints: Unremarkable. No acute fracture. Soft tissues: Unremarkable. CT/CT angio chest PE protcl [id number] IMPRESSION: 1. No evidence for pulmonary embolus. 2. Small focal ground-glass opacity in the medial right upper lobe could represent a focus of pneumonia. Radiation Dose CTDIVOL = (mGy): DLP = 614.15 (mGy-cm)
--- NOTE | 2020-07-22 16:01 | XRR_ITS ---
PROCEDURE INFORMATION: Exam: XR Chest, 1 View Exam date and time: 07/22/2020 4:15 PM Age: 70 years old Clinical indication: Other vascular access device placement or adjustment; Central line, non-tunnelled; Additional info: Central line placement confirmation TECHNIQUE: Imaging protocol: XR of the chest Views: 1 view. COMPARISON: CR XR chest 1V portable [id number] 07/22/2020 1:25 PM FINDINGS: Tubes, catheters and devices: Intubation with tip 3.5 cm above the [place]. Left IJ central line with tip over the mid SVC. NG tube extends into the stomach, off the field of view. Lungs: Mild atelectasis or scar in the left lung base. The right lung is clear. Pleural space: Unremarkable. No pleural effusion. No pneumothorax. Heart/Mediastinum: Unremarkable. No cardiomegaly. Bones/joints: Unremarkable. XR/XR chest 1V portable [id number] IMPRESSION: 1. Central line placement without pneumothorax. 2. No acute findings.
--- NOTE | 2020-07-22 16:19 | W.ED.GENADLT ---
HPI - General Adult General: Chief complaint: General Medical Stated complaint: syncope, LIM, diarrhea Time Seen by Provider: 07/18/20 14:46 History of Present Illness: Relieving factors: none Exacerbating factors: none Treatments prior to arrival: none PFSH ED PFSH: Medical History (Updated 07/22/20 @ 10:01 by Ancelmo Llamas DO) Abnormal findings on esophagogastroduodenoscopy (EGD) Gastritis/GERD 2018 Arthralgia of cervical spine Back Pain Cervical disc disorder with myelopathy, mid-cervical region, unspecified level Cervical spondylosis without myelopathy Chronic pancreatitis COPD (chronic obstructive pulmonary disease) -oxygen dependent, 2 L at baseline Discitis Encounter for long-term opiate analgesic use Heart failure with preserved ejection fraction Left bundle branch block Lumbar postlaminectomy syndrome Myocardial infarct PRES (posterior reversible encephalopathy syndrome) -on 02/2018 Renal cyst Smoker Thrombocytopenia Thought to be drug-induced has follow-up with Dr. 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 History of lumbar surgery Hx of colonoscopy Sigmoid diverticulosis Stented coronary artery Family History Other Diabetes Hypertension Social History (Updated 07/18/20 @ 19:17 by Elissa Duenas MD) Smoking and tobacco status: current every day smoker cigarettes [ Other cigarette details: 0.5 TO 1 PK PER DAY ] Alcohol intake: never Lives independently: Yes Housing: House History of recent travel: No Procedures Central Line Placement Left IJ: Time Out Performed: No Patient Placed on Monitor/Pulse Ox: Yes MD Prep: mask, gown and gloves Central Line Prep: Chlorhexidine scrub and sterile drapes applied Local Anesthetic: lidocaine 1% Ultrasound Used for Placement: Yes Central Line Lumen Inserted: triple Post Procedure: sutured in place, good blood return, all ports aspirated, flushed, capped and sterile dressing applied Post Procedure X-Ray: tip of catheter in good position Patient Tolerated Procedure: well and no complications Complications: none Additional Comments: tolerated well Intubation Time out performed: No sedative: Etomidate Mg Given: 20 paralytic: Succinylcholine Laryngoscope: Kelvin (4) ET Tube Size: 8 ET Tube Uncuffed: No Tube Secured Depth (cm): 24 Tube Secured Location: lips Tube Placement Confirmation: visualized tube passing through cords, equal breath sounds bilaterally, no breath sounds over epigastrium and confirmation by capnometry Patient Tolerated Procedure: well and no complications Intubation Complications: none Course Vital Signs: Vital signs: Vital Signs Temperature 96.9 F L 07/22/20 12:00 Pulse Rate 90 07/22/20 15:15 Respiratory Rate 16 07/22/20 16:16 Blood Pressure 49/33 07/22/20 15:15 Pulse Oximetry 97 07/22/20 14:45 MDM - General Adult MDM Narrative: Medical decision making narrative: Consulted by the hospitalist team for intubation as well as central line placement. The intubation happened on the medical surgical floor this afternoon, as the patient became less responsive. There were no complications. She was moved to the ICU, shortly thereafter, we were called from the emergency department to place a central line. Central line placed in the left IJ without complication. Lab Data: Labs: Lab Results 07/18/20 07/18/20 07/18/20 Range/Units 15:30 15:31 15:31 WBC 9.7 (4.0-10.0) 10^3/ uL RBC 4.98 (4.1-5.3) 10^6/u L Hgb 14.2 (11.5-15.3) g/dL Hct 44.0 (37.0-47.0) % MCV 88.4 (81-99) fL MCH 28.5 (28.0-34.0) pg MCHC 32.3 (30.0-36.0) g/dL RDW 16.6 H (12.1-15.1) % Plt Count 145 (130-400) 10^3/c mm MPV 12.9 H (7.4-10.4) fL Neut % (Auto) 69.8 % Lymph % (Auto) 14.0 % [place] % (Auto) 4.9 % Eos % (Auto) 10.7 % Baso % (Auto) 0.4 % Neut # (Auto) 6.75 (1.8-7.7) 10^3/u L Lymph # (Auto) 1.4 (0.8-4.8) 10^3/u L [place] # (Auto) 0.5 (0.2-0.9) 10^3/u L Eos # (Auto) 1.0 H (0.0-0.8) 10^3/u L Baso # (Auto) 0.0 (0.0-0.1) 10^3/u L Nucleated RBC % (a uto) 0 % Nucleated RBCs # 0.0 /100WBC Fibrinogen Cancelled D-Dimer Cancelled Specimen Type Arterial Sample Site Brachial, right ABG pH 7.30 L (7.35-7.45) ABG pCO2 58.2 H (35-45) mmHg ABG pO2 103.0 H (80.0-100.0) mmH g ABG HCO3 28.8 H (22-26) mmol/L ABG Base Excess 1.1 (-2.0-2.0) mmol/ L Patel Test N/a Hematocrit 43.2 (37-47) % O2 Delivery Device Nc O2 Liters/Min 2.0 % FiO2 28.0 % Timber Bucker ID Gd Sodium Potassium Chloride Carbon Dioxide Anion Gap BUN Creatinine GFR Calculation Glucose Calculated Osmolal ity Lactic Acid (0.5-2.2) mmol/L Calcium Total Bilirubin AST ALT Alkaline Phosphata se C-Reactive Protein Total Protein Albumin Globulin SARS-CoV-2 Ag (Rap id) (Negative) 07/18/20 07/18/20 07/18/20 Range/Units 15:31 15:31 16:10 WBC (4.0-10.0) 10^3/ uL RBC (4.1-5.3) 10^6/u L Hgb (11.5-15.3) g/dL Hct (37.0-47.0) % MCV (81-99) fL MCH (28.0-34.0) pg MCHC (30.0-36.0) g/dL RDW (12.1-15.1) % Plt Count (130-400) 10^3/c mm MPV (7.4-10.4) fL Neut % (Auto) % Lymph % (Auto) % [place] % (Auto) % Eos % (Auto) % Baso % (Auto) % Neut # (Auto) (1.8-7.7) 10^3/u L Lymph # (Auto) (0.8-4.8) 10^3/u L [place] # (Auto) (0.2-0.9) 10^3/u L Eos # (Auto) (0.0-0.8) 10^3/u L Baso # (Auto) (0.0-0.1) 10^3/u L Nucleated RBC % (a uto) % Nucleated RBCs # /100WBC Fibrinogen 401 D-Dimer 0.73 H Specimen Type Sample Site ABG pH (7.35-7.45) ABG pCO2 (35-45) mmHg ABG pO2 (80.0-100.0) mmH g ABG HCO3 (22-26) mmol/L ABG Base Excess (-2.0-2.0) mmol/ L Patel Test Hematocrit (37-47) % O2 Delivery Device O2 Liters/Min % FiO2 % Timber Bucker ID Sodium Cancelled Potassium Cancelled Chloride Cancelled Carbon Dioxide Cancelled Anion Gap Cancelled BUN Cancelled Creatinine Cancelled GFR Calculation Cancelled Glucose Cancelled Calculated Osmolal ity Cancelled Lactic Acid 1.2 (0.5-2.2) mmol/L Calcium Cancelled Total Bilirubin Cancelled AST Cancelled ALT Cancelled Alkaline Phosphata se Cancelled C-Reactive Protein Cancelled Total Protein Cancelled Albumin Cancelled Globulin Cancelled SARS-CoV-2 Ag (Rap id) (Negative) 07/18/20 07/18/20 Range/Units 16:10 17:01 WBC (4.0-10.0) 10^3/ uL RBC (4.1-5.3) 10^6/u L Hgb (11.5-15.3) g/dL Hct (37.0-47.0) % MCV (81-99) fL MCH (28.0-34.0) pg MCHC (30.0-36.0) g/dL RDW (12.1-15.1) % Plt Count (130-400) 10^3/c mm MPV (7.4-10.4) fL Neut % (Auto) % Lymph % (Auto) % [place] % (Auto) % Eos % (Auto) % Baso % (Auto) % Neut # (Auto) (1.8-7.7) 10^3/u L Lymph # (Auto) (0.8-4.8) 10^3/u L [place] # (Auto) (0.2-0.9) 10^3/u L Eos # (Auto) (0.0-0.8) 10^3/u L Baso # (Auto) (0.0-0.1) 10^3/u L Nucleated RBC % (a uto) % Nucleated RBCs # /100WBC Fibrinogen D-Dimer Specimen Type Sample Site ABG pH (7.35-7.45) ABG pCO2 (35-45) mmHg ABG pO2 (80.0-100.0) mmH g ABG HCO3 (22-26) mmol/L ABG Base Excess (-2.0-2.0) mmol/ L Patel Test Hematocrit (37-47) % O2 Delivery Device O2 Liters/Min % FiO2 % Timber Bucker ID Sodium 135 L Potassium 3.2 L Chloride 89 L Carbon Dioxide 30 H Anion Gap 19.2 H BUN 62 H Creatinine 4.5 H GFR Calculation 9.7 L Glucose 119 H Calculated Osmolal ity 299 H Lactic Acid (0.5-2.2) mmol/L Calcium 7.4 L Total Bilirubin 0.4 AST 11 ALT 6 Alkaline Phosphata se 100 C-Reactive Protein 80.7 H Total Protein 5.8 L Albumin 3.4 L Globulin 2.4 SARS-CoV-2 Ag (Rap id) Negative (Negative) Discharge Plan Discharge Patient Disposition: Admitted As Inpatient Admit Provider: Elissa Duenas Clinical Impression: Acute kidney injury, Dehydration, Encephalopathy Condition: Stable Referrals: [facility] ([facility]) [Outside] Discharge Date/Time: 07/18/20 20:10 Coding Level of Care Code ED Single Fold Machine Operator for Brandie Blank
--- NOTE | 2020-07-22 16:48 | PC.NURSE ---
1300-- RECEIVED PT FROM MED SURG S/P INTUBATION FOR RESP FAILURE, PERSONAL BELONGINGS AT BEDSIDE. LABS DRAWN FROM RIGHT FOOT PIID. SEVERAL ATTEMPTS MADE TO OBTAIN ADDITIONAL IV ACCESS WITHOUT SUCCESS. DR MENCHACA AT BEDSIDE, CENTRAL LINE PLACED BY DR RODAS TO LEFT INTERNAL JUGULAR VEIN. 1620-JEREMY (DTR) HERE TO VISIT. UPDATED ON PT, CONSENT SIGNED FOR CENTRAL LINE PLACEMENT.
[2020-07-22] MEDS: levofloxacin-dextrose 5 % 750 MG/150 ML PREMIX 100 MG IV (16:53)
[2020-07-22 18:01] LABS: ABG PCO2 49.9 mmHg (35-45); ABG PH Result 7.37 (7.35-7.45); Alveolar-Arterial Oxygen Gradi 11.8 mmHg (5-10); Arterial Blood Gas Hematocrit 35.5 % (37-47); Base Excess ABG 2.8 mmol/L (-2.0-2.0); Blood Gas Allen Test Pos; Blood Gas Operator Identificat GD; Blood Gas Sample Site Radial, left; Blood Gas Sample Type Arterial; Carboxyhemoglobin 1.5 %THgb (0.4-20.1); HCO3 ABG 28.9 mmol/L (22-26); HGB O2 Sat 90.7 % (95-100); Ionized Calcium Level - ABG 1.2 mmol/L (1.1-1.4); Methemoglobin 0.7 % (0.4-1.5); Oxygen Device VENT; Oxygen Saturation ABG 92.7; PO2 ABG 62.8 mmHg (80.0-100.0); Potassium Level - ABG 4.2 mmol/L (3.5-5.0); Total Hemoglobin 11.6 g/dL (12-16)
[2020-07-22] MEDS: iodixanol 320 mg/mL 100mL Btl IV (18:30)
[2020-07-22] MEDS: magnesium sulfate premix 2 GM/50 ML PIGGYBACK IV (19:33)
[2020-07-22] MEDS: propofol 1,000 MG/100 ML INJ 11.4 MG IV (19:33)
--- NOTE | 2020-07-22 20:11 | PC.NURSE ---
DANIELLE GOMEZ DONE USING BOLUS. 250ML INFUSED BY PRESSURE BAG THROUGH LEFT IJ. SVI DELTA 7.3, NOT FLUID RESPONSIVE. DR MENCHACA NOTIFIED.
--- NOTE | 2020-07-22 20:57 | PC.NURSE ---
Levophed at 1900 patient had levophed running at 3mcg/min. During titration on NOV, noticed bag of medication had not been scanned. Unsure of start time. Medication scanned at this time time and titrated to 2mcg/min.
[2020-07-23] VITALS (38 sets, daily range): BP systolic 95–159; BP diastolic 50–98; PULSE 73–157; RESP 14–21; TEMP 36.9–37.5; O2SAT 87–100
--- NOTE | 2020-07-23 03:00 | ECG_ITS ---
[facility] Test Date: 2020-07-23 Pat Name: Li Power Department: Room: [facility] Gender: Female Stitch Wheeler: : 1950 Requested By: Papa Junior Order Number: [id number] Melissa MD: Cat Lowery M.D. Measurements Intervals [place] Rate: 140 P: NV: -1 QRS: -58 QRSD: 132 T: 151 QT: 344 QTc: 525 Interpretive Statements ATRIAL FLUTTER/TACHYCARDIA WITH RAPID VENTRICULAR RESPONSE MARKED LEFT AXIS DEVIATION [QRS AXIS < -30] INTRAVENTRICULAR CONDUCTION DELAY [130+ ms QRS DURATION] POSSIBLE ANTERIOR MYOCARDIAL INFARCTION, OF INDETERMINATE AGE Compared to ECG 07/22/2020 14:36:46 Myocardial infarct finding now present Sinus rhythm no longer present Electronically Signed On 07-24-2020 18:50:10 ELECTRICAL ENGINEER by Cat Lowery M.D. [id number] f
--- NOTE | 2020-07-23 03:02 | PC.NURSE ---
Ekg changes Nurse at bedside, observed change in bedside electronics repair technician. Depressed T wave. Pt went into a fib with rates 120's-150's. EKG preformed showing a-flutter with RVR. Notified Dr. Junior at this time and received order for cardizem drip.
[2020-07-23] MEDS: heparin 5,000 unit/mL INJ 1 mL 5000 UNIT SUBCUT ×3 (03:06→20:54)
--- NOTE | 2020-07-23 03:22 | PC.PHAR ---
Renal dosing of Levaquin 750mg q24h changed to q48h for crcl for 39.16
[2020-07-23 03:43] LABS: ABG PCO2 44.9 mmHg (35-45); ABG PH Result 7.39 (7.35-7.45); Arterial Blood Gas Hematocrit 37.4 % (37-47); Base Excess ABG 1.8 mmol/L (-2.0-2.0); Blood Gas Sample Site Brachial, right; Blood Gas Sample Type Arterial; HCO3 ABG 27.2 mmol/L (22-26); Oxygen Device VENT; PO2 ABG 88.5 mmHg (80.0-100.0)
--- NOTE | 2020-07-23 03:45 | PC.NURSE ---
Sustained tachycardia Notified Dr. Junior at this time for HR sustaining 150-170 in atrial flutter with max dose Cardizem at 15mg/hr. BP 133/71. Pulses palpable throughout, skin is warm. Cheetah Starling monitor placed on patient, cardiac index 2.7. Pt restless with her feet at this time which is new. Nurse concerned about potential chest pain. Pt does not follow commands. Morning labs and ABG drawn early at this time. Dr. Junior notified of this episode. After reviewing labs troponin was elevated yesterday, technical writer requested additional trop level. Dr. Junior gave verbal orders for 5mg Metoprolol push Q5min for HR sustaining >150. Clarified physician with Cardizem running at 15mg. Orders were received to give dose now.
[2020-07-23 03:46] LABS: Basophils % 0.5 %; Eosinophils # 0.6 10^3/uL (0.0-0.8); Eosinophils % 7.4 %; Hematocrit 36.8 % (37.0-47.0); Hemoglobin 11.6 g/dL (11.5-15.3); Lymphocytes # 1.9 10^3/uL (0.8-4.8); Lymphocytes % 22.3 %; Mean Corpuscular HGB Conc 31.5 g/dL (30.0-36.0); Mean Corpuscular Hemoglobin 29.1 pg (28.0-34.0); Mean Corpuscular Volume 92.2 fL (81-99); Monocytes # 0.6 10^3/uL (0.2-0.9); Neutrophils # 5.17 10^3/uL (1.8-7.7); Neutrophils % 62.4 %; Nucleated Red Blood Cells % 0 %; Platelet Count 101 10^3/cmm (130-400); Red Blood Count 3.99 10^6/uL (4.1-5.3); White Blood Count 8.3 10^3/uL (4.0-10.0)
--- NOTE | 2020-07-23 04:02 | USCV_ITS ---
Li Power Age: 70 Gender: F : 1950 Exam Date: 07/23/2020 12:50 Ordering Phys: Papa Junior MD Technologist: Jyotsna Ayala Exam Location: [facility] Indication: SOB BP: 105 / 75 HR: 80 Rhythm: Sinus Technical Quality: Suboptimal MEASUREMENTS (Male / Female) Normal Values 2D ECHO LV Diastolic Diameter PLAX 4.0 cm 4.2 - 5.9 / 3.9 - 5.3 cm LV Systolic Diameter PLAX 3.0 cm LV Chamber Size 4.0 cm IVS Diastolic Thickness 2.2 cm 0.6 - 1.0 / 0.6 - 0.9 cm IVS Systolic Thickness 1.9 cm LVPW Diastolic Thickness 1.3 cm 0.6 - 1.0 / 0.6 - 0.9 cm LVPW Systolic Thickness 1.9 cm RV Chamber Size 1.7 cm LVOT Diameter 1.8 cm LV Ejection Fraction 2D Teich 50.3 % LV Ejection Fraction MOD 2C 24.9 % LV Ejection Fraction 2C AL 22.7 % LA Diameter 3.2 cm LA Width 2.3 cm LA Height 4.2 cm RA Width 1.8 cm RA Height 3.9 cm Aorta at Sinotubular Diameter 2.9 cm M-MODE LV Diastolic Diameter MM 4.7 cm 4.2 - 5.9 / 3.9 - 5.3 cm LV Systolic Diameter MM 3.9 cm LV Ejection Fraction MM Teich 35.3 % IVS Diastolic Thickness MM 1.5 cm 0.6 - 1.0 / 0.6 - 0.9 cm IVS Systolic Thickness MM 1.2 cm LVPW Diastolic Thickness MM 1.6 cm 0.6 - 1.0 / 0.6 - 0.9 cm LVPW Systolic Thickness MM 2.2 cm Aortic Annulus Diameter 3.5 cm LA Ao Ratio MM 1.0 MV E Point Septal Separation 0.7 cm DOPPLER AV Peak Velocity 153.0 cm/s LVOT Peak Velocity 95.0 cm/s AV Area Cont Eq vti 1.5 cm squared AV Area Cont Eq pk 1.7 cm squared MV Area PHT 3.9 cm squared Mitral E to A Ratio 0.8 MV E' Velocity 29.0 cm/s Mitral E to MV E' Ratio 13.0 Mitral E to LV E' Lateral Ratio 10.9 Mitral E to LV E' Septal Ratio 16.2 TR Peak Velocity 203.0 cm/s TR Peak Gradient 16.5 mmHg TV Peak E Velocity 39.0 cm/s Right Atrial Pressure 15.0 mmHg Pulmonary Artery Systolic Pressu 31.5 mmHg PV Peak Velocity 95.0 cm/s RV Acceleration Time 0.1 s RV Ejection Time 0.2 s RV AcT/ET 0.3 FINDINGS Left Ventricle Normal left ventricular cavity size. Increased left ventricular wall thickness. Moderate concentric left ventricular hypertrophy. Midly decreased left ventricular systolic function. Left ventricular ejection fraction is estimated at 50-55%. No regional wall motion abnormalities. Grade II diastolic dysfunction, moderately elevated filling pressures. Abnormal septal motion consistent with conduction abnormality. Right Ventricle Normal right ventricular size and systolic function. Right ventricular systolic pressure 31.5 mmHg. Right Atrium Normal right atrial size. Right atrial pressure estimated at 8 mm Hg. Left Atrium Normal left atrial size. Mitral Valve Mildly thickened mitral valve. No mitral valve stenosis. Trace- mild mitral valve regurgitation. Aortic Valve Mildly thickened trilaeflet aortic valve. No aortic valve stenosis. Trace aortic valve regurgitation. Tricuspid Valve Structurally normal tricuspid valve. No tricuspid valve stenosis. Mild tricuspid valve regurgitation. Pulmonic Valve Pulmonic valve not well visualized. Pericardium No pericardial effusion. Prominent epicardial fat. Aorta Normal size aortic root. Normal sized inferior vena cava. CONCLUSIONS 1. Normal left ventricular cavity size. Moderate concentric left ventricular hypertrophy. Midly decreased left ventricular systolic function. Left ventricular ejection fraction is estimated at 50%. No regional wall motion abnormalities. Grade II diastolic dysfunction, moderately elevated filling pressures. 2. Mild tricuspid valve regurgitation. 3. Pulmonary artery pressure estimated at 31mm Hg. 4. When compared to previous echocardiogram dated 04/05/20, there may not have been any significant change. Cat Lowery MD (Electronically Signed) Final Date: 23 July 2020 22:43 S
[2020-07-23] MEDS: metoprolol tartrate 1 mg/1 mL SDV 5 mL 5 MG IV (04:03)
[2020-07-23 04:06] LABS: Alanine Aminotransferase 8 U/L (0-33); Albumin Level 3.2 g/dL (3.5-5.2); Alkaline Phosphatase 77 IU/L (35-105); Anion Gap 13.1 (5-19); Aspartate Amino Transferase 16 U/L (0-32); Blood Urea Nitrogen 31 mg/dL (8-23); Carbon Dioxide 29 mmol/L (22-29); Chloride 107 mmol/L (98-107); Globulin 2.1 g/dL (1.3-4.6); Glomerular Filtration Rate 34.5 mL/min (90-130); Glucose 98 mg/dL (65-115); Osmolality Calculated 307 mOsm/kg (285-295); Potassium 4.1 mmol/L (3.5-5.1); Sodium 145 mmol/L (136-145); Total Bilirubin 0.7 mg/dL (0.15-1.2); Total Protein 5.3 g/dL (6.6-8.7)
[2020-07-23 04:07] LABS: Magnesium 1.4 mg/dL (1.7-2.3)
--- NOTE | 2020-07-23 04:08 | PC.NURSE ---
Bradycardic Pt on Cardizem drip at 15mcg. 3 minutes into metoprolol push patient became bradycardic rate 45. Stopped metoprolol push at this time. Pt had received 2.5mg metoprolol. Cardizem stopped at this time. Did not sustain bradycardia. Rate staying 70-90, rhythm alternating between afib/sinus rhythm. Dr. Junior notified of event. Orders were received to start heparin gtt without initial bolus dose for concerns of throwing clots. Orders were received to obtain head CT prior to start of heparin gtt to r/o hemorrhage.
--- NOTE | 2020-07-23 04:10 | CTR_ITS ---
PROCEDURE INFORMATION: Exam: CT Head Without Contrast Exam date and time: 07/23/2020 4:34 AM Age: 70 years old Clinical indication: Altered mental status/memory loss; Additional info: New onset afib, R/O stroke TECHNIQUE: Imaging protocol: Computed tomography of the head without contrast. Radiation optimization: All CT scans at this facility use at least one of these dose optimization techniques: automated exposure control; mA and/or kV adjustment per patient size (includes targeted exams where dose is matched to clinical indication); or iterative reconstruction. ADDITIONAL STUDY INFORMATION: Total DLP (mGy-cm): 838.62 COMPARISON: CT head wo con* [id number] 04/06/2020 11:22 PM FINDINGS: There is mild low density in the bilateral periventricular white matter which may represent chronic small vessel ischemic disease in the appropriate clinical setting. There are prominent intracranial arterial calcifications. Mild basal ganglia calcifications are likely physiologic. There is mild cerebral cortical volume loss. Ventricles do not appear significantly dilated. No depressed calvarial fracture is demonstrated. Visualized paranasal sinuses and mastoid air cells demonstrate no significant opacification. CT/CT head wo con* [id number] IMPRESSION: Probable chronic ischemic changes as discussed above. Radiation Dose CTDIVOL = (mGy): DLP = 838.62 (mGy-cm)
[2020-07-23] MEDS: ipratropium-albuterol 3 mL Neb INHALATION (05:09)
--- NOTE | 2020-07-23 06:00 | XRR_ITS ---
PROCEDURE INFORMATION: Exam: XR Chest, 1 View Exam date and time: 07/23/2020 5:01 AM Age: 70 years old Clinical indication: Other: A fib; Additional info: Mechanically ventilated TECHNIQUE: Imaging protocol: XR of the chest Views: 1 view. COMPARISON: CR (CHEST, ) 07/22/2020 4:12 PM FINDINGS: There are multiple overlying leads/wires. Otherwise no focal pulmonary consolidation is demonstrated on this single frontal image. No significant obscuration of the lateral costophrenic angles is demonstrated. No significant vascular congestion is demonstrated. There is scattered pulmonary scarring bilaterally. Visualized cardiac silhouette size appears upper normal. There are calcifications in the thoracic aorta. Similar position of the visualized support tubes. XR/XR chest 1V portable [id number] IMPRESSION: No definite acute pulmonary process is demonstrated.
[2020-07-23] MEDS: propofol 1,000 MG/100 ML INJ 11.4 MG IV (06:43)
[2020-07-23 07:23] LABS: Partial Thromboplastin Time 44.2 SECONDS (23.9-36.7)
[2020-07-23] MEDS: magnesium sulfate premix 4 GM/100 ML PREMIX IV (07:49)
--- NOTE | 2020-07-23 07:54 | P.PN_ITS ---
Subjective Subjective: Interval history: Overnight developed a flutter/A. fib with RVR requiring Cardizem drip. Had an episode of bradycardia following addition of low-dose metoprolol IV. Heart rate has improved with noted regularity in her rhythm. She is otherwise hemodynamically stable and has been afebrile. Remains on ventilator support with FiO2 of 40%. ABG this morning appropriate in terms of oxygenation and no hypercapnia. She is off Levophed. Has had 350 mL urine output overnight. CT head and chest x-ray noted to be unremarkable for any acute findings. Noted thrombocytopenia this morning so would hold off on heparin drip at this time. Slight increase in renal function with creatinine up to 1.5. Improvement in magnesium to 1.4, replacement ongoing. Remains on sedation with propofol Medications: Reviewed: Yes Medication Review Details: Active Medications Generic Name Dose Route Start Last Admin Trade Name Freq PRN Reason Stop Dose Admin Acetaminophen 650 mg 07/18/20 20:24 Tylenol PO Q6H PRN Mild/Mod Pain Or Temp >/= 101 Acetaminophen 650 mg 07/22/20 19:47 Tylenol NJ Q6H PRN fever Albuterol Sulfate 2 puff 07/18/20 20:24 07/21/20 15:27 Ventolin INHALATION 2 puff Q4H.RESPIRATORY P RN Administration SHORTNESS OF JULIANA TH Albuterol/Ipratrop ium 3 ml 07/22/20 01:09 07/23/20 05:09 Duoneb INHALATION 3 ml Q4H PRN Administration SHORTNESS OF JULIANA TH Lipase/Protease/Am ylase 1 each 07/19/20 09:00 07/23/20 07:50 Zenpep PO Not Given WM&BEDTIME ANDREW Apixaban 5 mg 07/19/20 09:00 07/22/20 10:53 Eliquis PO 5 mg BID ANDREW Administration Atorvastatin Calci um 40 mg 07/23/20 09:00 Lipitor OG-TUBE DAILY ANDREW Duloxetine HCl 30 mg 07/20/20 09:00 07/22/20 10:54 Cymbalta PO 30 mg DAILY ANDREW Administration Propofol 1,000 mg in 100 m ls @ 0 mls/hr 07/22/20 14:15 07/23/20 06:43 Diprivan IV 25 mcg/kg/min .Q0M ANDREW 11.4 mls/hr Administration Protocol Per Protocol Norepinephrine Bit artrate 4 mg 254 mls @ 0 mls/h r 07/22/20 15:15 07/23/20 05:36 / Dextrose IV 0 mcg/min .Q0M ANDREW 0 mls/hr Titration Protocol Per Protocol Sodium Chloride 500 mls @ 0 mls/h r 07/22/20 20:00 Sodium Chloride 0.9% IV .Q0M ANDREW As Directed Diltiazem HCl 125 mg/ Sodium 125 mls @ 0 mls/h r 07/23/20 03:00 07/23/20 04:08 Chloride IV 0 mg/hr .Q0M ANDREW 0 mls/hr Titration Protocol Per Protocol Levofloxacin/Dextr ose 750 mg in 150 mls @ 100 mls/hr 07/24/20 17:00 Levaquin-D5w IV Q48H ANDREW Protocol Heparin Sodium/Sod ium Chloride 25,000 unit in 50 0 mls @ 0 mls/hr 07/23/20 04:15 Heparin Drip IV .Q0M ANDREW Protocol Per Protocol Magnesium Sulfate 4 gm in 100 mls @ 50 mls/hr 07/23/20 07:00 07/23/20 07:49 Magnesium Sulfat e Premix IV 07/23/20 08:59 50 mls/hr ONCE ONE Administration Isosorbide Mononit rate 30 mg 07/19/20 09:00 07/22/20 10:54 Imdur PO 30 mg DAILY ANDREW Administration Levothyroxine Sodi um 150 mcg 07/23/20 09:00 Synthroid OG-TUBE DAILY ANDREW Metoprolol Tartrat e 25 mg 07/23/20 09:00 Lopressor OG-TUBE BID ANDREW Metoprolol Tartrat e 5 mg 07/23/20 03:46 07/23/20 04:03 Metoprolol Tartr ate IV 5 mg Q5MIN PRN Administration Heart rate > 150 Nitroglycerin 0.4 mg 07/18/20 20:24 Nitrostat SUBLINGUAL Q5M PRN CHEST PAIN Ondansetron HCl 4 mg 07/18/20 20:24 Zofran IVP Q6H PRN NAUSEA AND VOMITI NG Pantoprazole Sodiu m 40 mg 07/23/20 09:00 Protonix IVP DAILY ANDREW Pregabalin 150 mg 07/20/20 09:00 07/22/20 19:32 Lyrica PO Not Given BID ANDREW insect venom Allergy (Verified 06/22/20 13:00) PASS OUT nut - unspecified Allergy (Verified 07/18/20 14:59) ALGY-Anaphylaxis Penicillins Allergy (Verified 06/22/20 12:59) ALGY-Anaphylaxis Sulfa (Sulfonamide Antibiotics) Allergy (Verified 06/22/20 12:59) Unknown guacamole Allergy (Uncoded 07/18/20 14:59) ALGY-Anaphylaxis Vitals/I&O/Wt Last Vital Signs Temp 98.9 F 07/23/20 02:30 Pulse 94 07/23/20 06:00 Resp 14 07/23/20 06:00 BP 105/75 07/23/20 06:00 Pulse Ox 96 07/23/20 06:00 07/22/20 07/23/20 07/23/20 22:59 06:59 14:59 Intake Total 143.806 / 143.806 88.253 / 232.059 Output Total 950 / 950 200 / 1150 Balance -806.194 / -806.194 -111.747 / -917.941 Weight last 48 hrs Weight 75.75 kg Physical Exam Const: COMMON NORMALS: no acute distress GENERAL APPEARANCE: patient mechanically ventilated OTHER: -intermittently restless HENMT: COMMON NORMALS: normocephalic and atraumatic HEAD & SCALP: normocephalic and atraumatic OTHER: -orally intubated Eye: COMMON NORMALS: Equal, round and reactive pupils present, EOMs intact bilaterally and conjunctivae normal CONJUNCTIVA: Yes conjunctivae normal PUPIL: Yes Equal, round and reactive pupils present Neck/C-Spine: GENERAL: Yes normal visual inspection and Yes trachea midline OTHER: -central line in place on L Resp: COMMON NORMALS: normal respiratory effort, No retractions and No use of accessory muscles EFFORT & INSPECTION: Yes able to speak in complete sentences, Yes symmetric chest movement and No tachypneic OTHER: -on vent support (400/40%/8) -diminished though equal breath sounds bilaterally Cardio: COMMON NORMALS: regular rate, S1 normal heart sound present, S2 normal heart sound present and No murmurs present (Cardio) RATE: regular rate RHYTHM: abnormal rhythm irregularly irregular HEART SOUNDS: S1 normal heart sound present and S2 normal heart sound present PERIPHERAL PULSES: posterior tibial pulses present GI: COMMON NORMALS: Normal to inspection, nondistended, normoactive bowel sounds present and Soft to palpation PALPATION: Yes Soft to palpation : BLADDER/KIDNEY EXAM: Yes catheter in place Catheter type (Female): urethral Extremity: COMMON NORMALS: normal to inspection, no clubbing, cyanosis or edema and no pedal edema Neuro: OTHER: -sedated Psych: OTHER: -sedated Skin: COMMON NORMALS: no rashes or lesions noted, no jaundice, no petechiae and no mottling GENERAL SKIN EXAM: no rashes or lesions noted Urinary Catheter Management^: Stanford: Cath Placed During This Visit: yes, but has since been removed by the nurse Reason for Continuing Indwelling Catheter: Acute Urinary Retention or Obs truction Urinary Catheter Date of Insertion: 07/22/20 Urinary Catheter Time of Insertion: 02:00 Date Urinary Catheter Removed: 07/21/20 Time Urinary Catheter Discontinued: 18:30 Data : 07/23/20 03:35 07/23/20 03:35 Micro: Microbiology 07/22/20 13:07 Gram Stain - Final Sputum - Endotracheal Wash A&P Assessment and plan (1) Acute respiratory failure: -intubated on 07/22 due to decreased responsiveness, respiratory acidosis, hypercapnia and hypoxia despite use of BiPAP -remains on vent support, sedation -weaning trial when appropriate -continue to monitor respiratory status -daily ABG, CXR while on vent support; noted improvement in oxygenation and resolved hypercapnia today, no abnormalities on CXR -on empiric levaquin; need to monitor QTc -COVID-19 negative -blood cx: prelim negative -sputum cx pending, gram stain negative Status: Acute Qualifiers: Respiratory failure complication: hypoxia and hypercapnia Qualified Code(s): J96.01 - Acute respiratory failure with hypoxia; J96.02 - Acute respiratory failure with hypercapnia (2) Tachycardia: -overnight was noted to develop atrial flutter/atrial fibrillation -required cardizem drip, now weaned off -telemetry monitoring -daily ECG -noted thrombocytopenia, hold off on initiation of heparin drip. Was on AC with Eliquis due to hx of CVA -Echo (03/2020): EF=45-50%, G1DD, mild global hypokinesis, trace MR, trace AR, trace TR, trace NJ Status: Acute (3) Encephalopathy: -unclear what precipitated this particularly events that led to respiratory failure -strict fall precautions -she appears to have an unsteady gait at baseline -from review of medical record has a somewhat complicated neurological history including prior PRES and CVA with some noted episodes of syncope, tremors. Ongo ing w/u including EEG by Neurology, scheduled for sleep-deprived EEG. Has been following up with cardiology as well. 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 -avoid nephrotoxins, renally dose meds -hold pregabalin, duloxetine while on sedation -has Stanford catheter in place; assess daily for removal, continue to monitor Is & Os -renal function improving, continue to monitor -hold diuresis Status: Acute (5) Dehydration: -with noted diarrhea, now resolved -C.difficile negative, enteric bacterial panel negative -off IVF hydration Status: Resolved (6) CVA (cerebral vascular accident): -known hx of CVA earlier this year (03/2020) with noted multiple areas of infarct on MRI -has been on AC with Eliquis and following up with neurology Status: Chronic Qualifiers: CVA mechanism: unspecified Qualified Code(s): I63.9 - Cerebral infarction, unspecified Additional A&P Information -COVID-19 negative per PCR -Chronic diastolic CHF; Echo (03/2020): EF=45-50%, G1DD, mild global hypokinesis, trace MR, trace AR, trace TR, trace NJ. Diuretics on hold due to renal impairment -oxygen dependent COPD, 2 L baseline requirement qhs -Chronic pancreatitis; on pancreatic enzymes -Chronic pain; on opiates; cautious use; follows up with pain management -Chronic smoker, 1 PPD -hx of hyperlipidemia -Hypothyroidism; on levothyroxine -hx of CAD s/p stenting -cardiac diet as tolerated -GI ppx with PPI -DVT ppx not needed as on Eliquis -Dispo: lives alone and due to ongoing episodes of syncope, may not be safe to return home on her own. Seems open to SNF placement but has done well with therapy and HH recommended. -Code status: FULL code -continue ICU care due to vent support Attestations Medical Necessity Statement*: Patient requires hospitalization for continued management of acute respiratory failure, on vent support, acute renal impairment , encephalopathy. Time Spent in Patient Care: Greater than 35 minutes (>than 50% of time spent in counselling and/or direct pt care on unit) . Critical Care Time: The high probability of a clinically significant, sudden or life threatening deterioration of the patient's [respiratory, cardiovascular] system(s) required my full and direct attention, intervention and personal m anagement. The critical care time is as shown. This time is in addition to time spent performing any reported procedures but includes the following: [x] Data and vital sign review and interpretation [x] Patient assessment, examination and intervention [x] Documentation [x] Medication orders and management Critical Care Time (min): 30 Coding Level of Care Code Acute Preschool Aide for Brandie Blank Diagnoses Acute respiratory failure J96.01; J96.02 Respiratory failure complication: hypoxia and hypercapnia Tachycardia R00.0 Encephalopathy G93.40 Acute kidney injury N17.9 Dehydration E86.0 CVA (cerebral vascular accident) I63.9 CVA mechanism: unspecified
--- NOTE | 2020-07-23 07:58 | ECG_ITS ---
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 Measurements Intervals [place] Rate: 81 P: 71 TX: 150 QRS: 260 QRSD: 143 T: 183 QT: 501 QTc: 583 Interpretive Statements SINUS RHYTHM WITH OCCASIONAL SUPRAVENTRICULAR PREMATURE COMPLEXES MARKED RIGHT AXIS DEVIATION [QRS AXIS > 100] INTRAVENTRICULAR CONDUCTION DELAY [130+ ms QRS DURATION] Compared to ECG 07/23/2020 02:51:46 Right-axis deviation now present Atrial flutter no longer present Left-axis deviation no longer present Myocardial infarct finding no longer present Electronically Signed On 07-24-2020 18:48:47 QUALITY CONTROL REPRESENTATIVE by Cat Lowery M.D. [id number]
--- NOTE | 2020-07-23 10:03 | DCPLANNER ---
Pg 2 of IM updated and copy left at bedside, attempted to call Daughter; Bozena [phone]. Left message asking her to return call so that we can review the IM.
[2020-07-23] MEDS: pantoprazole 40 mg SDV IVP (10:31)
[2020-07-23] MEDS: metoprolol tartrate 25 mg Tablet OG-TUBE ×2 (10:32→19:44)
[2020-07-23] MEDS: levothyroxine 150 mcg Tablet OG-TUBE (10:32)
[2020-07-23] MEDS: atorvastatin 40 mg Tablet OG-TUBE (10:32)
[2020-07-23] MEDS: isosorbide mononitrate ER 30 mg Tablet PO (10:33)
[2020-07-23] MEDS: propofol 1,000 MG/100 ML INJ 18.2 MG IV ×3 (13:31→23:27)
--- NOTE | 2020-07-23 13:56 | ECG_ITS ---
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 Measurements Intervals [place] Rate: 86 P: 57 GA: 152 QRS: -68 QRSD: 129 T: 165 QT: 481 QTc: 576 Interpretive Statements SINUS RHYTHM WITH FREQUENT SUPRAVENTRICULAR PREMATURE COMPLEXES MARKED LEFT AXIS DEVIATION POSSIBLE ANTERIOR MYOCARDIAL INFARCTION, OF INDETERMINATE AGE INTRAVENTRICULAR CONDUCTION DELAY MODERATE T-WAVE ABNORMALITY, CONSIDER LATERAL ISCHEMIA MODERATE T-WAVE ABNORMALITY, CONSIDER INFERIOR ISCHEMIA Compared to ECG 07/23/2020 09:14:41 Left-axis deviation now present Myocardial infarct finding now present T-wave abnormality now present Possible ischemia now present Right-axis deviation no longer present Electronically Signed On 07-24-2020 8:04:18 AIR POLLUTION ANALYST by Cat Lowery M.D. [id number]
[2020-07-24] VITALS (21 sets, daily range): BP systolic 118–183; BP diastolic 63–109; PULSE 72–126; RESP 16–35; TEMP 37.1–37.4; O2SAT 86–99
[2020-07-24 02:55] LABS: ABG PCO2 41.5 mmHg (35-45); ABG PH Result 7.43 (7.35-7.45); Arterial Blood Gas Hematocrit 38.5 % (37-47); Base Excess ABG 2.6 mmol/L (-2.0-2.0); Blood Gas Sample Site Brachial, right; Blood Gas Sample Type Arterial; HCO3 ABG 27.3 mmol/L (22-26); Oxygen Device VENT; PO2 ABG 54.2 mmHg (80.0-100.0)
[2020-07-24] MEDS: propofol 1,000 MG/100 ML INJ 18.2 MG IV (04:30)
[2020-07-24 05:10] LABS: Alanine Aminotransferase 7 U/L (0-33); Albumin Level 3.1 g/dL (3.5-5.2); Alkaline Phosphatase 70 IU/L (35-105); Anion Gap 14.9 (5-19); Aspartate Amino Transferase 11 U/L (0-32); Blood Urea Nitrogen 30 mg/dL (8-23); Calcium 8.9 mg/dL (8.5-10.5); Carbon Dioxide 27 mmol/L (22-29); Chloride 109 mmol/L (98-107); Globulin 2.3 g/dL (1.3-4.6); Glomerular Filtration Rate 37.4 mL/min (90-130); Glucose 84 mg/dL (65-115); Magnesium 2.3 mg/dL (1.7-2.3); Osmolality Calculated 309 mOsm/kg (285-295); Phosphorus 3.8 mg/dL (2.5-4.5); Potassium 3.9 mmol/L (3.5-5.1); Sodium 147 mmol/L (136-145); Total Bilirubin 0.5 mg/dL (0.15-1.2); Total Protein 5.4 g/dL (6.6-8.7)
--- NOTE | 2020-07-24 06:00 | XR_ITS ---
WS: [id number] XR chest 1V portable [id number] REASON FOR EXAM: on vent support FINDINGS: In comparison to previous examination of 07/23/2020, the endotracheal tube, nasogastric tube, and left jugular central venous line remain in place. No significant infiltrates identified. No other interval change or new finding. XR/XR chest 1V portable [id number] IMPRESSION: Stable chest.
[2020-07-24 07:13] LABS: Basophils # 0.1 10^3/uL (0.0-0.1); Eosinophils # 0.3 10^3/uL (0.0-0.8); Eosinophils % 4.8 %; Hematocrit 35.4 % (37.0-47.0); Lymphocytes # 1.5 10^3/uL (0.8-4.8); Lymphocytes % 25.2 %; Mean Corpuscular HGB Conc 31.1 g/dL (30.0-36.0); Mean Corpuscular Hemoglobin 28.9 pg (28.0-34.0); Mean Corpuscular Volume 92.9 fL (81-99); Monocytes # 0.4 10^3/uL (0.2-0.9); Monocytes % 7.1 %; Neutrophils # 3.74 10^3/uL (1.8-7.7); Neutrophils % 61.7 %; Nucleated Red Blood Cells % 0 %; Platelet Count 94 10^3/cmm (130-400); Red Blood Count 3.81 10^6/uL (4.1-5.3); Red Cell Distribution Width 17.4 % (12.1-15.1)
[2020-07-24] MEDS: ipratropium-albuterol 3 mL Neb INHALATION ×2 (07:31→11:06)
[2020-07-24] MEDS: lipase-protease-amylase Capsule 1 EACH PO (08:16)
[2020-07-24] MEDS: pantoprazole 40 mg SDV IVP (08:16)
[2020-07-24] MEDS: heparin 5,000 unit/mL INJ 1 mL 5000 UNIT SUBCUT ×2 (08:16→20:36)
[2020-07-24] MEDS: levothyroxine 150 mcg Tablet OG-TUBE (08:16)
[2020-07-24] MEDS: metoprolol tartrate 25 mg Tablet OG-TUBE (08:16)
[2020-07-24] MEDS: atorvastatin 40 mg Tablet OG-TUBE (08:16)
[2020-07-24] MEDS: isosorbide mononitrate ER 30 mg Tablet PO (08:16)
--- NOTE | 2020-07-24 08:39 | PC.NURSE ---
LESTER HR nurse in room doing assessment and vital signs. Patient monitor alarming Bradycardia. HR noted to be in the 40s when previously maintaining HR of 90s-108. patient HR increased back up to 90s in approximately 60 seconds. strip printed out. notified. Verbal order for new ABG given. No new orders. will continue to monitor.
[2020-07-24 09:06] LABS: White Blood Count 6.1 10^3/uL (4.0-10.0)
[2020-07-24] MEDS: propofol 1,000 MG/100 ML INJ 9.1 MG IV (09:18)
[2020-07-24 09:45] LABS: ABG PCO2 39.8 mmHg (35-45); ABG PH Result 7.43 (7.35-7.45); Alveolar-Arterial Oxygen Gradi 21.4 mmHg (5-10); Arterial Blood Gas Hematocrit 34.5 % (37-47); Base Excess ABG 1.7 mmol/L (-2.0-2.0); Blood Gas Allen Test Pos; Blood Gas Operator Identificat BD; Blood Gas Sample Site Brachial, right; Blood Gas Sample Type Arterial; HCO3 ABG 26.1 mmol/L (22-26); HGB O2 Sat 92.2 % (95-100); Ionized Calcium Level - ABG 1.2 mmol/L (1.1-1.4); Methemoglobin 0.8 % (0.4-1.5); Oxygen Device VENT; Oxygen Saturation ABG 93.9; PO2 ABG 71.4 mmHg (80.0-100.0); Potassium Level - ABG 3.7 mmol/L (3.5-5.0); Total Hemoglobin 11.2 g/dL (12-16)
--- NOTE | 2020-07-24 11:16 | P.PN_ITS ---
Subjective Subjective: Interval history: Patient is still encephalopathic. We have been able to extubate her today as she is able to protect her airways. She is saturating over 90 % on 4Ls Oxygen. We have discotinued Levofloxacin today and brodened her ABx Coverage to vancomycin,imipenam and acyclovir for possible/Meningitis/encephalitis coverage. Plan is to get MRI brain without contrast in am. Vitals and labs have been reviewed. Vitals/I&O/Wt Last Vital Signs Temp 99.1 F 07/24/20 08:00 Pulse 83 07/24/20 11:06 Resp 28 H 07/24/20 11:06 BP 122/66 07/24/20 10:00 Pulse Ox 96 07/24/20 11:06 07/23/20 07/24/20 07/24/20 22:59 06:59 14:59 Intake Total 152.567 / 252.567 159.25 / 411.817 95.247 / 95.247 Output Total 350 / 350 275 / 625 Balance -197.433 / -97.433 -115.75 / -213.183 95.247 / 95.247 Physical Exam Narrative: EXAM NARRATIVE: Currently AO*0 HENMT: COMMON NORMALS: normocephalic and atraumatic HEAD & SCALP: normocephalic and atraumatic Eye: COMMON NORMALS: no scleral icterus GENERAL EYE: appearance normal, both eyes and all related structures Chest: COMMONS NORMALS: normal inspection of the chest and normal palpation of entire chest wall CHEST: Yes Symmetrical chest wall rise Resp: COMMON NORMALS: normal respiratory effort, No retractions and No use of accessory muscles EFFORT & INSPECTION: Yes symmetric chest movement OTHER: B/L Coarse breath sounds with b/l basal crackles. Cardio: COMMON NORMALS: regular rate, regular rhythm, S1 normal heart sound present, S2 normal heart sound present, No gallops present (Cardio), No murmurs present (Cardio), No rub (Cardio) and Peripheral pulses 2+ throughout RATE: regular rate RHYTHM: regular rhythm HEART SOUNDS: S1 normal heart sound present and S2 normal heart sound present PERIPHERAL PULSES: Peripheral pulses 2+ throughout GI: COMMON NORMALS: Normal to inspection, nondistended, normoactive bowel sounds present, Soft to palpation, non-tender, No hepatosplenomegaly present and no masses AUSCULTATION: Yes normoactive bowel sounds PALPATION: Yes Soft to palpation and Yes No hepatosplenomegaly present RECTAL EXAM: deferred Extremity: COMMON NORMALS: no clubbing, cyanosis or edema and no pedal edema Urinary Catheter Management^: Stanford: Cath Placed During This Visit: yes, but has since been removed by the nurse Reason for Continuing Indwelling Catheter: Accurate Measurement of Urinary Output in Critically Ill Patients Urinary Catheter Date of Insertion: 07/22/20 Urinary Catheter Time of Insertion: 02:00 Date Urinary Catheter Removed: 07/21/20 Time Urinary Catheter Discontinued: 18:30 Data : 07/24/20 03:27 07/24/20 03:27 Micro: Microbiology 07/18/20 22:24 Blood Culture - Final Blood NO GROWTH AFTER 5 DAYS 07/18/20 22:24 Blood Culture - Final Blood NO GROWTH AFTER 5 DAYS 07/22/20 13:07 Gram Stain - Final Sputum - Endotracheal Wash Sputum Culture - Preliminary A&P Assessment and plan (1) Acute respiratory failure: -intubated on 07/22 due to decreased responsiveness, respiratory acidosis, hypercapnia and hypoxia despite use of BiPAP/S/P Extubation on 07/24. Currently saturating above 90 % on 4l Oxygen Via NC Status: Acute Qualifiers: Respiratory failure complication: hypoxia and hypercapnia Qualified Code(s): J96.01 - Acute respiratory failure with hypoxia; J96.02 - Acute respiratory failure with hypercapnia (2) Tachycardia: -overnight was noted to develop atrial flutter/atrial fibrillation -required cardizem drip, now weaned off -telemetry monitoring -daily ECG -noted thrombocytopenia, hold off on initiation of heparin drip. Was on AC with Eliquis due to hx of CVA -Echo (03/2020): EF=45-50%, G1DD, mild global hypokinesis, trace MR, trace AR, trace TR, trace [place] Status: Acute (3) Encephalopathy: -unclear what precipitated this particularly events that led to respiratory failure -strict fall precautions -she appears to have an unsteady gait at baseline -from review of medical record has a somewhat complicated neurological history including prior PRES and CVA with some noted episodes of syncope, tremors. Ongoing w/u including EEG by Neurology, scheduled for sleep-deprived EEG. Has been following up with cardiology as well. -CT head negative for acute changes, no noted neuro deficits prior to intubation We have discotinued Levofloxacin today and broadened her ABx Coverage to vancomycin,imipenam and acyclovir for possible/Meningitis/encephalitis coverage. Plan for L.P Plan is to get MRI brain without contrast in am. 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 -avoid nephrotoxins, renally dose meds -hold pregabalin, duloxetine while on sedation -has [place] catheter in place; assess daily for removal, continue to monitor Is & Os -renal function improving, continue to monitor -hold diuresis Status: Acute (5) Dehydration: -with noted diarrhea, now resolved -C.difficile negative, enteric bacterial panel negative -off IVF hydration Status: Resolved (6) CVA (cerebral vascular accident): -known hx of CVA earlier this year (03/2020) with noted multiple areas of infarct on MRI -has been on AC with Eliquis and following up with neurology Status: Chronic Qualifiers: CVA mechanism: unspecified Qualified Code(s): I63.9 - Cerebral infarction, unspecified Additional A&P Information -COVID-19 negative per PCR -Chronic diastolic CHF; Echo (03/2020): EF=45-50%, G1DD, mild global hypokinesis, trace MR, trace AR, trace TR, trace FL. Diuretics on hold due to renal impairment -oxygen dependent COPD, 2 L baseline requirement qhs -Chronic pancreatitis; on pancreatic enzymes -Chronic pain; on opiates; cautious use; follows up with pain management -Chronic smoker, 1 PPD -hx of hyperlipidemia -Hypothyroidism; on levothyroxine -hx of CAD s/p stenting -NPO -GI ppx with PPI -DVT ppx not needed as on Eliquis -Dispo: lives alone and due to ongoing episodes of syncope, may not be safe to return home on her own. Seems open to SNF placement but has done well with therapy and HH recommended. -Code status: FULL code -continue ICU care Attestations Medical Necessity Statement*: Patient needs to be in hospital for management of Ac encephalopathy Coding Level of Care Code Acute Dental Laboratory Technician Apprentice for [facility] Diagnoses Acute respiratory failure J96.01; J96.02 Respiratory failure complication: hypoxia and hypercapnia Tachycardia R00.0 Encephalopathy G93.40 Acute kidney injury N17.9 Dehydration E86.0 CVA (cerebral vascular accident) I63.9 CVA mechanism: unspecified
--- NOTE | 2020-07-24 12:01 | PC.RESP ---
extubated pt extubated and placed on 4lpm nc
--- NOTE | 2020-07-24 12:04 | PC.NURSE ---
Extubation patient extubated at 1155. patient tolerated well. plced on 4L NC. bilateral soft wrist restraints removed by nurse.
--- NOTE | 2020-07-24 12:18 | PC.NURSE ---
Bed alarm patient moving all extremities. patient attempting to get out of bed. Bed alarm turned on. instructed patient to stay in bed for patient safety. patient unable to follow commands at this time. Call to daughterSherrell. nurse asked daughter what baseline mental status was for patient. according to daughter, patient is able to carry on a conversation with others. patent uses a walked at home for injured foot. daughter states that prior to admission, mother had been slightly confused.
[2020-07-24] MEDS: LORazepam 2 mg/mL INJ 1 mL 0.5 MG IVP ×3 (12:31→22:15)
--- NOTE | 2020-07-24 14:54 | PC.NURSE ---
Call to Physician nurse sent secured message on VOALTE informing Dr of what family states is baseline for patient. message sent at 1400. no new orders at this time. will continue to monitor.
[2020-07-24] MEDS: hyDRALAzine 20 mg/mL INJ 1 mL 5 MG IVP (15:48)
[2020-07-24] MEDS: levofloxacin-dextrose 5 % 750 MG/150 ML PREMIX 100 MG IV (16:38)
[2020-07-24] MEDS: dexmedetomidine 400 MCG in sodium chloride 0.9% (100 ml) 100 ML IV (16:42)
[2020-07-24] MEDS: metoprolol tartrate 1 mg/1 mL SDV 5 mL 5 MG IV (17:50)
[2020-07-24] MEDS: LORazepam 2 mg/mL INJ 1 mL 1 MG IVP (18:16)
[2020-07-24] MEDS: sodium chloride 0.9% 1,000 ML 125 ML IV (20:37)
[2020-07-24] MEDS: FUROsemide 10 mg/mL SDV 4mL 40 MG IVP (21:27)
[2020-07-24] MEDS: acyclovir 500 MG in sodium chloride 0.9% (100 ml) 100 ML 110 MG IV (22:15)
--- NOTE | 2020-07-24 22:24 | PC.PHAR ---
Vancomycin is dosed at 1gm IVPB every 24 hours to produce a predicted trough level of 15.82 (population based pharmacokinetic analysis). A trough level has been ordered from the lab to be obtained before the fourth dose to confirm and adjust if needed.
[2020-07-24] MEDS: vancomycin 1,000 MG in sodium chloride 0.9% 250 ML 250 MG IV (22:44)
[2020-07-25] VITALS (23 sets, daily range): BP systolic 142–175; BP diastolic 71–109; PULSE 67–93; RESP 19–44; TEMP 36.9–37.3; O2SAT 88–97
[2020-07-25] MEDS: dexmedetomidine 400 MCG in sodium chloride 0.9% (100 ml) 100 ML 13.8 MCG IV ×2 (00:53→07:31)
[2020-07-25] MEDS: ipratropium-albuterol 3 mL Neb INHALATION ×3 (04:14→19:48)
[2020-07-25] MEDS: LORazepam 2 mg/mL INJ 1 mL 0.5 MG IVP ×3 (04:41→14:28)
[2020-07-25] MEDS: hyDRALAzine 20 mg/mL INJ 1 mL 5 MG IVP ×2 (04:46→12:29)
[2020-07-25] MEDS: acyclovir 500 MG in sodium chloride 0.9% (100 ml) 100 ML 110 MG IV ×2 (06:09→22:42)
[2020-07-25 07:42] LABS: Procalcitonin 0.16 ng/mL (0-0.5)
--- NOTE | 2020-07-25 08:18 | DCPLANNER ---
Again attempted to reach Daughter; Bozena @ [phone] to review IM, no answer, left message asking her to return call.
[2020-07-25 08:49] LABS: Basophils % 0.6 %; Eosinophils # 0.2 10^3/uL (0.0-0.8); Eosinophils % 3.4 %; Hematocrit 34.5 % (37.0-47.0); Hemoglobin 10.9 g/dL (11.5-15.3); Lymphocytes # 0.9 10^3/uL (0.8-4.8); Lymphocytes % 18.8 %; Mean Corpuscular HGB Conc 31.6 g/dL (30.0-36.0); Mean Corpuscular Volume 91.8 fL (81-99); Mean Platelet Volume 13.6 fL (7.4-10.4); Monocytes # 0.3 10^3/uL (0.2-0.9); Monocytes % 7.2 %; Neutrophils % 69.8 %; Nucleated Red Blood Cells % 0 %; Platelet Count 87 10^3/cmm (130-400); Red Blood Count 3.76 10^6/uL (4.1-5.3); Red Cell Distribution Width 16.9 % (12.1-15.1); White Blood Count 4.7 10^3/uL (4.0-10.0)
[2020-07-25 09:04] LABS: Alanine Aminotransferase 8 U/L (0-33); Albumin Level 3.2 g/dL (3.5-5.2); Alkaline Phosphatase 73 IU/L (35-105); Anion Gap 18.3 (5-19); Aspartate Amino Transferase 19 U/L (0-32); Blood Urea Nitrogen 25 mg/dL (8-23); Carbon Dioxide 27 mmol/L (22-29); Chloride 110 mmol/L (98-107); Globulin 2.6 g/dL (1.3-4.6); Glomerular Filtration Rate 49.4 mL/min (90-130); Glucose 118 mg/dL (65-115); Osmolality Calculated 319 mOsm/kg (285-295); Potassium 3.3 mmol/L (3.5-5.1); Sodium 152 mmol/L (136-145); Total Bilirubin 0.7 mg/dL (0.15-1.2); Total Protein 5.8 g/dL (6.6-8.7)
[2020-07-25] MEDS: heparin 5,000 unit/mL INJ 1 mL 5000 UNIT SUBCUT ×2 (09:05→20:48)
--- NOTE | 2020-07-25 11:53 | PC.SLP ---
Nurse request hold on swallowing eval at this time till tomorrow due to decreased alertness. CUSTOMER ADVISOR will attempt to will attempt to eval tomorrow.
--- NOTE | 2020-07-25 12:18 | PC.NURSE ---
pt. doesnt follow commands am meds not given.
[2020-07-25] MEDS: LORazepam 2 mg/mL INJ 1 mL 4 MG IVP (12:25)
[2020-07-25] MEDS: pantoprazole 40 mg SDV IVP (12:29)
[2020-07-25] MEDS: dextrose 5%-sod chloride 0.45% 1,000 ML 125 ML IV ×2 (12:40→20:49)
[2020-07-25] MEDS: LORazepam 2 mg/mL INJ 1 mL IVP ×2 (12:49→15:31)
[2020-07-25] MEDS: potassium chloride premix 100 ML 25 MEQ IV (13:14)
--- NOTE | 2020-07-25 13:36 | P.PN_ITS ---
Subjective Subjective: Interval history: Patient continues to be encephalopathic and combative.MRI Head without contrast was attempted.But patient was extremely restless hence could not be completed. Medications: Reviewed: Yes Vitals/I&O/Wt Last Vital Signs Temp 99.1 F 07/25/20 07:00 Pulse 72 07/25/20 08:18 Resp 22 H 07/25/20 08:08 BP 162/85 07/25/20 07:00 Pulse Ox 96 07/25/20 08:08 07/24/20 07/25/20 07/25/20 22:59 06:59 14:59 Intake Total 126.627 / 221.874 174.4 / 279.596 1161.54 / 1651.54 Output Total 1900 / 1900 1250 / 3150 Balance -1773.373 / -1678.126 -1075.6 / -2753.726 1651.54 / 1651.54 Physical Exam Narrative: EXAM NARRATIVE: AO*0 HENMT: COMMON NORMALS: normocephalic and atraumatic HEAD & SCALP: normocephalic and atraumatic Eye: COMMON NORMALS: no scleral icterus GENERAL EYE: appearance normal, both eyes and all related structures Chest: COMMONS NORMALS: normal inspection of the chest and normal palpation of entire chest wall CHEST: Yes Symmetrical chest wall rise Resp: COMMON NORMALS: normal respiratory effort, No retractions, No use of accessory muscles and clear to auscultation bilaterally EFFORT & INSPECTION: Yes symmetric chest movement AUSCULTATION: clear to auscultation bilaterally OTHER: B/L Coarse breath sounds with b/l basal crackles. Cardio: COMMON NORMALS: regular rate, regular rhythm, S1 normal heart sound present, S2 normal heart sound present, No gallops present (Cardio), No murmurs present (Cardio), No rub (Cardio) and Peripheral pulses 2+ throughout RATE: regular rate RHYTHM: regular rhythm HEART SOUNDS: S1 normal heart sound present and S2 normal heart sound present PERIPHERAL PULSES: Peripheral pulses 2+ throughout GI: COMMON NORMALS: Normal to inspection, nondistended, normoactive bowel sounds present, Soft to palpation, non-tender, No hepatosplenomegaly present and no masses AUSCULTATION: Yes normoactive bowel sounds PALPATION: Yes Soft to palpation and Yes No hepatosplenomegaly present RECTAL EXAM: deferred Extremity: COMMON NORMALS: no clubbing, cyanosis or edema and no pedal edema Urinary Catheter Management^: Stanford: Cath Placed During This Visit: yes, but has since been removed by the nurse Reason for Continuing Indwelling Catheter: Accurate Measurement of Urinary Output in Critically Ill Patients Urinary Catheter Date of Insertion: 07/22/20 Urinary Catheter Time of Insertion: 02:00 Date Urinary Catheter Removed: 07/21/20 Time Urinary Catheter Discontinued: 18:30 Data : 07/25/20 04:00 07/25/20 04:00 Micro: Microbiology 07/22/20 13:07 Gram Stain - Final Sputum - Endotracheal Wash Sputum Culture - Final A&P Assessment and plan (1) Acute respiratory failure: -intubated on 07/22 due to decreased responsiveness, respiratory acidosis, hypercapnia and hypoxia despite use of BiPAP/S/P Extubation on 07/24. Currently saturating above 90 % on 4l Oxygen Via NC Status: Acute Qualifiers: Respiratory failure complication: hypoxia and hypercapnia Qualified Code(s): J96.01 - Acute respiratory failure with hypoxia; J96.02 - Acute respiratory failure with hypercapnia (2) Tachycardia: -overnight was noted to develop atrial flutter/atrial fibrillation -required cardizem drip, now weaned off -telemetry monitoring -daily ECG -noted thrombocytopenia, hold off on initiation of heparin drip. Was on AC with Eliquis due to hx of CVA -Echo (03/2020): EF=45-50%, G1DD, mild global hypokinesis, trace MR, trace AR, trace TR, trace MD Status: Acute (3) Encephalopathy: -unclear what precipitated this particularly events that led to respiratory failure -strict fall precautions -she appears to have an unsteady gait at baseline -from review of medical record has a somewhat complicated neurological history including prior PRES and CVA with some noted episodes of syncope, tremors. Ongoing w/u including EEG by Neurology, scheduled for sleep-deprived EEG. Has been following up with cardiology as well. -CT head negative for acute changes, no noted neuro deficits prior to intubation We have discotinued Levofloxacin today and broadened her ABx Coverage to vancomycin,imipenam and acyclovir for possible/Meningitis/encephalitis coverage. Plan for L.P Plan is to get MRI brain without contrast in am. 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 -avoid nephrotoxins, renally dose meds -hold pregabalin, duloxetine while on sedation -has Stanford catheter in place; assess daily for removal, continue to monitor Is & Os -renal function improving, continue to monitor -hold diuresis Status: Acute (5) Dehydration: -with noted diarrhea, now resolved -C.difficile negative, enteric bacterial panel negative -off IVF hydration Status: Resolved (6) CVA (cerebral vascular accident): -known hx of CVA earlier this year (03/2020) with noted multiple areas of infarct on MRI -has been on AC with Eliquis and following up with neurology Status: Chronic Qualifiers: CVA mechanism: unspecified Qualified Code(s): I63.9 - Cerebral infarction, unspecified Additional A&P Information -COVID-19 negative per PCR -Chronic diastolic CHF; Echo (03/2020): EF=45-50%, G1DD, mild global hypokinesis, trace MR, trace AR, trace TR, trace MD. -I.V 40 MG Lasix today -oxygen dependent COPD, 2 L baseline requirement qhs -Chronic pancreatitis; on pancreatic enzymes -Chronic pain; on opiates; cautious use; follows up with pain management -Chronic smoker, 1 PPD -hx of hyperlipidemia -Hypothyroidism; on levothyroxine -hx of CAD s/p stenting -NPO -GI ppx with PPI -DVT ppx not needed as on Eliquis -Dispo: lives alone and due to ongoing episodes of syncope, may not be safe to return home on her own. Seems open to SNF placement but has done well with therapy and HH recommended. -Code status: FULL code -continue ICU care Attestations Medical Necessity Statement*: Patient needs to be in hospital for the management of Ac Encephalopathy and respiratory failure. Coding Level of Care Code Acute Insurance Claims Representative for Brandie Fwjuan alberto Diagnoses Acute respiratory failure J96.01; J96.02 Respiratory failure complication: hypoxia and hypercapnia Tachycardia R00.0 Encephalopathy G93.40 Acute kidney injury N17.9 Dehydration E86.0 CVA (cerebral vascular accident) I63.9 CVA mechanism: unspecified
[2020-07-25] MEDS: acyclovir 500 MG in sodium chloride 0.9% (100 ml) 100 ML 100 MG IV (15:19)
[2020-07-25] MEDS: FUROsemide 10 mg/mL SDV 4mL 40 MG IVP (15:35)
--- NOTE | 2020-07-25 15:42 | PC.NURSE ---
dr newell in. pt. conts to roll around in bed. resp. remain in the upper 40s. opens eyes to loud verbal stimuli. doesnt follow commands.
[2020-07-25] MEDS: dexmedetomidine 400 MCG in sodium chloride 0.9% (100 ml) 100 ML 18.7 MCG IV (16:37)
[2020-07-25] MEDS: labetalol 300 MG in sodium chloride 0.9% 240 ML 30 MG IV (16:47)
[2020-07-25 18:27] LABS: ABG PCO2 42.2 mmHg (35-45); ABG PH Result 7.46 (7.35-7.45); Alveolar-Arterial Oxygen Gradi 12.8 mmHg (5-10); Arterial Blood Gas Hematocrit 36.2 % (37-47); Base Excess ABG 5.9 mmol/L (-2.0-2.0); Blood Gas Allen Test Pos; Blood Gas Operator Identificat CK; Blood Gas Sample Site Brachial, left; Blood Gas Sample Type Arterial; Carboxyhemoglobin 1.4 %THgb (0.4-20.1); HCO3 ABG 30.2 mmol/L (22-26); Ionized Calcium Level - ABG 1.2 mmol/L (1.1-1.4); Methemoglobin 0.8 % (0.4-1.5); Oxygen Device NC; Oxygen Saturation ABG 83.8; PO2 ABG 48.3 mmHg (80.0-100.0); Potassium Level - ABG 3.3 mmol/L (3.5-5.0); Total Hemoglobin 11.8 g/dL (12-16)
[2020-07-25] MEDS: labetalol 300 MG in sodium chloride 0.9% 240 ML 90 MG IV (21:30)
[2020-07-25] MEDS: vancomycin 1,000 MG in sodium chloride 0.9% 250 ML 250 MG IV (22:41)
[2020-07-26] VITALS (37 sets, daily range): BP systolic 111–174; BP diastolic 64–93; PULSE 0–79; RESP 23–35; TEMP 36.7; O2SAT 84–99
[2020-07-26] MEDS: dexmedetomidine 400 MCG in sodium chloride 0.9% (100 ml) 100 ML 13.8 MCG IV
[2020-07-26] MEDS: LORazepam 2 mg/mL INJ 1 mL IVP ×3 (00:56→19:13)
[2020-07-26] MEDS: labetalol 300 MG in sodium chloride 0.9% 240 ML 75 MG IV (02:03)
[2020-07-26 03:47] LABS: Basophils % 0.4 %; Eosinophils # 0.6 10^3/uL (0.0-0.8); Eosinophils % 10.9 %; Hematocrit 33.1 % (37.0-47.0); Hemoglobin 10.3 g/dL (11.5-15.3); Lymphocytes # 0.8 10^3/uL (0.8-4.8); Lymphocytes % 15.7 %; Mean Corpuscular HGB Conc 31.1 g/dL (30.0-36.0); Mean Corpuscular Hemoglobin 28.6 pg (28.0-34.0); Mean Corpuscular Volume 91.9 fL (81-99); Mean Platelet Volume 13.3 fL (7.4-10.4); Monocytes # 0.4 10^3/uL (0.2-0.9); Monocytes % 6.8 %; Neutrophils # 3.41 10^3/uL (1.8-7.7); Neutrophils % 66.2 %; Nucleated Red Blood Cells % 0 %; Platelet Count 85 10^3/cmm (130-400); Red Cell Distribution Width 16.7 % (12.1-15.1); White Blood Count 5.2 10^3/uL (4.0-10.0)
[2020-07-26 04:09] LABS: Alanine Aminotransferase 8 U/L (0-33); Albumin Level 3.1 g/dL (3.5-5.2); Alkaline Phosphatase 69 IU/L (35-105); Anion Gap 11.1 (5-19); Aspartate Amino Transferase 18 U/L (0-32); Blood Urea Nitrogen 18 mg/dL (8-23); Calcium 8.1 mg/dL (8.5-10.5); Carbon Dioxide 31 mmol/L (22-29); Chloride 112 mmol/L (98-107); Glomerular Filtration Rate 55.1 mL/min (90-130); Glucose 179 mg/dL (65-115); Magnesium 1.1 mg/dL (1.7-2.3); Osmolality Calculated 318 mOsm/kg (285-295); Potassium 3.1 mmol/L (3.5-5.1); Sodium 151 mmol/L (136-145); Total Bilirubin 0.5 mg/dL (0.15-1.2); Total Protein 5.1 g/dL (6.6-8.7)
[2020-07-26] MEDS: acyclovir 500 MG in sodium chloride 0.9% (100 ml) 100 ML 110 MG IV ×3 (05:06→22:42)
[2020-07-26] MEDS: dextrose 5%-sod chloride 0.45% 1,000 ML 125 ML IV ×2 (05:06→12:46)
--- NOTE | 2020-07-26 06:00 | CT_ITS ---
WS: [id number] CT HEAD TECHNIQUE: Noncontrast CT of the head obtained from the skullbase to the vertex. CLINICAL INFORMATION: Ac encephalopathy COMPARISON: July 23, 2020 DLP: 575.[address] scans at use at least one of these dose optimization techniques: automat ed exposure control; mA and/or kV adjustment per patient size (includes targeted exams where dose is matched to clinical indication); or iterative reconstruction. FINDINGS: No evidence of intracranial hemorrhage or mass effect. Ventricular system and basal cisterns are ibarra nt. Mild small vessel changes with mild parenchymal volume loss. No extra-axial fluid collections. No evidence of mass or mass effect. Normal adame-white differentiation. Paranasal sinuses and mastoid air cells are well aerated. .Normal visualized soft tissues. Intracrani al vascular calcifications. CT/CT head wo con* [id number] IMPRESSION: 1. No evidence of intracranial hemorrhage or mass effect. 2. Mild small vessel changes. Mild parenchymal volume loss. 3. No acute intracranial findings and no significant changes since July.
[2020-07-26] MEDS: labetalol 300 MG in sodium chloride 0.9% 240 ML 60 MG IV (06:09)
[2020-07-26] MEDS: potassium chloride premix 100 ML 25 MEQ IV (06:14)
[2020-07-26] MEDS: magnesium sulfate premix 2 GM/50 ML PIGGYBACK IV (06:14)
[2020-07-26] MEDS: ipratropium-albuterol 3 mL Neb INHALATION ×2 (08:05→20:59)
[2020-07-26] MEDS: dexmedetomidine 400 MCG in sodium chloride 0.9% (100 ml) 100 ML 13.1 MCG IV (08:37)
[2020-07-26] MEDS: heparin 5,000 unit/mL INJ 1 mL 5000 UNIT SUBCUT (09:36)
[2020-07-26] MEDS: pantoprazole 40 mg SDV IVP (09:37)
--- NOTE | 2020-07-26 10:33 | P.PN_ITS ---
Subjective Subjective: Interval history: She was less agitated today has required less precdex today. Vitals and labs stable Medications: Reviewed: Yes Medication Review Details: Active Medications Generic Name Dose Route Start Last Admin Trade Name Freq PRN Reason Stop Dose Admin Acetaminophen 650 mg 07/18/20 20:24 Tylenol PO Q6H PRN Mild/Mod Pain Or Temp >/= 101 Acetaminophen 650 mg 07/22/20 19:47 Tylenol MO Q6H PRN fever Albuterol Sulfate 2 puff 07/18/20 20:24 07/21/20 15:27 Ventolin INHALATION 2 puff Q4H.RESPIRATORY P RN Administration SHORTNESS OF JULIANA TH Albuterol/Ipratrop ium 3 ml 07/22/20 01:09 07/23/20 05:09 Duoneb INHALATION 3 ml Q4H PRN Administration SHORTNESS OF JULIANA TH Lipase/Protease/Am ylase 1 each 07/19/20 09:00 07/23/20 07:50 Zenpep PO Not Given WM&BEDTIME ANDREW Apixaban 5 mg 07/19/20 09:00 07/22/20 10:53 Eliquis PO 5 mg BID ANDREW Administration Atorvastatin Calci um 40 mg 07/23/20 09:00 Lipitor OG-TUBE DAILY ANDREW Duloxetine HCl 30 mg 07/20/20 09:00 07/22/20 10:54 Cymbalta PO 30 mg DAILY ANDREW Administration Propofol 1,000 mg in 100 m ls @ 0 mls/hr 07/22/20 14:15 07/23/20 06:43 Diprivan IV 25 mcg/kg/min .Q0M ANDREW 11.4 mls/hr Administration Protocol Per Protocol Norepinephrine Bit artrate 4 mg 254 mls @ 0 mls/h r 07/22/20 15:15 07/23/20 05:36 / Dextrose IV 0 mcg/min .Q0M ANDREW 0 mls/hr Titration Protocol Per Protocol Sodium Chloride 500 mls @ 0 mls/h r 07/22/20 20:00 Sodium Chloride 0.9% IV .Q0M ANDREW As Directed Diltiazem HCl 125 mg/ Sodium 125 mls @ 0 mls/h r 07/23/20 03:00 07/23/20 04:08 Chloride IV 0 mg/hr .Q0M ANDREW 0 mls/hr Titration Protocol Per Protocol Levofloxacin/Dextr ose 750 mg in 150 mls @ 100 mls/hr 07/24/20 17:00 Levaquin-D5w IV Q48H [facility] Protocol Heparin Sodium/Sod ium Chloride 25,000 unit in 50 0 mls @ 0 mls/hr 07/23/20 04:15 Heparin Drip IV .Q0M [facility] Protocol Per Protocol Magnesium Sulfate 4 gm in 100 mls @ 50 mls/hr 07/23/20 07:00 07/23/20 07:49 Magnesium Sulfat e Premix IV 07/23/20 08:59 50 mls/hr ONCE ONE Administration Isosorbide Mononit rate 30 mg 07/19/20 09:00 07/22/20 10:54 Imdur PO 30 mg DAILY [facility] Administration Levothyroxine Sodi um 150 mcg 07/23/20 09:00 Synthroid OG-TUBE DAILY [facility] Metoprolol Tartrat e 25 mg 07/23/20 09:00 Lopressor OG-TUBE BID [facility] Metoprolol Tartrat e 5 mg 07/23/20 03:46 07/23/20 04:03 Metoprolol Tartr ate IV 5 mg Q5MIN PRN Administration Heart rate > 150 Nitroglycerin 0.4 mg 07/18/20 20:24 Nitrostat SUBLINGUAL Q5M PRN CHEST PAIN Ondansetron HCl 4 mg 07/18/20 20:24 Zofran IVP Q6H PRN NAUSEA AND VOMITI NG Pantoprazole Sodiu m 40 mg 07/23/20 09:00 Protonix IVP DAILY [facility] Pregabalin 150 mg 07/20/20 09:00 07/22/20 19:32 Lyrica PO Not Given BID [facility] insect venom Allergy (Verified 06/22/20 13:00) PASS OUT nut - unspecified Allergy (Verified 07/18/20 14:59) ALGY-Anaphylaxis Penicillins Allergy (Verified 06/22/20 12:59) ALGY-Anaphylaxis Sulfa (Sulfonamide Antibiotics) Allergy (Verified 06/22/20 12:59) Unknown guacamole Allergy (Uncoded 07/18/20 14:59) ALGY-Anaphylaxis Vitals/I&O/Wt Last Vital Signs Temp 98.4 F 07/25/20 20:00 Pulse 66 07/26/20 08:12 Resp 24 H 07/26/20 08:12 BP 121/76 07/26/20 07:00 Pulse Ox 96 07/26/20 08:12 07/25/20 07/26/20 07/26/20 22:59 06:59 14:59 Intake Total 1661.968 / 3410.108 2229.432 / 5639.540 104 / 104 Output Total 2450 / 2450 200 / 2650 Balance -788.032 / 457.353 7629.432 / 2989.540 104 / 104 Physical Exam Narrative: EXAM NARRATIVE: AO*0 HENMT: COMMON NORMALS: normocephalic, atraumatic, hearing grossly normal bilaterally and external ears normal HEAD & SCALP: normocephalic and atraumatic EXTERNAL EAR: Yes external ears normal Eye: COMMON NORMALS: no scleral icterus GENERAL EYE: appearance normal, both eyes and all related structures Chest: COMMONS NORMALS: normal inspection of the chest and normal palpation of entire chest wall CHEST: Yes Symmetrical chest wall rise Resp: COMMON NORMALS: normal respiratory effort, No retractions, No use of accessory muscles and clear to auscultation bilaterally EFFORT & INSPECTION: Yes symmetric chest movement AUSCULTATION: clear to auscultation bilaterally OTHER: B/L Coarse breath sounds with b/l basal crackles. Cardio: COMMON NORMALS: regular rate, regular rhythm, S1 normal heart sound present, S2 normal heart sound present, No gallops present (Cardio), No murmurs present (Cardio), No rub (Cardio) and Peripheral pulses 2+ throughout RATE: regular rate RHYTHM: regular rhythm HEART SOUNDS: S1 normal heart sound present and S2 normal heart sound present PERIPHERAL PULSES: Peripheral pulses 2+ throughout GI: COMMON NORMALS: Normal to inspection, nondistended, normoactive bowel sounds present, Soft to palpation, non-tender, No hepatosplenomegaly present and no masses AUSCULTATION: Yes normoactive bowel sounds PALPATION: Yes Soft to palpation and Yes No hepatosplenomegaly present RECTAL EXAM: deferred : COMMON NORMALS: Yes no CVA tenderness BLADDER/KIDNEY EXAM: Yes no CVA tenderness Back/Pelvis: COMMON NORMALS: no CVA tenderness Extremity: COMMON NORMALS: no clubbing, cyanosis or edema and no pedal edema Urinary Catheter Management^: Stanford: Cath Placed During This Visit: yes, but has since been removed by the nurse Reason for Continuing Indwelling Catheter: Accurate Measurement of Urinary Output in Critically Ill Patients Urinary Catheter Date of Insertion: 07/22/20 Urinary Catheter Time of Insertion: 02:00 Date Urinary Catheter Removed: 07/21/20 Time Urinary Catheter Discontinued: 18:30 Data : 07/26/20 03:08 07/26/20 03:08 A&P Assessment and plan (1) Acute respiratory failure: -intubated on 07/22 due to decreased responsiveness, respiratory acidosis, hypercapnia and hypoxia despite use of BiPAP/S/P Extubation on 07/24. Currently saturating above 90 % on 4l Oxygen Via NC Status: Acute Qualifiers: Respiratory failure complication: hypoxia and hypercapnia Qualified Code(s): J96.01 - Acute respiratory failure with hypoxia; J96.02 - Acute respiratory failure with hypercapnia (2) Tachycardia: -overnight was noted to develop atrial flutter/atrial fibrillation -required cardizem drip, now weaned off -telemetry monitoring -daily ECG -noted thrombocytopenia, hold off on initiation of heparin drip. Was on AC with Eliquis due to hx of CVA -Echo (03/2020): EF=45-50%, G1DD, mild global hypokinesis, trace MR, trace AR, trace TR, trace MO Status: Acute (3) Encephalopathy: -unclear what precipitated this particularly events that led to respiratory failure -strict fall precautions -she appears to have an unsteady gait at baseline -from review of medical record has a somewhat complicated neurological history including prior PRES and CVA with some noted episodes of syncope, tremors. Ongoing w/u including EEG by Neurology, scheduled for sleep-deprived EEG. Has been following up with cardiology as well. -CT head negative for acute changes, no noted neuro deficits prior to intubation We have discotinued Levofloxacin today and broadened her ABx Coverage to vancomycin,imipenam and acyclovir for possible/Meningitis/encephalitis coverage. Plan for L.P Plan is to get MRI brain without contrast once stable Repeat C.T Head without contrast done today has not shown any intrcranial pathology. 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 -avoid nephrotoxins, renally dose meds -hold pregabalin, duloxetine while on sedation -has Stanford catheter in place; assess daily for removal, continue to monitor Is & Os -renal function improving, continue to monitor -hold diuresis Status: Acute (5) Dehydration: -with noted diarrhea, now resolved -C.difficile negative, enteric bacterial panel negative -off IVF hydration Status: Resolved (6) CVA (cerebral vascular accident): -known hx of CVA earlier this year (03/2020) with noted multiple areas of infarct on MRI -has been on AC with Eliquis and following up with neurology Status: Chronic Qualifiers: CVA mechanism: unspecified Qualified Code(s): I63.9 - Cerebral infarction, unspecified Additional A&P Information -COVID-19 negative per PCR -Chronic diastolic CHF; Echo (03/2020): EF=45-50%, G1DD, mild global hypokinesis, trace MR, trace AR, trace TR, trace MO. -I.V 40 MG Lasix today -oxygen dependent COPD, 2 L baseline requirement qhs -Chronic pancreatitis; on pancreatic enzymes -Chronic pain; on opiates; cautious use; follows up with pain management -Chronic smoker, 1 PPD -hx of hyperlipidemia -Hypothyroidism; on levothyroxine -hx of CAD s/p stenting -NPO -GI ppx with PPI -DVT ppx not needed as on Eliquis -Dispo: lives alone and due to ongoing episodes of syncope, may not be safe to return home on her own. Seems open to SNF placement but has done well with therapy and HH recommended. -Code status: FULL code -continue ICU care Attestations Medical Necessity Statement*: Patient needs to be in hospital for the management of Ac Encephalopathy. Coding Level of Care Code Acute Design Engineer for Brandie Blank Diagnoses Acute respiratory failure J96.01; J96.02 Respiratory failure complication: hypoxia and hypercapnia Tachycardia R00.0 Encephalopathy G93.40 Acute kidney injury N17.9 Dehydration E86.0 CVA (cerebral vascular accident) I63.9 CVA mechanism: unspecified
--- NOTE | 2020-07-26 10:48 | PC.NURSE ---
Primaxin administered one hour late. Waited until pt finisehed with head CT before starting.
[2020-07-26] MEDS: dextrose 5% 1,000 ML 125 ML IV ×2 (13:22→20:53)
[2020-07-26 13:38] LABS: ABG PCO2 44.7 mmHg (35-45); ABG PH Result 7.41 (7.35-7.45); Alveolar-Arterial Oxygen Gradi 1.7 mmHg (5-10); Arterial Blood Gas Hematocrit 32.9 % (37-47); Blood Gas Allen Test Pos; Blood Gas Operator Identificat BD; Blood Gas Sample Site Brachial, right; Blood Gas Sample Type Arterial; Carboxyhemoglobin 1.1 %THgb (0.4-20.1); HCO3 ABG 28.1 mmol/L (22-26); HGB O2 Sat 94.2 % (95-100); Ionized Calcium Level - ABG 1.2 mmol/L (1.1-1.4); Methemoglobin 0.5 % (0.4-1.5); Oxygen Device OXY MASK; Oxygen Saturation ABG 95.8; PO2 ABG 81.4 mmHg (80.0-100.0); Potassium Level - ABG 3.7 mmol/L (3.5-5.0); Total Hemoglobin 10.7 g/dL (12-16)
[2020-07-26] MEDS: vancomycin 1,000 MG in sodium chloride 0.9% 250 ML 250 MG IV (17:04)
--- NOTE | 2020-07-26 17:52 | PC.SLP ---
Pt responsiveness improving per report. Pt still not able to participate in eval, however, at this time. TRUCK STRIKER will attempt to assess the pt tomorrow.
[2020-07-26] MEDS: hyDRALAzine 20 mg/mL INJ 1 mL 5 MG IVP (18:12)
[2020-07-26] MEDS: acetaminophen 650 mg Supp PR (19:10)
--- NOTE | 2020-07-26 19:15 | PC.NURSE ---
Pt rolling all over bed in apparent discomfort. Stated back of head hurt. Administered Tylenol suppository per order. Night nurse notified and will continue to monitor.
[2020-07-26] MEDS: dexmedetomidine 400 MCG in sodium chloride 0.9% (100 ml) 100 ML IV (20:34)
[2020-07-26] MEDS: labetalol 300 MG in sodium chloride 0.9% 240 ML 30 MG IV (20:34)
[2020-07-26] MEDS: FUROsemide 10 mg/mL SDV 4mL 40 MG IVP (21:36)
[2020-07-27] VITALS (36 sets, daily range): BP systolic 87–175; BP diastolic 49–94; PULSE 56–86; RESP 12–29; TEMP 36.4–36.6; O2SAT 90–100
[2020-07-27] MEDS: morphine 4 mg/mL SDV 1 mL 2 MG IVP ×4 (00:43→21:53)
[2020-07-27] MEDS: LORazepam 2 mg/mL INJ 1 mL IVP ×2 (01:47→20:56)
[2020-07-27] MEDS: labetalol 300 MG in sodium chloride 0.9% 240 ML 30 MG IV (01:52)
[2020-07-27 04:16] LABS: Alanine Aminotransferase 8 U/L (0-33); Albumin Level 2.9 g/dL (3.5-5.2); Alkaline Phosphatase 67 IU/L (35-105); Anion Gap 7.1 (5-19); Aspartate Amino Transferase 14 U/L (0-32); Basophils % 0.5 %; Blood Urea Nitrogen 12 mg/dL (8-23); Calcium 8.6 mg/dL (8.5-10.5); Carbon Dioxide 32 mmol/L (22-29); Chloride 109 mmol/L (98-107); Eosinophils # 1.3 10^3/uL (0.0-0.8); Globulin 1.9 g/dL (1.3-4.6); Glomerular Filtration Rate 71.3 mL/min (90-130); Glucose 128 mg/dL (65-115); Hematocrit 33.3 % (37.0-47.0); Lymphocytes % 17.2 %; Magnesium 1.3 mg/dL (1.7-2.3); Mean Corpuscular Hemoglobin 28.3 pg (28.0-34.0); Mean Corpuscular Volume 94.3 fL (81-99); Mean Platelet Volume 12.9 fL (7.4-10.4); Monocytes # 0.4 10^3/uL (0.2-0.9); Monocytes % 6.1 %; Neutrophils # 3.02 10^3/uL (1.8-7.7); Nucleated Red Blood Cells % 0 %; Osmolality Calculated 301 mOsm/kg (285-295); Platelet Count 80 10^3/cmm (130-400); Potassium 3.1 mmol/L (3.5-5.1); Red Blood Count 3.53 10^6/uL (4.1-5.3); Red Cell Distribution Width 16.9 % (12.1-15.1); Sodium 145 mmol/L (136-145); Total Bilirubin 0.4 mg/dL (0.15-1.2); Total Protein 4.8 g/dL (6.6-8.7); White Blood Count 5.7 10^3/uL (4.0-10.0)
[2020-07-27] MEDS: dextrose 5% 1,000 ML 125 ML IV (04:52)
[2020-07-27] MEDS: acyclovir 500 MG in sodium chloride 0.9% (100 ml) 100 ML 110 MG IV ×3 (05:19→21:28)
[2020-07-27] MEDS: ipratropium-albuterol 3 mL Neb INHALATION ×2 (07:52→19:42)
--- NOTE | 2020-07-27 08:35 | PC.NURSE ---
Sherrell pt's daughter called for an update. Update given.
--- NOTE | 2020-07-27 09:21 | FL_ITS ---
WS: [id number] LUMBAR PUNCTURE CLINICAL INFORMATION: confusion COMPARISON: None. TECHNIQUE: Informed consent: The procedure and its potential risk and complications were discussed with the robbin ent. Verbal and written consent was obtained. Timeout: A timeout was performed to confirm correct patient, procedure, and site. Patient was prepped and draped in the usual sterile fashion. Lidocaine 1% was used for local anesthes ia. Utilizing fluoroscopic guidance, a 3.5 inch 22-gauge spinal needle was advanced into the subarach noid space at L4-5 via left oblique approach. Free flow of clear CSF was obtained. 10 cc of CSF was c ollected and sent the lab for further analysis. FLUOROSCOPIC TIME: 0.2 minutes. FL/FL guided lumbarpunc dx* [id number] IMPRESSION: Fluoroscopically guided lumbar puncture. No immediate complications
[2020-07-27] MEDS: dextrose 5%-sod chloride 0.45% 1,000 ML 75 ML IV (09:45)
[2020-07-27] MEDS: vancomycin 1,000 MG in sodium chloride 0.9% 250 ML 250 MG IV (09:49)
[2020-07-27] MEDS: pantoprazole 40 mg SDV IVP (09:56)
--- NOTE | 2020-07-27 10:15 | PC.SOCIAL ---
IMM Updated Page 2 of IMM updated with daughter Bozena by phone. Initialed, dated, and timed and placed back in chart. Copy provided to patient's bedside.
--- NOTE | 2020-07-27 11:00 | PC.NURSE ---
arash Seals's daughter called for an update on her mother. Spoke to her about her condition.
--- NOTE | 2020-07-27 12:12 | P.PN_ITS ---
Subjective Subjective: Interval history: Patient combativeness and confusion both has improved a significant bit.Has remained afebrile,vitals stable. good urine output.She is asking for food and wants to go home. Medications: Reviewed: Yes Medication Review Details: Active Medications Generic Name Dose Route Start Last Admin Trade Name Freq PRN Reason Stop Dose Admin Acetaminophen 650 mg 07/18/20 20:24 Tylenol PO Q6H PRN Mild/Mod Pain Or Temp >/= 101 Acetaminophen 650 mg 07/22/20 19:47 Tylenol [place] Q6H PRN fever Albuterol Sulfate 2 puff 07/18/20 20:24 07/21/20 15:27 Ventolin INHALATION 2 puff Q4H.RESPIRATORY P RN Administration SHORTNESS OF JULIANA TH Albuterol/Ipratrop ium 3 ml 07/22/20 01:09 07/23/20 05:09 Duoneb INHALATION 3 ml Q4H PRN Administration SHORTNESS OF JULIANA TH Lipase/Protease/Am ylase 1 each 07/19/20 09:00 07/23/20 07:50 Zenpep PO Not Given WM&BEDTIME ANDREW Apixaban 5 mg 07/19/20 09:00 07/22/20 10:53 Eliquis PO 5 mg BID ANDREW Administration Atorvastatin Calci um 40 mg 07/23/20 09:00 Lipitor OG-TUBE DAILY ANDREW Duloxetine HCl 30 mg 07/20/20 09:00 07/22/20 10:54 Cymbalta PO 30 mg DAILY ANDREW Administration Propofol 1,000 mg in 100 m ls @ 0 mls/hr 07/22/20 14:15 07/23/20 06:43 Diprivan IV 25 mcg/kg/min .Q0M ANDREW 11.4 mls/hr Administration Protocol Per Protocol Norepinephrine Bit artrate 4 mg 254 mls @ 0 mls/h r 07/22/20 15:15 07/23/20 05:36 / Dextrose IV 0 mcg/min .Q0M ANDREW 0 mls/hr Titration Protocol Per Protocol Sodium Chloride 500 mls @ 0 mls/h r 07/22/20 20:00 Sodium Chloride 0.9% IV .Q0M ANDREW As Directed Diltiazem HCl 125 mg/ Sodium 125 mls @ 0 mls/h r 07/23/20 03:00 07/23/20 04:08 Chloride IV 0 mg/hr .Q0M ANDREW 0 mls/hr Titration Protocol Per Protocol Levofloxacin/Dextr ose 750 mg in 150 mls @ 100 mls/hr 07/24/20 17:00 Levaquin-D5w IV Q48H [facility] Protocol Heparin Sodium/Sod ium Chloride 25,000 unit in 50 0 mls @ 0 mls/hr 07/23/20 04:15 Heparin Drip IV .Q0M ANDREW Protocol Per Protocol Magnesium Sulfate 4 gm in 100 mls @ 50 mls/hr 07/23/20 07:00 07/23/20 07:49 Magnesium Sulfat e Premix IV 07/23/20 08:59 50 mls/hr ONCE ONE Administration Isosorbide Mononit rate 30 mg 07/19/20 09:00 07/22/20 10:54 Imdur PO 30 mg DAILY [facility] Administration Levothyroxine Sodi um 150 mcg 07/23/20 09:00 Synthroid OG-TUBE DAILY [facility] Metoprolol Tartrat e 25 mg 07/23/20 09:00 Lopressor OG-TUBE BID [facility] Metoprolol Tartrat e 5 mg 07/23/20 03:46 07/23/20 04:03 Metoprolol Tartr ate IV 5 mg Q5MIN PRN Administration Heart rate > 150 Nitroglycerin 0.4 mg 07/18/20 20:24 Nitrostat SUBLINGUAL Q5M PRN CHEST PAIN Ondansetron HCl 4 mg 07/18/20 20:24 Zofran IVP Q6H PRN NAUSEA AND VOMITI NG Pantoprazole Sodiu m 40 mg 07/23/20 09:00 Protonix IVP DAILY [facility] Pregabalin 150 mg 07/20/20 09:00 07/22/20 19:32 Lyrica PO Not Given BID [facility] insect venom Allergy (Verified 06/22/20 13:00) PASS OUT nut - unspecified Allergy (Verified 07/18/20 14:59) ALGY-Anaphylaxis Penicillins Allergy (Verified 06/22/20 12:59) ALGY-Anaphylaxis Sulfa (Sulfonamide Antibiotics) Allergy (Verified 06/22/20 12:59) Unknown guacamole Allergy (Uncoded 07/18/20 14:59) ALGY-Anaphylaxis Vitals/I&O/Wt Last Vital Signs Temp 97.5 F L 07/27/20 08:00 Pulse 57 L 07/27/20 10:00 Resp 14 07/27/20 10:00 BP 104/56 07/27/20 10:00 Pulse Ox 96 07/27/20 10:00 07/26/20 07/27/20 07/27/20 22:59 06:59 14:59 Intake Total 1499.583 / 3105.592 1500.252 / 4605.844 1218.773 / 1218.773 Output Total 1999 1700 / 3700 Balance -500.417 / 1105.592 -199.748 / 511.083 4726.773 / 1218.773 Physical Exam Narrative: EXAM NARRATIVE: AO*2 HENMT: COMMON NORMALS: normocephalic, atraumatic, hearing grossly normal bilaterally and external ears normal HEAD & SCALP: normocephalic and atraumatic EXTERNAL EAR: Yes external ears normal Eye: COMMON NORMALS: no scleral icterus GENERAL EYE: appearance normal, both eyes and all related structures Chest: COMMONS NORMALS: normal inspection of the chest and normal palpation of entire chest wall CHEST: Yes Symmetrical chest wall rise Resp: COMMON NORMALS: normal respiratory effort, No retractions, No use of ac cessory muscles and clear to auscultation bilaterally EFFORT & INSPECTION: Yes symmetric chest movement AUSCULTATION: clear to auscultation bilaterally OTHER: B/L Coarse breath sounds with b/l basal crackles. Cardio: COMMON NORMALS: regular rate, regular rhythm, S1 normal heart sound present, S2 normal heart sound present, No gallops present (Cardio), No murmurs present (Cardio), No rub (Cardio) and Peripheral pulses 2+ throughout RATE: regular rate RHYTHM: regular rhythm HEART SOUNDS: S1 normal heart sound present and S2 normal heart sound present PERIPHERAL PULSES: Peripheral pulses 2+ throughout GI: COMMON NORMALS: Normal to inspection, nondistended, normoactive bowel sounds present, Soft to palpation, non-tender, No hepatosplenomegaly present and no masses AUSCULTATION: Yes normoactive bowel sounds PALPATION: Yes Soft to palpation and Yes No hepatosplenomegaly present RECTAL EXAM: deferred : COMMON NORMALS: Yes no CVA tenderness BLADDER/KIDNEY EXAM: Yes no CVA tenderness Back/Pelvis: COMMON NORMALS: no CVA tenderness Extremity: COMMON NORMALS: no clubbing, cyanosis or edema and no pedal edema Urinary Catheter Management^: Stanford: Cath Placed During This Visit: yes, but has since been removed by the nurse Reason for Continuing Indwelling Catheter: Accurate Measurement of Urinary Output in Critically Ill Patients Urinary Catheter Date of Insertion: 07/22/20 Urinary Catheter Time of Insertion: 02:00 Date Urinary Catheter Removed: 07/21/20 Time Urinary Catheter Discontinued: 18:30 Data : 07/27/20 03:25 07/27/20 03:25 A&P Assessment and plan (1) Encephalopathy: -Likely 2/2 to opoid abuse disorder -CT head negative for acute changes, no noted neuro deficits prior to intubation - Repeat C.T Head without contrast done today has not shown any intrcranial pathology. -S/P L.P today : CSF analysis has r/o bacterial meningitis. HSV PCR has been sent along with lymes, VDRL studies -We have discontinued Levofloxacin and broadened her ABx Coverage to vancomycin,imipenam and acyclovir coverage. - Plan is to get MRI brain without contrast once stable: -she appears to have an unsteady gait at baseline -from review of medical record has a somewhat complicated neurological history including prior PRES and CVA with some noted episodes of syncope, tremors. Ongoing w/u including EEG by Neurology, scheduled for sleep-deprived EEG. Has been following up with cardiology as well. 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 Currently saturating above 90 % on 4l Oxygen Via NC gradually moving towards baseline oxygen Status: Acute Qualifiers: Respiratory failure complication: hypoxia and hypercapnia Qualified Code(s): J96.01 - Acute respiratory failure with hypoxia; J96.02 - Acute respiratory failure with hypercapnia (5) Tachycardia: -During the admission had develop atrial flutter/atrial fibrillation -required cardizem drip, now weaned off -telemetry monitoring -daily ECG -noted thrombocytopenia, hold off on initiation of heparin drip. Was on AC with Eliquis due to hx of CVA -Echo (03/2020): EF=45-50%, G1DD, mild global hypokinesis, trace MR, trace AR, trace TR, trace FL Status: Acute (6) Dehydration: -with noted diarrhea, now resolved -C.difficile negative, enteric bacterial panel negative -off IVF hydration Status: Resolved (7) CVA (cerebral vascular accident): -known hx of CVA earlier this year (03/2020) with noted multiple areas of infarct on MRI -has been on AC with Eliquis and following up with neurology Status: Chronic Qualifiers: CVA mechanism: unspecified Qualified Code(s): I63.9 - Cerebral infarction, unspecified Additional A&P Information -COVID-19 negative per PCR -Chronic diastolic CHF; Echo (03/2020): EF=45-50%, G1DD, mild global hypokinesis, trace MR, trace AR, trace TR, trace FL. -I.V 40 MG Lasix today -oxygen dependent COPD, 2 L baseline requirement qhs -Chronic pancreatitis; on pancreatic enzymes -Chronic pain; on opiates; cautious use; follows up with pain management -Chronic smoker, 1 PPD -hx of hyperlipidemia -Hypothyroidism; on levothyroxine -hx of CAD s/p stenting -GI ppx with PPI -DVT ppx not needed as on Eliquis -Dispo: lives alone and due to ongoing episodes of syncope, may not be safe to return home on her own. Seems open to SNF placement but has done well with therapy and HH recommended. -Code status: FULL code -continue ICU care Attestations Medical Necessity Statement*: Patient needs to be in hospital for the manage ment of ac encephalopathy Coding Level of Care Code Acute Psychology Lecturer for [facility] Diagnoses Encephalopathy G93.40 Hypernatremia E87.0 Acute kidney injury N17.9 Acute respiratory failure J96.01; J96.02 Respiratory failure complication: hypoxia and hypercapnia Tachycardia R00.0 Dehydration E86.0 CVA (cerebral vascular accident) I63.9 CVA mechanism: unspecified
[2020-07-27 12:15] LABS: Glucose CSF 78 mg/dL (40-70); Total Protein CSF 38 mg/dL (15-45)
[2020-07-27 12:16] LABS: Appearance CSF CLEAR (CLEAR); CSF Mononuclear # 0.002 10^3/uL (50-90); Color CSF COLORLESS (COLORLESS); Mononuclear WBC CSF % 100 % (50-90); Polynuclear WBC CSF % 0 % (0-10); Red Blood Cell CSF 0 10^3/uL (0-0); White Blood Cell CSF 2 /uL (0-5)
[2020-07-27] MEDS: hyDRALAzine 20 mg/mL INJ 1 mL 5 MG IVP ×2 (14:15→20:56)
--- NOTE | 2020-07-27 15:35 | PC.NURSE ---
Pt's daughter Sherrell was called with an update on her mother's condition. Pt tolerated the lumbar puncture well.
[2020-07-27] MEDS: metoprolol tartrate 25 mg Tablet OG-TUBE (17:09)
[2020-07-27] MEDS: lipase-protease-amylase Capsule 1 EACH PO (17:10)
[2020-07-27] MEDS: oxyCODONE 5 mg IR Tab/Cap 20 MG PO (19:18)
--- NOTE | 2020-07-27 19:21 | PC.NURSE ---
Shift summary: Pt much more alert this evening than this morning. There is still some slight confusion noted at times. Particularly by her daughter, Bozena, who came at visiting hours today. Dr Delgado spoke with Bozena. Pt was on Labetalo gtt and Precedex gtt this am both are now off. IV fluids changed today. Pt had lumbar puncture done today, she tolerated it well. After Dr visited with daughter, pt started rolling around excessively in bed saying she felt restless. One time does of her home pain med ordered by Dr Delgado. All three lumens on central line flush and draw blood. Pt has had 550ml of dark yellow urine output. Report given to AMY Mcnair.
--- NOTE | 2020-07-27 21:45 | PC.NURSE ---
Pt continues to become increasingly agitated. Precedex drip restarted and titrated to max dose. Pt was given oxy IR at shift change. This was a one time dose of her home medication that she takes 4X per day usually. 2 mg ativan IVP was bonnie given for agitation. Pt BP was running high, so 5 mg hydralazine was given as well. Pt bed alarm has been set and pt has been continually redirected. She has been adjusted in bed (laying down and sitting up). Pt tv has been turned on and off. Pt continues to beg to be knocked out and yelling for help.
[2020-07-27] MEDS: dexmedetomidine 400 MCG in sodium chloride 0.9% (100 ml) 100 ML 9.8 MCG IV (23:39)
[2020-07-28] VITALS (27 sets, daily range): BP systolic 84–161; BP diastolic 39–109; PULSE 57–76; RESP 0–28; TEMP 36.6; O2SAT 93–100
[2020-07-28] MEDS: dextrose 5%-sod chloride 0.45% 1,000 ML 75 ML IV (01:31)
[2020-07-28] MEDS: vancomycin 1,000 MG in sodium chloride 0.9% 250 ML 250 MG IV (03:02)
[2020-07-28 05:05] LABS: Basophils % 0.4 %; Eosinophils # 1.1 10^3/uL (0.0-0.8); Eosinophils % 21.5 %; Hematocrit 31.9 % (37.0-47.0); Hemoglobin 9.7 g/dL (11.5-15.3); Lymphocytes # 1.1 10^3/uL (0.8-4.8); Lymphocytes % 22.1 %; Mean Corpuscular HGB Conc 30.4 g/dL (30.0-36.0); Mean Corpuscular Hemoglobin 28.7 pg (28.0-34.0); Mean Corpuscular Volume 94.4 fL (81-99); Mean Platelet Volume 13.6 fL (7.4-10.4); Monocytes # 0.3 10^3/uL (0.2-0.9); Monocytes % 6.7 %; Neutrophils # 2.51 10^3/uL (1.8-7.7); Neutrophils % 49.1 %; Nucleated Red Blood Cells % 0 %; Platelet Count 86 10^3/cmm (130-400); Red Blood Count 3.38 10^6/uL (4.1-5.3); Red Cell Distribution Width 16.7 % (12.1-15.1); White Blood Count 5.1 10^3/uL (4.0-10.0)
[2020-07-28] MEDS: acyclovir 500 MG in sodium chloride 0.9% (100 ml) 100 ML 110 MG IV (05:23)
[2020-07-28 05:44] LABS: Alanine Aminotransferase 8 U/L (0-33); Albumin Level 2.7 g/dL (3.5-5.2); Alkaline Phosphatase 64 IU/L (35-105); Anion Gap 11.2 (5-19); Aspartate Amino Transferase 13 U/L (0-32); Blood Urea Nitrogen 9 mg/dL (8-23); Calcium 8.1 mg/dL (8.5-10.5); Carbon Dioxide 27 mmol/L (22-29); Chloride 110 mmol/L (98-107); Globulin 1.8 g/dL (1.3-4.6); Glomerular Filtration Rate 83.2 mL/min (90-130); Glucose 114 mg/dL (65-115); Magnesium 1.2 mg/dL (1.7-2.3); Osmolality Calculated 300 mOsm/kg (285-295); Potassium 3.2 mmol/L (3.5-5.1); Sodium 145 mmol/L (136-145); Total Bilirubin 0.3 mg/dL (0.15-1.2); Total Protein 4.5 g/dL (6.6-8.7)
[2020-07-28] MEDS: morphine 4 mg/mL SDV 1 mL 2 MG IVP (06:11)
--- NOTE | 2020-07-28 09:25 | PC.NURSE ---
Pt's daughter, Sherrell called for an update on her mother. Update given.
[2020-07-28] MEDS: pantoprazole 40 mg SDV IVP (09:51)
[2020-07-28] MEDS: pregabalin 150 mg Capsule PO ×2 (09:56→17:41)
[2020-07-28] MEDS: isosorbide mononitrate ER 30 mg Tablet PO (09:57)
[2020-07-28] MEDS: methadone 10 mg Tablet 30 MG PO (09:57)
[2020-07-28] MEDS: cloNIDine 0.1 mg Tablet PO (09:57)
[2020-07-28] MEDS: levothyroxine 150 mcg Tablet OG-TUBE (09:57)
[2020-07-28] MEDS: atorvastatin 40 mg Tablet OG-TUBE (09:57)
[2020-07-28] MEDS: metoprolol tartrate 25 mg Tablet OG-TUBE ×2 (09:57→17:41)
[2020-07-28] MEDS: lipase-protease-amylase Capsule 1 EACH PO ×3 (09:57→17:41)
[2020-07-28] MEDS: duloxetine 30 mg Capsule PO (09:57)
[2020-07-28] MEDS: ondansetron 2 mg/ML SDV 2 mL 4 MG IVP (12:40)
--- NOTE | 2020-07-28 13:23 | P.PN_ITS ---
Subjective Subjective: Interval history: Patient is less combative today, though still asking for pain medications.We have started her back on all her home medications. Medications: Reviewed: Yes Medication Review Details: Active Medications Generic Name Dose Route Start Last Admin Trade Name Freq PRN Reason Stop Dose Admin Acetaminophen 650 mg 07/18/20 20:24 Tylenol PO Q6H PRN Mild/Mod Pain Or Temp >/= 101 Acetaminophen 650 mg 07/22/20 19:47 Tylenol [place] Q6H PRN fever Albuterol Sulfate 2 puff 07/18/20 20:24 07/21/20 15:27 Ventolin INHALATION 2 puff Q4H.RESPIRATORY P RN Administration SHORTNESS OF JULIANA TH Albuterol/Ipratrop ium 3 ml 07/22/20 01:09 07/23/20 05:09 Duoneb INHALATION 3 ml Q4H PRN Administration SHORTNESS OF JULIANA TH Lipase/Protease/Am ylase 1 each 07/19/20 09:00 07/23/20 07:50 Zenpep PO Not Given WM&BEDTIME ANDREW Apixaban 5 mg 07/19/20 09:00 07/22/20 10:53 Eliquis PO 5 mg BID ANDREW Administration Atorvastatin Calci um 40 mg 07/23/20 09:00 Lipitor OG-TUBE DAILY ANDREW Duloxetine HCl 30 mg 07/20/20 09:00 07/22/20 10:54 Cymbalta PO 30 mg DAILY ANDREW Administration Propofol 1,000 mg in 100 m ls @ 0 mls/hr 07/22/20 14:15 07/23/20 06:43 Diprivan IV 25 mcg/kg/min .Q0M ANDREW 11.4 mls/hr Administration Protocol Per Protocol Norepinephrine Bit artrate 4 mg 254 mls @ 0 mls/h r 07/22/20 15:15 07/23/20 05:36 / Dextrose IV 0 mcg/min .Q0M ANDREW 0 mls/hr Titration Protocol Per Protocol Sodium Chloride 500 mls @ 0 mls/h r 07/22/20 20:00 Sodium Chloride 0.9% IV .Q0M ANDREW As Directed Diltiazem HCl 125 mg/ Sodium 125 mls @ 0 mls/h r 07/23/20 03:00 07/23/20 04:08 Chloride IV 0 mg/hr .Q0M ANDREW 0 mls/hr Titration Protocol Per Protocol Levofloxacin/Dextr ose 750 mg in 150 mls @ 100 mls/hr 07/24/20 17:00 Levaquin-D5w IV Q48H [facility] Protocol Heparin Sodium/Sod ium Chloride 25,000 unit in 50 0 mls @ 0 mls/hr 07/23/20 04:15 Heparin Drip IV .Q0M [facility] Protocol Per Protocol Magnesium Sulfate 4 gm in 100 mls @ 50 mls/hr 07/23/20 07:00 07/23/20 07:49 Magnesium Sulfat e Premix IV 07/23/20 08:59 50 mls/hr ONCE ONE Administration Isosorbide Mononit rate 30 mg 07/19/20 09:00 07/22/20 10:54 Imdur PO 30 mg DAILY [facility] Administration Levothyroxine Sodi um 150 mcg 07/23/20 09:00 Synthroid OG-TUBE DAILY [facility] Metoprolol Tartrat e 25 mg 07/23/20 09:00 Lopressor OG-TUBE BID [facility] Metoprolol Tartrat e 5 mg 07/23/20 03:46 07/23/20 04:03 Metoprolol Tartr ate IV 5 mg Q5MIN PRN Administration Heart rate > 150 Nitroglycerin 0.4 mg 07/18/20 20:24 Nitrostat SUBLINGUAL Q5M PRN CHEST PAIN Ondansetron HCl 4 mg 07/18/20 20:24 Zofran IVP Q6H PRN NAUSEA AND VOMITI NG Pantoprazole Sodiu m 40 mg 07/23/20 09:00 Protonix IVP DAILY [facility] Pregabalin 150 mg 07/20/20 09:00 07/22/20 19:32 Lyrica PO Not Given BID [facility] insect venom Allergy (Verified 06/22/20 13:00) PASS OUT nut - unspecified Allergy (Verified 07/18/20 14:59) ALGY-Anaphylaxis Penicillins Allergy (Verified 06/22/20 12:59) ALGY-Anaphylaxis Sulfa (Sulfonamide Antibiotics) Allergy (Verified 06/22/20 12:59) Unknown guacamole Allergy (Uncoded 07/18/20 14:59) ALGY-Anaphylaxis Vitals/I&O/Wt Last Vital Signs Temp 98 F 07/27/20 18:00 Pulse 66 07/28/20 08:26 Resp 16 07/28/20 08:26 BP 161/109 07/28/20 09:57 Pulse Ox 94 07/28/20 08:26 07/27/20 07/28/20 07/28/20 22:59 06:59 14:59 Intake Total 416.892 / 7639.262 4301.22 / 3235.885 100 / 100 Output Total 550 / 550 500 / 1050 Balance -133.108 / 7085.058 0469.22 / 2185.885 100 / 100 Physical Exam Narrative: EXAM NARRATIVE: AO*2 HENMT: COMMON NORMALS: normocephalic, atraumatic, hearing grossly normal bilaterally and external ears normal HEAD & SCALP: normocephalic and atraumatic EXTERNAL EAR: Yes external ears normal Eye: COMMON NORMALS: no scleral icterus GENERAL EYE: appearance normal, both eyes and all related structures Chest: COMMONS NORMALS: normal inspection of the chest and normal palpation of entire chest wall CHEST: Yes Symmetrical chest wall rise Resp: COMMON NORMALS: normal respiratory effort, No retractions, No use of accessory muscles and clear to auscultation bilaterally EFFORT & INSPECTION: Yes symmetric chest movement AUSCULTATION: clear to auscultation bilaterally OTHER: B/L Coarse breath sounds with b/l basal crackles. Cardio: COMMON NORMALS: regular rate, regular rhythm, S1 normal heart sound present, S2 normal heart sound present, No gallops present (Cardio), No murmurs present (Cardio), No rub (Cardio) and Peripheral pulses 2+ throughout RATE: regular rate RHYTHM: regular rhythm HEART SOUNDS: S1 normal heart sound present and S2 normal heart sound present PERIPHERAL PULSES: Peripheral pulses 2+ throughout GI: COMMON NORMALS: Normal to inspection, nondistended, normoactive bowel sounds present, Soft to palpation, non-tender, No hepatosplenomegaly present and no masses AUSCULTATION: Yes normoactive bowel sounds PALPATION: Yes Soft to palpation and Yes No hepatosplenomegaly present RECTAL EXAM: deferred : COMMON NORMALS: Yes no CVA tenderness BLADDER/KIDNEY EXAM: Yes no CVA tenderness Back/Pelvis: COMMON NORMALS: no CVA tenderness Extremity: COMMON NORMALS: no clubbing, cyanosis or edema and no pedal edema Urinary Catheter Management^: Stanford: Cath Placed During This Visit: yes, but has since been removed by the nurse Reason for Continuing Indwelling Catheter: Accurate Measurement of Urinary Output in Critically Ill Patients Urinary Catheter Date of Insertion: 07/22/20 Urinary Catheter Time of Insertion: 02:00 Date Urinary Catheter Removed: 07/21/20 Time Urinary Catheter Discontinued: 18:30 Data : 07/28/20 04:12 07/28/20 04:12 Micro: Microbiology 07/27/20 10:58 Gram Stain - Final Cerebrospinal Fluid CSF Culture - Preliminary A&P Assessment and plan (1) Encephalopathy: -Likely 2/2 to opoid abuse disorder -CT head negative for acute changes, no noted neuro deficits prior to intubation - Repeat C.T Head without contrast done today has not shown any intrcranial pathology. -S/P L.P today : CSF analysis has r/o bacterial meningitis. HSV PCR has been sent along with lymes, VDRL studies -Vancomycin and acyclovir was discontinued on 07/28, as suspicion for encephalitis and meningitis is low currently on imipenam only. -Levofloxacin was discontinued earlier. - Plan is to get MRI brain without contrast once stable: -she appears to have an unsteady gait at baseline -from review of medical record has a somewhat complicated neurological history including prior PRES and CVA with some noted episodes of syncope, tremors. Ongoing w/u including EEG by Neurology, scheduled for sleep-deprived EEG. Has been following up with cardiology as well. -Psych consult done. 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 Currently saturating above 90 % on 4l Oxygen Via NC gradually moving towards baseline oxygen Status: Acute Qualifiers: Respiratory failure complication: hypoxia and hypercapnia Qualified Code(s): J96.01 - Acute respiratory failure with hypoxia; J96.02 - Acute respiratory failure with hypercapnia (5) Tachycardia: -During the admission had develop atrial flutter/atrial fibrillation -required cardizem drip, now weaned off -telemetry monitoring -daily ECG -noted thrombocytopenia, hold off on initiation of heparin drip. Was on AC with Eliquis due to hx of CVA -Echo (03/2020): EF=45-50%, G1DD, mild global hypokinesis, trace MR, trace AR, trace TR, trace [place] Status: Acute (6) Dehydration: -with noted diarrhea, now resolved -C.difficile negative, enteric bacterial panel negative -off IVF hydration Status: Resolved (7) CVA (cerebral vascular accident): -known hx of CVA earlier this year (03/2020) with noted multiple areas of infarct on MRI -has been on AC with Eliquis and following up with neurology Status: Chronic Qualifiers: CVA mechanism: unspecified Qualified Code(s): I63.9 - Cerebral infarction, unspecified Additional A&P Information -COVID-19 negative per PCR -Chronic diastolic CHF; Echo (03/2020): EF=45-50%, G1DD, mild global hypokinesis, trace MR, trace AR, trace TR, trace WA. -I.V 40 MG Lasix today -oxygen dependent COPD, 2 L baseline requirement qhs -Chronic pancreatitis; on pancreatic enzymes -Chronic pain; on opiates; cautious use; follows up with pain management -Chronic smoker, 1 PPD -hx of hyperlipidemia -Hypothyroidism; on levothyroxine -hx of CAD s/p stenting -GI ppx with PPI -DVT ppx not needed as on Eliquis -Dispo: lives alone and due to ongoing episodes of syncope, may not be safe to return home on her own. Seems open to SNF placement but has done well with therapy and HH recommended. -Code status: FULL code -continue ICU care Attestations Medical Necessity Statement*: Patient needs to be in hospital for the Ac encephalopathy likely 2/2 opoid use disorder. Coding Level of Care Code Acute Carpet Renovator for g Fwd Diagnoses Encephalopathy G93.40 Hypernatremia E87.0 Acute kidney injury N17.9 Acute respiratory failure J96.01; J96.02 Respiratory failure complication: hypoxia and hypercapnia Tachycardia R00.0 Dehydration E86.0 CVA (cerebral vascular accident) I63.9 CVA mechanism: unspecified
[2020-07-28] MEDS: acetaminophen 325 mg Tablet 650 MG PO ×2 (16:30→21:11)
[2020-07-28 22:10] LABS: Vancomycin Trough 15.8 ug/mL (10-15)
[2020-07-29] VITALS (22 sets, daily range): BP systolic 81–141; BP diastolic 40–79; PULSE 56–75; RESP 5–20; TEMP 36.6–37.1; O2SAT 91–100
[2020-07-29] MEDS: cloNIDine 0.1 mg Tablet PO ×2 (01:12→08:27)
--- NOTE | 2020-07-29 05:31 | PC.NURSE ---
At the start of shift, pt was responding and answering questions. She had delayed responses and sometimes had to have nurse repeat the question or instructions. As the night progressed, pt became less responsive. About midnight, pt stopped following commands (such as roll this way , turn your head , and raise your arm up ). Pt was still answering questions and responding (delayed). At 0515, nurse was changing central line dressing, and pt could not follow commands, answer questions, or speak. Pt would groan or grunt, but she would not shake her head yes or no, she would not tell nurse her name, and she was too weak to hold herself in a position once nurse moved her. At this time, the nurse noticed what appeared to be periorbital edema. Nurse will pass along information at shift change. Three of pt's daughters called throughout the shift for updates. All were given the same information. Family was very adamant that pt was not to be placed in a psych unit or facility.
[2020-07-29] MEDS: pantoprazole 40 mg SDV IVP (08:27)
[2020-07-29] MEDS: metoprolol tartrate 25 mg Tablet OG-TUBE ×2 (08:27→18:35)
[2020-07-29] MEDS: lipase-protease-amylase Capsule 1 EACH PO ×3 (08:28→20:39)
[2020-07-29] MEDS: isosorbide mononitrate ER 30 mg Tablet PO (08:28)
[2020-07-29] MEDS: apixaban 5 mg Tablet PO ×2 (08:28→18:35)
[2020-07-29] MEDS: levothyroxine 150 mcg Tablet OG-TUBE (08:28)
[2020-07-29] MEDS: atorvastatin 40 mg Tablet OG-TUBE (08:28)
--- NOTE | 2020-07-29 10:18 | PC.CHAP ---
Pastoral Care Encounter/Spiritual Assessment Type of Contact [] Declined dog obedience instructor visit [] Patient/Family/Request visit [] Outpatient visit [] Follow-up visit [] Physician referral [] Code/Alert [] Routine visit [X] Staff referral [] Actively dying [X] Patient sleeping [] Family support [] [] Out of room [] Palliative care [] [] Receiving care in room [] Pre-surgical visit [] Trauma [] Long length of stay [] ICU visit [] Other: Relational/Emotional Strength [] Patient feels connected with others/family/visitors/staff [] Distress [] Loneliness/isolation [] Abandonment Spirituality of Patient [] Person of Jaky [] Attends Lutheran of their Jaky [] Believes in Prayer [] Reads Bible or Buddhism materials [] There are Spiritual issues to be addressed [employer] Manufacturing Supervisor Interventions [] Prayer [] Active listening [] Non-anxious presence [] Spiritual/emotional support [] Crisis/trauma care [] Spiritual counseling [] Bereavement support [] Provided bereavement packet [] Provided Bible/devotional materials [] Provided toy/stuffed animal, coloring book to patient or family member [] Provided Communion [] Anointing/[place] [] Salvation [] Completed spiritual assessment [] Other: Impact on Illness or Injury [] Angry [] Fearful [] Anxious [] Often cries [] Exhaustion [] Unable to work [] Unable to attend restorationist [] Unable to walk/stand [] Unable to read [] Unable to drive [] Unable to eat/drink [] Unable to sleep [] Unable to be with family [] Patient intubated [] Other: Summary Time spent with patient
--- NOTE | 2020-07-29 10:45 | PC.SOCIAL ---
IMM Updated Updated pt on Pg 2 IMM. No questions voiced. Provided pt a copy. Signed, dated, & timed copy in chart.
--- NOTE | 2020-07-29 11:37 | P.PN_ITS ---
Subjective Subjective: Interval history: Mentation is improving.She can hold conversation, though still not to her baseline as per the family. Vitals :Stable Labs :Pending Medications: Reviewed: Yes Medication Review Details: Active Medications Generic Name Dose Route Start Last Admin Trade Name Freq PRN Reason Stop Dose Admin Acetaminophen 650 mg 07/18/20 20:24 Tylenol PO Q6H PRN Mild/Mod Pain Or Temp >/= 101 Acetaminophen 650 mg 07/22/20 19:47 Tylenol MN Q6H PRN fever Albuterol Sulfate 2 puff 07/18/20 20:24 07/21/20 15:27 Ventolin INHALATION 2 puff Q4H.RESPIRATORY P RN Administration SHORTNESS OF JULIANA TH Albuterol/Ipratrop ium 3 ml 07/22/20 01:09 07/23/20 05:09 Duoneb INHALATION 3 ml Q4H PRN Administration SHORTNESS OF JULIANA TH Lipase/Protease/Am ylase 1 each 07/19/20 09:00 07/23/20 07:50 Zenpep PO Not Given WM&BEDTIME ANDREW Apixaban 5 mg 07/19/20 09:00 07/22/20 10:53 Eliquis PO 5 mg BID ANDREW Administration Atorvastatin Calci um 40 mg 07/23/20 09:00 Lipitor OG-TUBE DAILY ANDREW Duloxetine HCl 30 mg 07/20/20 09:00 07/22/20 10:54 Cymbalta PO 30 mg DAILY ANDREW Administration Propofol 1,000 mg in 100 m ls @ 0 mls/hr 07/22/20 14:15 07/23/20 06:43 Diprivan IV 25 mcg/kg/min .Q0M ANDREW 11.4 mls/hr Administration Protocol Per Protocol Norepinephrine Bit artrate 4 mg 254 mls @ 0 mls/h r 07/22/20 15:15 07/23/20 05:36 / Dextrose IV 0 mcg/min .Q0M ANDREW 0 mls/hr Titration Protocol Per Protocol Sodium Chloride 500 mls @ 0 mls/h r 07/22/20 20:00 Sodium Chloride 0.9% IV .Q0M ANDREW As Directed Diltiazem HCl 125 mg/ Sodium 125 mls @ 0 mls/h r 07/23/20 03:00 07/23/20 04:08 Chloride IV 0 mg/hr .Q0M ANDREW 0 mls/hr Titration Protocol Per Protocol Levofloxacin/Dextr ose 750 mg in 150 mls @ 100 mls/hr 07/24/20 17:00 Levaquin-D5w IV Q48H [facility] Protocol Heparin Sodium/Sod ium Chloride 25,000 unit in 50 0 mls @ 0 mls/hr 07/23/20 04:15 Heparin Drip IV .Q0M ANDREW Protocol Per Protocol Magnesium Sulfate 4 gm in 100 mls @ 50 mls/hr 07/23/20 07:00 07/23/20 07:49 Magnesium Sulfat e Premix IV 07/23/20 08:59 50 mls/hr ONCE ONE Administration Isosorbide Mononit rate 30 mg 07/19/20 09:00 07/22/20 10:54 Imdur PO 30 mg DAILY [facility] Administration Levothyroxine Sodi um 150 mcg 07/23/20 09:00 Synthroid OG-TUBE DAILY [facility] Metoprolol Tartrat e 25 mg 07/23/20 09:00 Lopressor OG-TUBE BID [facility] Metoprolol Tartrat e 5 mg 07/23/20 03:46 07/23/20 04:03 Metoprolol Tartr ate IV 5 mg Q5MIN PRN Administration Heart rate > 150 Nitroglycerin 0.4 mg 07/18/20 20:24 Nitrostat SUBLINGUAL Q5M PRN CHEST PAIN Ondansetron HCl 4 mg 07/18/20 20:24 Zofran IVP Q6H PRN NAUSEA AND VOMITI NG Pantoprazole Sodiu m 40 mg 07/23/20 09:00 Protonix IVP DAILY [facility] Pregabalin 150 mg 07/20/20 09:00 07/22/20 19:32 Lyrica PO Not Given BID [facility] insect venom Allergy (Verified 06/22/20 13:00) PASS OUT nut - unspecified Allergy (Verified 07/18/20 14:59) ALGY-Anaphylaxis Penicillins Allergy (Verified 06/22/20 12:59) ALGY-Anaphylaxis Sulfa (Sulfonamide Antibiotics) Allergy (Verified 06/22/20 12:59) Unknown guacamole Allergy (Uncoded 07/18/20 14:59) ALGY-Anaphylaxis Vitals/I&O/Wt Last Vital Signs Temp 98.8 F 07/29/20 10:00 Pulse 61 07/29/20 10:00 Resp 17 07/29/20 10:00 BP 104/55 07/29/20 10:00 Pulse Ox 91 07/29/20 10:00 07/28/20 07/29/20 07/29/20 22:59 06:59 14:59 Intake Total 150 / 1664.480 500 / 2164.480 125 / 125 Output Total 300 / 750 Balance 150 / 1214.480 200 / 1414.480 125 / 125 Physical Exam Narrative: EXAM NARRATIVE: AO*2 HENMT: COMMON NORMALS: normocephalic, atraumatic and external ears normal HEAD & SCALP: normocephalic and atraumatic EXTERNAL EAR: Yes external ears normal Resp: COMMON NORMALS: normal respiratory effort and clear to auscultation bilaterally EFFORT & INSPECTION: Yes symmetric chest movement AUSCULTATION: clear to auscultation bilaterally OTHER: B/L Coarse breath so unds with b/l basal crackles. Cardio: COMMON NORMALS: regular rate, regular rhythm, S1 normal heart sound present, S2 normal heart sound present, No gallops present (Cardio), No murmurs present (Cardio), No rub (Cardio) and Peripheral pulses 2+ throughout RATE: regular rate RHYTHM: regular rhythm HEART SOUNDS: S1 normal heart sound present and S2 normal heart sound present PERIPHERAL PULSES: Peripheral pulses 2+ throughout GI: COMMON NORMALS: Normal to inspection, nondistended, normoactive bowel sounds present, Soft to palpation, non-tender, No hepatosplenomegaly present and no masses AUSCULTATION: Yes normoactive bowel sounds PALPATION: Yes Soft to palpation and Yes No hepatosplenomegaly present RECTAL EXAM: deferred Extremity: COMMON NORMALS: no clubbing, cyanosis or edema and no pedal edema Urinary Catheter Management^: Stanford: Cath Placed During This Visit: yes, but has since been removed by the nurse Reason for Continuing Indwelling Catheter: Accurate Measurement of Urinary Output in Critically Ill Patients Urinary Catheter Date of Insertion: 07/22/20 Urinary Catheter Time of Insertion: 02:00 Date Urinary Catheter Removed: 07/21/20 Time Urinary Catheter Discontinued: 18:30 Data : 07/28/20 04:12 07/28/20 04:12 Micro: Microbiology 07/27/20 10:58 Gram Stain - Final Cerebrospinal Fluid CSF Culture - Preliminary A&P Assessment and plan (1) Encephalopathy: -Likely 2/2 to opoid abuse disorder -CT head negative for acute changes, no noted neuro deficits prior to intubation - Repeat C.T Head without contrast done today has not shown any intrcranial pathology. -S/P L.P today : CSF analysis has r/o bacterial meningitis. HSV PCR has been sent along with lymes, VDRL studies -Vancomycin and acyclovir was discontinued on 07/28, as suspicion for encephalitis and meningitis is low currently on imipenam only. -Levofloxacin was discontinued earlier. - Plan is to get MRI brain without contrast once stable: -she appears to have an unsteady gait at baseline -from review of medical record has a somewhat complicated neurological history including prior PRES and CVA with some noted episodes of syncope, tremors. Ongoing w/u including EEG by Neurology, scheduled for sleep-deprived EEG. Has been following up with cardiology as well. -Psych consult done. 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 Currently saturating above 90 % on 4l Oxygen Via NC gradually moving towards baseline oxygen Status: Acute Qualifiers: Respiratory failure complication: hypoxia and hypercapnia Qualified Code(s): J96.01 - Acute respiratory failure with hypoxia; J96.02 - Acute respiratory failure with hypercapnia (5) Tachycardia: -During the admission had develop atrial flutter/atrial fibrillation -required cardizem drip, now weaned off -telemetry monitoring -daily ECG -noted thrombocytopenia, hold off on initiation of heparin drip. Was on AC with Eliquis due to hx of CVA -Echo (03/2020): EF=45-50%, G1DD, mild global hypokinesis, trace MR, trace AR, trace TR, trace MN Status: Acute (6) Dehydration: -with noted diarrhea, now resolved -C.difficile negative, enteric bacterial panel negative -off IVF hydration Status: Resolved (7) CVA (cerebral vascular accident): -known hx of CVA earlier this year (03/2020) with noted multiple areas of infarct on MRI -has been on AC with Eliquis and following up with neurology Status: Chronic Qualifiers: CVA mechanism: unspecified Qualified Code(s): I63.9 - Cerebral infarction, unspecified Additional A&P Information -COVID-19 negative per PCR -Chronic diastolic CHF; Echo (03/2020): EF=45-50%, G1DD, mild global hypokinesis, trace MR, trace AR, trace TR, trace MN. -Has received lasix -oxygen dependent COPD, 2 L baseline requirement qhs -Chronic pancreatitis; on pancreatic enzymes -Chronic pain; on opiates; cautious use; follows up with pain management -Chronic smoker, 1 PPD -hx of hyperlipidemia -Hypothyroidism; on levothyroxine -hx of CAD s/p stenting -GI ppx with PPI -DVT ppx not needed as on Eliquis -Dispo: lives alone and due to ongoing episodes of syncope, may not be safe to return home on her own. Seems open to SNF placement but has done well with therapy and HH recommended. -Code status: FULL code -continue ICU care Attestations Medical Necessity Statement*: Patient needs to be in hospital for the Ac encephalopathy likely 2/2 opoid use disorder. Coding Level of Care Code Acute Assistant Loan [employer]or for [facility]hay Diagnoses Encephalopathy G93.40 Hypernatremia E87.0 Acute kidney injury N17.9 Acute respiratory failure J96.01; J96.02 Respiratory failure complication: hypoxia and hypercapnia Tachycardia R00.0 Dehydration E86.0 CVA (cerebral vascular accident) I63.9 CVA mechanism: unspecified
--- NOTE | 2020-07-29 13:59 | P.CONIM_ITS ---
Providers/Reason for Consult Consulting Physican/Specialty*: Alphonse Álvarez M.D.. Psychiatry. Reason for Consult*: Altered mental status. Attending Physician: Michael Delgado MD Primary Care Provider: Vivien Butler-Corrie Psych Consult HPI History of Present Illness Li Power is a 70 year old female who presented to the emergency department with the following report: Chief complaint: General Medical Stated complaint: syncope, LIM, diarrhea Time Seen by Provider: 07/18/20 14:46 History of Present Illness: HPI narrative: 70-year-old female who presents to the emergency room with complaints of diarrhea and cough for the last 4 days. She also had a lot of myalgias. She has a history of COPD she has not recently been on any oral antibiotics. She has taken some [id number] antidiarrheals with mild relief. No known Covid exposures that she is aware of. Onset (ago): day(s) (4) Relieving factors: none Exacerbating factors: none Associated symptoms: Reports cough and short of breath; Deny chest pain, confusion, diaphoresis, decreased appetite, dyspnea, fevers/ chills, headache(s), malaise, nausea, rash, palpitations, seizures, syncope, vomiting or weakness Treatments prior to arrival: none She was admitted to [facility] for definitive treatment of those issues. Several days later she decompensated and was transferred to the ICU for management of airway and evaluation for circumstances of for decompensation. She was intubated and then ultimately extubated and a psychiatric consult was initiated. She presents today fairly lethargic but certainly not in the condition that was reported in the consult. She is able to answer questions with reasonable c larity. She endorses that she does not know how she got here but spent most of the time talking about trying to figure out how to do some different things on her property. She continued to be focused about burning trash on the property and that someone had advised her to use bleach to rinse the burn materials off and went into detail about having that bleach pour for a time period of 4 hours. Otherwise she denies any significant history of mental health or addiction services. She reports that she never had sustained mental health or addiction treatment. She reports that she does have family but that she does not have a significant other at this point reporting that she was for a long period of time but that her has been for almost 19 years. She reports that she lives alone and that has never been a problem. She reports that she does have children and grandchildren. She denies any history of major trauma. Psychiatric history: As above. Substance abuse history: She denies any significant or contributory issues. Family history: She would not really follow this area questioning. Development history: She denies any issues with her or delivery, reports that she learn to walk and talk and met her developmental milestones on time. She denies needing any special education services. Psychosocial history: She reports that she had about 4 siblings and she was in the middle. She denies any significant issues in her childhood. She endorses being heterosexual and being one time. She has been . She endorses have multiple children and grandchildren. She's never been in the . Reports that she did go to [employer] but her lack of portability and ability to get around as Are those efforts. She currently lives in a house alone. Legal history: She denied any significant legal peril. Medical history: Please see primary care note. Meds Current Medications: Current Medications Generic Name Dose Route Start Last Admin Trade Name Freq PRN Reason Stop Dose Admin Acetaminophen 650 mg 07/18/20 20:24 07/28/20 21:11 Acetaminophen 32 5 Mg Tablet PO 650 mg Q6H PRN Administration Mild/Mod Pain Or Temp >/= 101 Acetaminophen 650 mg 07/22/20 19:47 07/26/20 19:10 Acetaminophen 65 0 Mg Supp MA 650 mg Q6H PRN Administration fever Albuterol Sulfate 2 puff 07/18/20 20:24 07/21/20 15:27 Ventolin INHALATION 2 puff Q4H.RESPIRATORY P RN Administration SHORTNESS OF JULIANA TH Albuterol/Ipratrop ium 3 ml 07/22/20 01:09 07/27/20 19:42 Duoneb INHALATION 3 ml Q4H PRN Administration SHORTNESS OF JULIANA TH Lipase/Protease/Am ylase 1 each 07/19/20 09:00 07/29/20 12:43 Zenpep PO Not Given WM&BEDTIME ANDREW Apixaban 5 mg 07/29/20 08:00 07/29/20 08:36 Apixaban 5 Mg Ta blet PO Not Given BID ANDREW Atorvastatin Calci um 40 mg 07/23/20 09:00 07/29/20 08:28 Lipitor OG-TUBE 40 mg DAILY ANDREW Administration Clonidine HCl 0.1 mg 07/28/20 09:00 07/29/20 08:27 Clonidine 0.1 Mg Tablet PO 0.1 mg Q8H ANDREW Administration Duloxetine HCl 30 mg 07/20/20 09:00 07/29/20 08:36 Duloxetine 30 Mg Capsule PO Not Given DAILY ANDREW Heparin Sodium (Be ef Lung) 5,000 unit 07/23/20 09:00 07/26/20 21:36 Heparin 5,000 Un it/Ml Inj 1 Ml SUBCUT Not Given Q12H ANDREW Hydralazine HCl 5 mg 07/24/20 15:39 07/27/20 20:56 Hydralazine 20 M g/Ml Inj 1 Ml IVP 5 mg Q6H PRN Administration HYPERTENSION Norepinephrine Bit artrate 4 mg 254 mls @ 0 mls/h r 07/22/20 15:15 07/25/20 19:00 / Dextrose IV Infused .Q0M ANDREW Titration Protocol Per Protocol Diltiazem HCl 125 mg/ Sodium 125 mls @ 0 mls/h r 07/23/20 03:00 07/25/20 19:00 Chloride IV Infused .Q0M ANDREW Titration Protocol Per Protocol Imipenem/Cilastati n Sodium 500 100 mls @ 200 mls /hr 07/27/20 14:30 07/29/20 08:26 mg/ Sodium Chlor jennifer IV 200 mls/hr Q6H ANDREW Administration Protocol Isosorbide Mononit rate 30 mg 07/19/20 09:00 07/29/20 08:28 Imdur PO 30 mg DAILY ANDREW Administration Levothyroxine Sodi um 150 mcg 07/23/20 09:00 07/29/20 08:28 Synthroid OG-TUBE 150 mcg DAILY ANDREW Administration Lorazepam 2 mg 07/25/20 15:13 07/27/20 20:56 Lorazepam 2 Mg/M l Inj 1 Ml IVP 2 mg Q4H PRN Administration ANXIETY Metoprolol Tartrat e 25 mg 07/23/20 09:00 07/29/20 08:27 Lopressor OG-TUBE 25 mg BID ANDREW Administration Metoprolol Tartrat e 5 mg 07/23/20 03:46 07/24/20 17:50 Metoprolol Tartr ate IV 5 mg Q5MIN PRN Administration Heart rate > 150 Morphine Sulfate 2 mg 07/27/20 00:31 07/28/20 06:11 Morphine 4 Mg/Ml Sdv 1 Ml IVP 2 mg Q6H PRN Administration SEVERE PAIN Ondansetron HCl 4 mg 07/18/20 20:24 07/28/20 12:40 Zofran IVP 4 mg Q6H PRN Administration NAUSEA AND VOMITI NG Pantoprazole Sodiu m 40 mg 07/23/20 09:00 07/29/20 08:27 Protonix IVP 40 mg DAILY ANDREW Administration Pregabalin 150 mg 07/20/20 09:00 07/29/20 08:35 Pregabalin 150 M g Capsule PO Not Given BID ANDREW PFSH NPU PFSH: Medical History (Updated 07/31/20 @ 12:32 by Norris Álvarez MD) Abnormal findings on esophagogastroduodenoscopy (EGD) Gastritis/GERD 2018 Arthralgia of cervical spine Back Pain Cervical disc disorder with myelopathy, mid-cervical region, unspecified level Cervical spondylosis without myelopathy Chronic pancreatitis COPD (chronic obstructive pulmonary disease) -oxygen dependent, 2 L at baseline Discitis Encounter for long-term opiate analgesic use Heart failure with preserved ejection fraction Left bundle branch block Lumbar postlaminectomy syndrome Myocardial infarct PRES (posterior reversible encephalopathy syndrome) -on 02/2018 Renal cyst Smoker Thrombocytopenia Thought to be drug-induced has follow-up with Dr. 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 No abnormal movements except for psychomotor retardation. Mostly cooperative with exam in no acute distress. Speech was decreased rate and volume with significant pauses for responses and significantly reduced speed of delivery of information. Mood described as fine affect subdued. Thought process linear and mostly organized. Thought content: Patient denied suicidal or homicidal ideation, no delusions reported noted, she denied any auditory or visual hallucinations. Attention and concentration were limited, and memory was mostly reliable but none were formally tested. She is alert and oriented times person and place. Insight and judgment are limited, and pulse control appears fair. Vitals/I&O/Wt Last Vital Signs Temp 98.8 F 07/29/20 10:00 Pulse 61 07/29/20 12:00 Resp 20 H 07/29/20 12:00 BP 91/50 07/29/20 12:00 Pulse Ox 96 07/29/20 12:00 07/28/20 07/29/20 07/29/20 22:59 06:59 14:59 Intake Total 150 / 1664.480 500 / 2164.480 125 / 125 Output Total 300 / 750 Balance 150 / 1214.480 200 / 1414.480 125 / 125 Physical Exam Urinary Catheter Management^: Stanford: Cath Placed During This Visit: yes, but has since been removed by the nurse Reason for Continuing Indwelling Catheter: Accurate Measurement of Urinary Output in Critically Ill Patients Urinary Catheter Date of Insertion: 07/22/20 Urinary Catheter Time of Insertion: 02:00 Date Urinary Catheter Removed: 07/21/20 Time Urinary Catheter Discontinued: 18:30 Data NPU Micro: Micro: Microbiology 07/27/20 10:58 Gram Stain - Final Cerebrospinal Flu id CSF Culture - Prel iminary Microbiology 07/27/20 10:58 Cerebrospinal Fluid Gram Stain - Final 07/27/20 10:58 Cerebrospinal Fluid CSF Culture - Preliminary A&P Assessment and plan (1) Dehydration: Status: Resolved (2) Encephalopathy: Status: Acute (3) Smoker: Status: Chronic (4) Altered mental status: Status: Acute Additional A&P Information This is a 70-year-old white female with recent history of presenting with altered mental status who apparently has had significant improvement in her clarity since initial hospitalization. 1. Continue current medication. 2. Patient appears to be increasing in her ability to communicate compared to what was described in the consult. Whatever underlying condition has led to the altered mental status with monitor for continued improvement to baseline. Benefit from some understanding of what baseline looks like to get a sense of when she is fully or mostly recovered. 3. Continue to monitor for improvement. Attestations NPU Medical Necessity Statement*: N/A. Please see primary team for definitive information on medical necessity. We'll follow and make recommendations as indicated. Coding Level of Care Code Acute Iron Bender for g Fwd Diagnoses Dehydration E86.0 Encephalopathy G93.40 Smoker F17.200 Altered mental status R41.82
[2020-07-30] VITALS (29 sets, daily range): BP systolic 127–157; BP diastolic 57–95; PULSE 63–78; RESP 11–25; TEMP 36.6–37; O2SAT 93–100
[2020-07-30] MEDS: acetaminophen 325 mg Tablet 650 MG PO (04:05)
[2020-07-30] MEDS: cloNIDine 0.1 mg Tablet PO ×2 (08:05→17:10)
[2020-07-30] MEDS: lipase-protease-amylase Capsule 1 EACH PO ×4 (08:06→22:30)
[2020-07-30] MEDS: apixaban 5 mg Tablet PO ×2 (09:56→17:10)
[2020-07-30] MEDS: atorvastatin 40 mg Tablet OG-TUBE (09:56)
[2020-07-30] MEDS: duloxetine 30 mg Capsule PO (09:57)
[2020-07-30] MEDS: metoprolol tartrate 25 mg Tablet OG-TUBE ×2 (09:57→17:11)
[2020-07-30] MEDS: levothyroxine 150 mcg Tablet OG-TUBE (09:57)
[2020-07-30] MEDS: pantoprazole 40 mg SDV IVP (09:57)
[2020-07-30] MEDS: isosorbide mononitrate ER 30 mg Tablet PO (09:57)
[2020-07-30] MEDS: pregabalin 150 mg Capsule PO ×2 (09:58→17:11)
--- NOTE | 2020-07-30 11:12 | PM.PN ---
Subjective Subjective: Interval history: Ms. vu is alert oriented x3. She has participated in physical therapy, vitals are stable. Has expressed her desire to go home. Good urine output; Medications: Reviewed: Yes Medication Review Details: Active Medications Generic Name Dose Route Start Last Admin Trade Name Freq PRN Reason Stop Dose Admin Acetaminophen 650 mg 07/18/20 20:24 Tylenol PO Q6H PRN Mild/Mod Pain Or Temp >/= 101 Acetaminophen 650 mg 07/22/20 19:47 Tylenol [place] Q6H PRN fever Albuterol Sulfate 2 puff 07/18/20 20:24 07/21/20 15:27 Ventolin INHALATION 2 puff Q4H.RESPIRATORY P RN Administration SHORTNESS OF JULIANA TH Albuterol/Ipratrop ium 3 ml 07/22/20 01:09 07/23/20 05:09 Duoneb INHALATION 3 ml Q4H PRN Administration SHORTNESS OF JULIANA TH Lipase/Protease/Am ylase 1 each 07/19/20 09:00 07/23/20 07:50 Zenpep PO Not Given WM&BEDTIME ANDREW Apixaban 5 mg 07/19/20 09:00 07/22/20 10:53 Eliquis PO 5 mg BID ANDREW Administration Atorvastatin Calci um 40 mg 07/23/20 09:00 Lipitor OG-TUBE DAILY ANDREW Duloxetine HCl 30 mg 07/20/20 09:00 07/22/20 10:54 Cymbalta PO 30 mg DAILY ANDREW Administration Propofol 1,000 mg in 100 m ls @ 0 mls/hr 07/22/20 14:15 07/23/20 06:43 Diprivan IV 25 mcg/kg/min .Q0M ANDREW 11.4 mls/hr Administration Protocol Per Protocol Norepinephrine Bit artrate 4 mg 254 mls @ 0 mls/h r 07/22/20 15:15 07/23/20 05:36 / Dextrose IV 0 mcg/min .Q0M ANDREW 0 mls/hr Titration Protocol Per Protocol Sodium Chloride 500 mls @ 0 mls/h r 07/22/20 20:00 Sodium Chloride 0.9% IV .Q0M ANDREW As Directed Diltiazem HCl 125 mg/ Sodium 125 mls @ 0 mls/h r 07/23/20 03:00 07/23/20 04:08 Chloride IV 0 mg/hr .Q0M ANDREW 0 mls/hr Titration Protocol Per Protocol Levofloxacin/Dextr ose 750 mg in 150 mls @ 100 mls/hr 07/24/20 17:00 Levaquin-D5w IV Q48H [facility] Protocol Heparin Sodium/Sod ium Chloride 25,000 unit in 50 0 mls @ 0 mls/hr 07/23/20 04:15 Heparin Drip IV .Q0M ANDREW Protocol Per Protocol Magnesium Sulfate 4 gm in 100 mls @ 50 mls/hr 07/23/20 07:00 07/23/20 07:49 Magnesium Sulfat e Premix IV 07/23/20 08:59 50 mls/hr ONCE ONE Administration Isosorbide Mononit rate 30 mg 07/19/20 09:00 07/22/20 10:54 Imdur PO 30 mg DAILY [facility] Administration Levothyroxine Sodi um 150 mcg 07/23/20 09:00 Synthroid OG-TUBE DAILY [facility] Metoprolol Tartrat e 25 mg 07/23/20 09:00 Lopressor OG-TUBE BID [facility] Metoprolol Tartrat e 5 mg 07/23/20 03:46 07/23/20 04:03 Metoprolol Tartr ate IV 5 mg Q5MIN PRN Administration Heart rate > 150 Nitroglycerin 0.4 mg 07/18/20 20:24 Nitrostat SUBLINGUAL Q5M PRN CHEST PAIN Ondansetron HCl 4 mg 07/18/20 20:24 Zofran IVP Q6H PRN NAUSEA AND VOMITI NG Pantoprazole Sodiu m 40 mg 07/23/20 09:00 Protonix IVP DAILY [facility] Pregabalin 150 mg 07/20/20 09:00 07/22/20 19:32 Lyrica PO Not Given BID [facility] insect venom Allergy (Verified 06/22/20 13:00) PASS OUT nut - unspecified Allergy (Verified 07/18/20 14:59) ALGY-Anaphylaxis Penicillins Allergy (Verified 06/22/20 12:59) ALGY-Anaphylaxis Sulfa (Sulfonamide Antibiotics) Allergy (Verified 06/22/20 12:59) Unknown guacamole Allergy (Uncoded 07/18/20 14:59) ALGY-Anaphylaxis Vitals/I&O/Wt Last Vital Signs Temp 98.4 F 07/29/20 19:00 Pulse 71 07/30/20 10:00 Resp 24 H 07/30/20 10:00 BP 148/87 07/30/20 10:41 Pulse Ox 93 07/30/20 08:29 07/29/20 07/30/20 07/30/20 22:59 06:59 14:59 Intake Total 100 / 425 340 / 765 240 / 240 Output Total 675 / 675 550 / 1225 Balance -575 / -250 -210 / -460 240 / 240 Physical Exam Narrative: EXAM NARRATIVE: AO*2 Const: COMMON NORMALS: patient oriented x3 HENMT: COMMON NORMALS: normocephalic and atraumatic HEAD & SCALP: normocephalic and atraumatic Resp: COMMON NORMALS: clear to auscultation bilaterally AUSCULTATION: clear to auscultation bilaterally OTHER: B/L Coarse breath sounds with b/l basal crackles. Cardio: COMMON NORMALS: regular rate, regular rhythm, S1 normal heart sound present, S2 normal heart sound present, No gallops present (Cardio), No murmurs present (Cardio), No rub (Cardio) and Peripheral pulses 2+ throughout RATE: regular rate RHYTHM: regular rhythm HEART SOUNDS: S1 normal heart sound present and S2 normal heart sound present PERIPHERAL PULSES: Peripheral pulses 2+ throughout GI: COMMON NORMALS: Normal to inspection, nondistended, normoactive bowel sounds present, Soft to palpation, non-tender, No hepatosplenomegaly present and no masses AUSCULTATION: Yes normoactive bowel sounds PALPATION: Yes Soft to palpation and Yes No hepatosplenomegaly present RECTAL EXAM: deferred Extremity: COMMON NORMALS: no clubbing, cyanosis or edema and no pedal edema Neuro: COMMON NORMALS: patient oriented x3 Urinary Catheter Management^: Stanford: Cath Placed During This Visit: yes, but has since been removed by the nurse Reason for Continuing Indwelling Catheter: Accurate Measurement of Urinary Output in Critically Ill Patients Urinary Catheter Date of Insertion: 07/22/20 Urinary Catheter Time of Insertion: 02:00 Date Urinary Catheter Removed: 07/21/20 Time Urinary Catheter Discontinued: 18:30 Data : 07/28/20 04:12 07/28/20 04:12 Micro: Microbiology 07/27/20 10:58 Gram Stain - Final Cerebrospinal Fluid CSF Culture - Final A&P Assessment and plan (1) Encephalopathy: -Likely 2/2 to opoid abuse disorder -CT head negative for acute changes, no noted neuro deficits prior to intubation - Repeat C.T Head without contrast done on (07/26) has not shown any intrcranial pathology. -S/P L.P : CSF analysis has r/o bacterial meningitis. HSV PCR has been sent along with lymes, VDRL studies -Vancomycin and acyclovir was discontinued on 07/28, as suspicion for encephalitis and meningitis is low. Imipenam discontinued on 07/30. Levofloxacin was discontinued earlier. - MRI brain without contrast once stable: -she appears to have an unsteady gait at baseline -from review of medical record has a somewhat complicated neurological history including prior PRES and CVA with some noted episodes of syncope, tremors. Ongoing w/u including EEG by Neurology, scheduled for sleep-deprived EEG. Has been following up with cardiology as well. -Psych consult done. 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 Currently saturating above 90 % on 4l Oxygen Via NC gradually moving towards baseline oxygen Status: Acute Qualifiers: Respiratory failure complication: hypoxia and hypercapnia Qualified Code(s): J96.01 - Acute respiratory failure with hypoxia; J96.02 - Acute respiratory failure with hypercapnia (5) Tachycardia: -During the admission had develop atrial flutter/atrial fibrillation -required cardizem drip, now weaned off -telemetry monitoring -daily ECG -noted thrombocytopenia, hold off on initiation of heparin drip. Was on AC with Eliquis due to hx of CVA -Echo (03/2020): EF=45-50%, G1DD, mild global hypokinesis, trace MR, trace AR, trace TR, trace [place] Status: Acute (6) Dehydration: -with noted diarrhea, now resolved -C.difficile negative, enteric bacterial panel negative -off IVF hydration Status: Resolved (7) CVA (cerebral vascular accident): -known hx of CVA earlier this year (03/2020) with noted multiple areas of infarct on MRI -has been on AC with Eliquis and following up with neurology Status: Chronic Qualifiers: CVA mechanism: unspecified Qualified Code(s): I63.9 - Cerebral infarction, unspecified Additional A&P Information -COVID-19 negative per PCR -Chronic diastolic CHF; Echo (03/2020): EF=45-50%, G1DD, mild global hypokinesis, trace MR, trace AR, trace TR, trace [place]. -Has received lasix -oxygen dependent COPD, 2 L baseline requirement qhs -Chronic pancreatitis; on pancreatic enzymes -Chronic pain; on opiates; cautious use; follows up with pain management -Chronic smoker, 1 PPD -hx of hyperlipidemia -Hypothyroidism; on levothyroxine -hx of CAD s/p stenting -GI ppx with PPI -DVT ppx not needed as on Eliquis -Dispo: lives alone and due to ongoing episodes of syncope, may not be safe to return home on her own. Seems open to SNF placement but has done well with therapy and HH recommended. -Code status: FULL code Attestations Medical Necessity Statement*: Patient needs to be in hospital for the management Ac Encephalopathy likley 2/2 Opoid abuse disorder. 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
[2020-07-30 11:23] LABS: Glucose Point of Care 106 mg/dL (70-110)
--- NOTE | 2020-07-30 12:05 | PC.CHAP ---
Pastoral Care Encounter/Spiritual Assessment Type of Contact [] Declined health and safety manager visit [] Patient/Family/Request visit [] Outpatient visit [X] Follow-up visit [] Physician referral [] Code/Alert [X] Routine visit [] Staff referral [] Actively dying [] Patient sleeping [] Family support [] [] Out of room [] Palliative care [] [] Receiving care in room [] Pre-surgical visit [] Trauma [] Long length of stay [X] ICU visit [] Other: Relational/Emotional Strength [x] Patient feels connected with others/family/visitors/staff [] Distress [] Loneliness/isolation [] Abandonment Spirituality of Patient [] Person of Jaky [] Attends Yazidism of their Jaky [X] Believes in Prayer [] Reads Bible or Baptism materials [] There are Spiritual issues to be addressed Lot Attendant Interventions [X] Prayer [X] Active listening [] Non-anxious presence [] Spiritual/emotional support [] Crisis/trauma care [] Spiritual counseling [] Bereavement support [] Provided bereavement packet [] Provided Bible/devotional materials [] Provided toy/stuffed animal, coloring book to patient or family member [] Provided Communion [] Anointing/[place] [] Salvation [] Completed spiritual assessment [] Other: Impact on Illness or Injury [] Angry [] Fearful [] Anxious [] Often cries [] Exhaustion [] Unable to work [] Unable to attend catholic [] Unable to walk/stand [] Unable to read [] Unable to drive [] Unable to eat/drink [] Unable to sleep [] Unable to be with family [] Patient intubated [] Other: Summary: Pt frustrated that she cannot go home today, otherwise doing well. We visited briefly (she was eating) and joined in prayer for full recovery. Pt has support system at home in [place]. Time spent with patient: 10 mins
--- NOTE | 2020-07-30 15:23 | PC.NURSE ---
cvl dressing changed. attempted to find peripheral vein w/o success.
--- NOTE | 2020-07-30 15:24 | PC.NURSE ---
remains up in chair.
[2020-07-30 18:54] LABS: Glucose Point of Care 140 mg/dL (70-110)
[2020-07-31] VITALS (19 sets, daily range): BP systolic 105–167; BP diastolic 61–93; PULSE 61–87; RESP 14–25; TEMP 36.2–36.8; O2SAT 92–99
[2020-07-31] MEDS: lipase-protease-amylase Capsule 1 EACH PO ×3 (07:59→20:48)
[2020-07-31] MEDS: isosorbide mononitrate ER 30 mg Tablet PO (08:12)
[2020-07-31] MEDS: cloNIDine 0.1 mg Tablet PO ×2 (08:12→17:48)
[2020-07-31] MEDS: duloxetine 30 mg Capsule PO (08:12)
[2020-07-31] MEDS: atorvastatin 40 mg Tablet OG-TUBE (08:13)
[2020-07-31] MEDS: pregabalin 150 mg Capsule PO ×2 (08:13→17:47)
[2020-07-31] MEDS: levothyroxine 150 mcg Tablet OG-TUBE (08:13)
[2020-07-31] MEDS: metoprolol tartrate 25 mg Tablet OG-TUBE ×2 (08:14→17:47)
[2020-07-31] MEDS: apixaban 5 mg Tablet PO ×2 (08:14→17:47)
[2020-07-31] MEDS: pantoprazole 40 mg SDV IVP (08:15)
--- NOTE | 2020-07-31 08:35 | PC.NURSE ---
Report called to [facility] Report called to AMY Munoz on [facility]. all questions answered. Call to Bozena, patients daughter. no answer at this time. nurse left message that patient was being trsaferred to [facility] room 279-1. Call to AMY Oropeza in case management. patient requesting to talk to case management today.
--- NOTE | 2020-07-31 11:17 | PM.PN ---
Subjective Subjective: Interval history: is doing well.She was moved to med/surg floor today.She is pleasant today and hold good conversation.Wants to go home.Has been participating in PT. Vitals stable. Labs Reviewed. Medications: Reviewed: Yes Medication Review Details: Active Medications Generic Name Dose Route Start Last Admin Trade Name Freq PRN Reason Stop Dose Admin Acetaminophen 650 mg 07/18/20 20:24 Tylenol PO Q6H PRN Mild/Mod Pain Or Temp >/= 101 Acetaminophen 650 mg 07/22/20 19:47 Tylenol [place] Q6H PRN fever Albuterol Sulfate 2 puff 07/18/20 20:24 07/21/20 15:27 Ventolin INHALATION 2 puff Q4H.RESPIRATORY P RN Administration SHORTNESS OF JULIANA TH Albuterol/Ipratrop ium 3 ml 07/22/20 01:09 07/23/20 05:09 Duoneb INHALATION 3 ml Q4H PRN Administration SHORTNESS OF JULIANA TH Lipase/Protease/Am ylase 1 each 07/19/20 09:00 07/23/20 07:50 Zenpep PO Not Given WM&BEDTIME ANDREW Apixaban 5 mg 07/19/20 09:00 07/22/20 10:53 Eliquis PO 5 mg BID ANDREW Administration Atorvastatin Calci um 40 mg 07/23/20 09:00 Lipitor OG-TUBE DAILY ANDREW Duloxetine HCl 30 mg 07/20/20 09:00 07/22/20 10:54 Cymbalta PO 30 mg DAILY ANDREW Administration Propofol 1,000 mg in 100 m ls @ 0 mls/hr 07/22/20 14:15 07/23/20 06:43 Diprivan IV 25 mcg/kg/min .Q0M ANDREW 11.4 mls/hr Administration Protocol Per Protocol Norepinephrine Bit artrate 4 mg 254 mls @ 0 mls/h r 07/22/20 15:15 07/23/20 05:36 / Dextrose IV 0 mcg/min .Q0M ANDREW 0 mls/hr Titration Protocol Per Protocol Sodium Chloride 500 mls @ 0 mls/h r 07/22/20 20:00 Sodium Chloride 0.9% IV .Q0M ANDREW As Directed Diltiazem HCl 125 mg/ Sodium 125 mls @ 0 mls/h r 07/23/20 03:00 07/23/20 04:08 Chloride IV 0 mg/hr .Q0M ANDREW 0 mls/hr Titration Protocol Per Protocol Levofloxacin/Dextr ose 750 mg in 150 mls @ 100 mls/hr 07/24/20 17:00 Levaquin-D5w IV Q48H [facility] Protocol Heparin Sodium/Sod ium Chloride 25,000 unit in 50 0 mls @ 0 mls/hr 07/23/20 04:15 Heparin Drip IV .Q0M ANDREW Protocol Per Protocol Magnesium Sulfate 4 gm in 100 mls @ 50 mls/hr 07/23/20 07:00 07/23/20 07:49 Magnesium Sulfat e Premix IV 07/23/20 08:59 50 mls/hr ONCE ONE Administration Isosorbide Mononit rate 30 mg 07/19/20 09:00 07/22/20 10:54 Imdur PO 30 mg DAILY ANDREW Administration Levothyroxine Sodi um 150 mcg 07/23/20 09:00 Synthroid OG-TUBE DAILY [facility] Metoprolol Tartrat e 25 mg 07/23/20 09:00 Lopressor OG-TUBE BID ANDREW Metoprolol Tartrat e 5 mg 07/23/20 03:46 07/23/20 04:03 Metoprolol Tartr ate IV 5 mg Q5MIN PRN Administration Heart rate > 150 Nitroglycerin 0.4 mg 07/18/20 20:24 Nitrostat SUBLINGUAL Q5M PRN CHEST PAIN Ondansetron HCl 4 mg 07/18/20 20:24 Zofran IVP Q6H PRN NAUSEA AND VOMITI NG Pantoprazole Sodiu m 40 mg 07/23/20 09:00 Protonix IVP DAILY [facility] Pregabalin 150 mg 07/20/20 09:00 07/22/20 19:32 Lyrica PO Not Given BID [facility] insect venom Allergy (Verified 06/22/20 13:00) PASS OUT nut - unspecified Allergy (Verified 07/18/20 14:59) ALGY-Anaphylaxis Penicillins Allergy (Verified 06/22/20 12:59) ALGY-Anaphylaxis Sulfa (Sulfonamide Antibiotics) Allergy (Verified 06/22/20 12:59) Unknown guacamole Allergy (Uncoded 07/18/20 14:59) ALGY-Anaphylaxis Vitals/I&O/Wt Last Vital Signs Temp 97.6 F 07/31/20 10:00 Pulse 61 07/31/20 10:00 Resp 18 07/31/20 10:00 BP 161/73 07/31/20 10:00 Pulse Ox 99 07/31/20 10:00 07/30/20 07/31/20 07/31/20 22:59 06:59 14:59 Intake Total 240 / 720 250 / 250 Output Total 350 / 350 300 / 650 Balance -110 / 370 -300 / 70 250 / 250 Physical Exam Narrative: EXAM NARRATIVE: AO*2 Const: COMMON NORMALS: patient oriented x3 HENMT: COMMON NORMALS: normocephalic and atraumatic HEAD & SCALP: normocephalic and atraumatic Chest: CHEST: Yes Symmetrical chest wall rise Resp: COMMON NORMALS: normal respiratory effort, No retractions, No use of accessory muscles and clear to auscultation bilaterally EFFORT & INSPECTION: Yes symmetric chest movement AUSCULTATION: clear to auscultation bilaterally OTHER: B/L Coarse breath sounds with b/l basal crackles. Cardio: COMMON NORMALS: regular rate, regular rhythm, S1 normal heart sound present, S2 normal heart sound present, No gallops present (Cardio), No murmurs present (Cardio), No rub (Cardio) and Peripheral pulses 2+ throughout RATE: regular rate RHYTHM: regular rhythm HEART SOUNDS: S1 normal heart sound present and S2 normal heart sound present PERIPHERAL PULSES: Peripheral pulses 2+ throughout GI: COMMON NORMALS: Normal to inspection, nondistended, normoactive bowel sounds present, Soft to palpation, non-tender, No hepatosplenomegaly present and no masses AUSCULTATION: Yes normoactive bowel sounds PALPATION: Yes Soft to palpation and Yes No hepatosplenomegaly present RECTAL EXAM: deferred Extremity: COMMON NORMALS: no clubbing, cyanosis or edema and no pedal edema Neuro: COMMON NORMALS: patient oriented x3 Urinary Catheter Management^: Stanford: Cath Placed During This Visit: yes, but has since been removed by the nurse Reason for Continuing Indwelling Catheter: Accurate Measurement of Urinary Output in Critically Ill Patients Urinary Catheter Date of Insertion: 07/22/20 Urinary Catheter Time of Insertion: 02:00 Date Urinary Catheter Removed: 07/21/20 Time Urinary Catheter Discontinued: 18:30 Data : 07/28/20 04:12 07/28/20 04:12 Micro: Microbiology 07/27/20 10:58 Gram Stain - Final Cerebrospinal Fluid CSF Culture - Final A&P Assessment and plan (1) Encephalopathy: -Likely 2/2 to opoid abuse disorder -CT head negative for acute changes, no noted neuro deficits noted - Repeat C.T Head without contrast done on (07/26) has not shown any intrcranial pathology. -S/P L.P : CSF analysis has r/o bacterial meningitis. HSV PCR has been sent along with lymes, VDRL studies -Vancomycin and acyclovir was discontinued on 07/28, as suspicion for encephalitis and meningitis is low. Imipenam discontinued on 07/30. Levofloxacin was discontinued earlier. - MRI brain without contrast was not done as the patient has improved significantly and has returned to baseline.Will avoid MRI. -she appears to have an unsteady gait at baseline -from review of medical record has a somewhat complicated neurological history including prior PRES and CVA with some noted episodes of syncope, tremors. Ongoing w/u including EEG by Neurology, scheduled for sleep-deprived EEG. Has been following up with cardiology as well. -Psych consulted:Recommend to observe her for now. 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 Currently saturating above 90 % on 4l Oxygen Via NC gradually moving towards baseline oxygen Status: Acute Qualifiers: Respiratory failure complication: hypoxia and hypercapnia Qualified Code(s): J96.01 - Acute respiratory failure with hypoxia; J96.02 - Acute respiratory failure with hypercapnia (5) Tachycardia: -During the admission had develop atrial flutter/atrial fibrillation -required cardizem drip, now weaned off -telemetry monitoring -daily ECG -noted thrombocytopenia, hold off on initiation of heparin drip. Was on AC with Eliquis due to hx of CVA -Echo (03/2020): EF=45-50%, G1DD, mild global hypokinesis, trace MR, trace [place], trace TR, trace [place] Status: Acute (6) Dehydration: -with noted diarrhea, now resolved -C.difficile negative, enteric bacterial panel negative -off IVF hydration Status: Resolved (7) CVA (cerebral vascular accident): -known hx of CVA earlier this year (03/2020) with noted multiple areas of infarct on MRI -has been on AC with Eliquis and following up with neurology Status: Chronic Qualifiers: CVA mechanism: unspecified Qualified Code(s): I63.9 - Cerebral infarction, unspecified Additional A&P Information -COVID-19 negative per PCR -Chronic diastolic CHF; Echo (03/2020): EF=45-50%, G1DD, mild global hypokinesis, trace MR, trace AR, trace TR, trace [place]. -Has received lasix intermittently. Currently compensated -oxygen dependent COPD, 2 L baseline requirement qhs -Chronic pancreatitis; on pancreatic enzymes -Chronic pain; on opiates; cautious use; follows up with pain management -Chronic smoker, 1 PPD -hx of hyperlipidemia -Hypothyroidism; on levothyroxine -hx of CAD s/p stenting -GI ppx with PPI -DVT ppx not needed as on Eliquis -Dispo: lives alone and due to ongoing episodes of syncope, may not be safe to return home on her own. Seems open to SNF placement but has done well with therapy and HH recommended. -Code status: FULL code Attestations Medical Necessity Statement*: Patient needs to be in hospital for the management Ac Encephalopathy likley 2/2 Opoid abuse disorder. 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
--- NOTE | 2020-07-31 16:29 | PC.SOCIAL ---
IMM Update Pg. 2 of IMM updated. Initialed, dated, and timed, and placed in chart. Copy provided to patient.
[2020-08-01] VITALS (7 sets, daily range): BP systolic 120–174; BP diastolic 71–92; PULSE 69–93; RESP 18–19; TEMP 36.4–36.8; O2SAT 91–99
[2020-08-01 05:01] LABS: Basophils # 0.1 10^3/uL (0.0-0.1); Basophils % 1.3 %; Eosinophils # 0.6 10^3/uL (0.0-0.8); Eosinophils % 6.5 %; Hematocrit 38.9 % (37.0-47.0); Hemoglobin 11.4 g/dL (11.5-15.3); Lymphocytes # 2.4 10^3/uL (0.8-4.8); Lymphocytes % 25.4 %; Mean Corpuscular HGB Conc 29.3 g/dL (30.0-36.0); Mean Corpuscular Hemoglobin 28.6 pg (28.0-34.0); Mean Corpuscular Volume 97.7 fL (81-99); Monocytes # 0.7 10^3/uL (0.2-0.9); Monocytes % 7.3 %; Neutrophils # 5.67 10^3/uL (1.8-7.7); Neutrophils % 59.3 %; Nucleated Red Blood Cells % 0 %; Platelet Count 179 10^3/cmm (130-400); Red Blood Count 3.98 10^6/uL (4.1-5.3); Red Cell Distribution Width 16.8 % (12.1-15.1); White Blood Count 9.6 10^3/uL (4.0-10.0)
[2020-08-01 05:40] LABS: Alanine Aminotransferase 14 U/L (0-33); Albumin Level 3.7 g/dL (3.5-5.2); Alkaline Phosphatase 127 IU/L (35-105); Anion Gap 13.7 (5-19); Aspartate Amino Transferase 28 U/L (0-32); Blood Urea Nitrogen 14 mg/dL (8-23); Calcium 9.1 mg/dL (8.5-10.5); Carbon Dioxide 29 mmol/L (22-29); Chloride 106 mmol/L (98-107); Globulin 2.4 g/dL (1.3-4.6); Glomerular Filtration Rate 71.3 mL/min (90-130); Glucose 117 mg/dL (65-115); Osmolality Calculated 302 mOsm/kg (285-295); Potassium 3.7 mmol/L (3.5-5.1); Sodium 145 mmol/L (136-145); Total Bilirubin 0.4 mg/dL (0.15-1.2); Total Protein 6.1 g/dL (6.6-8.7)
[2020-08-01] MEDS: acetaminophen 325 mg Tablet 650 MG PO ×2 (07:52→15:33)
[2020-08-01] MEDS: ipratropium-albuterol 3 mL Neb INHALATION (08:09)
[2020-08-01] MEDS: pantoprazole 40 mg SDV IVP (09:17)
[2020-08-01] MEDS: atorvastatin 40 mg Tablet OG-TUBE (09:18)
[2020-08-01] MEDS: isosorbide mononitrate ER 30 mg Tablet PO (09:18)
[2020-08-01] MEDS: metoprolol tartrate 25 mg Tablet OG-TUBE (09:18)
[2020-08-01] MEDS: levothyroxine 150 mcg Tablet OG-TUBE (09:18)
[2020-08-01] MEDS: duloxetine 30 mg Capsule PO (09:18)
[2020-08-01] MEDS: apixaban 5 mg Tablet PO (09:18)
--- NOTE | 2020-08-01 12:59 | PM.DCS ---
Discharge Providers Date of Admission: 07/18/20 18:19 Date of Discharge: August 01, 2020 Attending Provider at Admission: Elissa Duenas MD Attending Provider at Discharge: Michael Delgado MD Primary Care Provider: Vivien Butler Diagnoses at Discharge Discharge Diagnosis (1) Encephalopathy: Permanent problem details: Resolved (2) Acute kidney injury: Permanent problem details: Resolved (3) Acute respiratory failure: Permanent problem details: Resolved Qualifiers: Respiratory failure complication: hypoxia and hypercapnia Qualified Code(s): J96.01 - Acute respiratory failure with hypoxia; J96.02 - Acute respiratory failure with hypercapnia (4) CVA (cerebral vascular accident): Permanent problem details: Multiple areas of infarct. Per MRI. 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 some cough with minimal expectoration,unsteady gait.She was admitted with CANDY on CKD , dehydration,encephalopathy,COVID rapid was negative as well PCR was negative later.Hospital course was complicated by worsening Ac Encephalopathy to the point that she had to be intubated and placed on mechanical ventilation on the night of intubation her ABG was suggestive of Ac on chronic hypercapenic hypoxic r.f. she was intubated and then moved to MICU for further management.She was continued to be managed for Ac encephalopathy most possible explanation at this point in time is possible opoid withdrawal syndrome as the patient has been taking opoids as outpatient for chronic pain syndrome.C.T head without contrast was done :which failed to show any acute intracranial pathology,MRI brain without contrast was attempted to further show some light in the understanding of encephalopathy but patient it could be done as the patient was extremely combative and agitated inspite of being on good sedation. Repeat C.T head without contrast was also negative for any acute intracranial pathology.L/P was done which ruled out any possible bacterial and in all likelihood viral meningitis,she was broadly covered with Abxs.Which was later discontinued.She was sucessfully extubated later and did well with regards to her respiratory status and at the time of discharge she was at her baseline oxygen requirement ( 2Ls via [place]).He encephaloathy which in all likelihood was due to opoid abuse disorder was completely resolved at the time of discharge.Psychiatry was consulted for any underlying undiagnosed psychiatric ailment,per pysch tested her for areas/4 pillars of capacity such that she could not be deemed unable to make informed consent. It would be appropriate for her to be discharged to her home per her request and desire.Given her living alone having an assessment of home health care and the availability of any assistance that evaluation would recommend for her would be appropriate. Family was updated about her health throughout the hospital stay and all of there concerns and queries were addressed. At the time of discharge she was at her baseline mentation.She was discharged in stable condition to home.She will continue to follow her PCP as well as her neurology as outpatient. Pertinent Imaging studies: CTA chest: No evidence for pulmonary embolus. Small focal ground-glass opacity in the medial right upper lobe could represent a focus of pneumonia. CT head wo con: chronic small vessel ischemic disease CV echo complete:Normal L.V Cavity. Midly decreased left ventricular systolic function. Left ventricular ejection fraction is estimated at 50%. No RWMA regional. Grade II diastolic dysfunction. Mild tricuspid valve regurgitation.PAP : 31 Cultures: Blood Cultures :No growth ,Sputum Culture: No Growth , Stool C.diff:Nega, Enteric pathogen PCR :Negative. No further million dollar work up was done as the patient had returned to her baseline and was deemed safe to be discharged to home. Physical Exam Const: COMMON NORMALS: patient oriented x3 HENMT: COMMON NORMALS: normocephalic and atraumatic HEAD & SCALP: normocephalic and atraumatic Resp: COMMON NORMALS: normal respiratory effort, No retractions, No use of accessory muscles and clear to auscultation bilaterally EFFORT & INSPECTION: Yes symmetric chest movement AUSCULTATION: clear to auscultation bilaterally Cardio: COMMON NORMALS: regular rate, regular rhythm, S1 normal heart sound present, S2 normal heart sound present, No gallops present (Cardio), No murmurs present (Cardio), No rub (Cardio) and Peripheral pulses 2+ throughout RATE: regular rate RHYTHM: regular rhythm HEART SOUNDS: S1 normal heart sound present and S2 normal heart sound present PERIPHERAL PULSES: Peripheral pulses 2+ throughout GI: COMMON NORMALS: Normal to inspection, nondistended, normoactive bowel sounds present, Soft to palpation, non-tender, No hepatosplenomegaly present and no masses AUSCULTATION: Yes normoactive bowel sounds PALPATION: Yes Soft to palpation and Yes No hepatosplenomegaly present RECTAL EXAM: deferred Extremity: COMMON NORMALS: no clubbing, cyanosis or edema and no pedal edema Neuro: COMMON NORMALS: patient oriented x3 Urinary Catheter Management^: Stanford: Cath Placed During This Visit: yes, but has since been removed by the nurse Reason for Continuing Indwelling Catheter: Accurate Measurement of Urinary Output in Critically Ill Patients Urinary Catheter Date of Insertion: 07/22/20 Urinary Catheter Time of Insertion: 02:00 Date Urinary Catheter Removed: 07/21/20 Time Urinary Catheter Discontinued: 18:30 Discharge Data Data Completed and Pending: Completed Studies During Hospitalization Category Date Time Status CT angio chest PE protcl [id number] Stat Cat Scan 07/22/20 15:[address] head wo con* 7 0450 Routine Cat Scan 07/26/20 06:[address] head wo con* 7 0450 Stat Cat Scan 07/23/20 04:10 Completed CXRP [XR chest 1V portable [id number]] S tat Exams 07/22/20 01:04 Completed Fluoro guided lum bar puncture [FL g uided lumbarpunc d x* Exams 07/27/20 09:21 Completed [id number]] Routine XR chest 1V uabree ble [id number] Routine Exams 07/23/20 06:00 Completed XR chest 1V aubree ble [id number] Routine Exams 07/24/20 06:00 Completed XR chest 1V aubree ble [id number] Stat Exams 07/18/20 17:50 Completed XR chest 1V aubree ble 56584 Stat Exams 07/22/20 14:15 Completed XR chest 1V aubree ble [id number] Stat Exams 07/22/20 16:01 Completed CV echo complete* [id number] Routine Ultrasound 07/23/20 04:02 Completed Pending at discharge Category Date Time Status ABG FULL [Arteria l Blood Gas Full] Stat Lab 07/22/20 01:00 Results Lymes Disease Ant ibodies CSF Routin e Lab 07/27/20 10:58 Received Oligoclonal Bands IGG, CSF Routine Lab 07/27/20 10:58 Received VDRL on CSF Routi ne Lab 07/27/20 10:58 Received Labs from last 24 hours 08/01/20 08/01/20 07/27/20 03:50 03:50 10:58 WBC 9.6 RBC 3.98 L Hgb 11.4 L Hct 38.9 MCV 97.7 MCH 28.6 MCHC 29.3 L RDW 16.8 H Plt Count 179 MPV 13.0 H Neut % (Auto) 59.3 Lymph % (Auto) 25.4 Steele % (Auto) 7.3 Eos % (Auto) 6.5 Baso % (Auto) 1.3 Neut # (Auto) 5.67 Lymph # (Auto) 2.4 Steele # (Auto) 0.7 Eos # (Auto) 0.6 Baso # (Auto) 0.1 Nucleated RBC % (a uto) 0 Nucleated RBCs # 0.0 Sodium 145 Potassium 3.7 Chloride 106 Carbon Dioxide 29 Anion Gap 13.7 BUN 14 Creatinine 0.8 GFR Calculation 71.3 L Glucose 117 H Calculated Osmolal ity 302 H Calcium 9.1 Total Bilirubin 0.4 AST 28 ALT 14 Alkaline Phosphata se 127 H Total Protein 6.1 L Albumin 3.7 Globulin 2.4 Misc Test Referenc e See comment Vitals: Last Vital Signs Temp 97.6 F 08/01/20 11:24 Pulse 69 08/01/20 11:24 Resp 19 H 08/01/20 11:24 BP 120/71 08/01/20 11:24 Pulse Ox 91 08/01/20 11:24 Discharge Plan Discharge Patient Disposition: Home Condition: Stable Prescriptions: New Pain Reliever (acetaminophen) 325 mg tablet 325 mg PO Q6H PRN (Reason: pain) Qty: 30 RF: 0 Continued atorvastatin 40 mg tablet 40 mg PO DAILY RF: 0 duloxetine [Cymbalta] 30 mg capsule,delayed release(DR/EC) 30 mg PO BID RF: 0 fluticasone propionate 50 mcg/actuation spray,suspension 1 spray INTRANASAL DAILY RF: 0 isosorbide mononitrate 30 mg tablet extended release 24 hr 30 mg PO DAILY RF: 0 pantoprazole 40 mg tablet,delayed release (DR/EC) 40 mg PO DAILY RF: 0 Symbicort 160-4.5 mcg/actuation HFA aerosol inhaler 2 puff INHALATION BID RF: 0 metoprolol succinate 25 mg tablet extended release 24 hr 25 mg PO DAILY RF: 0 Creon 36,000-114,000- 180,000 unit capsule,delayed release(DR/EC) 1 cap PO QID RF: 0 ergocalciferol (vitamin D2) 50 mcg (2,000 unit) capsule See Rx Instructions .ROUTE .COMPLEX RF: 0 pregabalin 150 mg capsule 150 mg PO TID 30 Days Qty: 90 RF: 1 levalbuterol HCl 1.25 mg/3 mL solution for nebulization 1.25 mg INHALATION DAILY RF: 0 Spiriva with HandiHaler 18 mcg Capsule, W/Inhalation Device 1 cap INHALATION DAILY RF: 0 Eliquis 5 mg Tablet 5 mg PO BID Qty: 60 RF: 0 furosemide [Lasix] 20 mg tablet 20 mg PO QAM Qty: 30 RF: 0 levothyroxine 150 mcg tablet 150 mcg PO DAILY RF: 0 nitroglycerin 0.4 mg Tablet, Sublingual 0.4 mg SUBLINGUAL Q5M PRN (Reason: chest pains) RF: 0 loratadine 10 mg Tablet 10 mg PO DAILY PRN (Reason: allergies) RF: 0 metoclopramide HCl 10 mg Tablet 10 mg PO Q6H PRN (Reason: unknown) RF: 0 Daliresp 500 mcg Tablet 500 mcg PO DAILY RF: 0 Held oxycodone 20 mg tablet 20 mg PO QID PRN (Reason: pain) 30 Days Qty: 120 RF: 0 Discharge Orders: Discharge Order (Routine); Ordered 08/01/20 Ordered By: Michael Delgado Referrals: [facility] ([facility]) [Outside] Anjana Stapleton MD [Physician] - 08/30/20 2:30 pm Vivien Butler FNP-C [Primary Care Provider] - 1 week (PLEASE CALL FOR APPOINTMENT ) Discharge Diet: Low Salt Discharge Activity: Resume usual activity Patient Instructions: Heart Failure (DC), Coronary Artery Disease (DC), How to Stop Smoking (DC), Pancreatitis (DC), Ischemic Stroke (GEN), Acute Delirium (DC) Discharge Attestations Time Spent in Discharge Care*: greater than 30 min Specific Discharge Activities: educating patient, educating and/or supporting family/caregiver, discussing with pcp/other providers, discussing with caseworker/social workers/dc planners, documenting/other paperwork and evaluating patient/reviewing data Time Spent in Smoking Cessation: more than 10 minutes Status at Discharge: Cognitive status at discharge: cognitively intact, Behavioral status at discharge: cooperative, Functional status at discharge: independent ambulation Overall status at discharge: patient is back to baseline Quality Metrics Clinical Quality Measures During this hospital stay, did patient experience: None Coding Level of Care Code Acute Service Station Console Operator for g Fwd Exam Detailed Diagnoses Encephalopathy G93.40 Acute kidney injury N17.9 Acute respiratory failure J96.01; J96.02 Respiratory failure complication: hypoxia and hypercapnia CVA (cerebral vascular accident) I63.9 CVA mechanism: unspecified
[2020-08-01] MEDS: lipase-protease-amylase Capsule 1 EACH PO (13:18)
--- NOTE | 2020-08-01 14:25 | P.PN_ITS ---
Subjective NPU Subjective: Interval history: Li presents today reporting that she is excited about being discharged. She was aware of her daughter's concerns about her being discharged and she was open to a conversation to ensure that she was in fact safe for discharge. She demonstrated clear improvements from her assessment days ago without difficulty in answering questions or pauses or confusions or need for questions to be restated or recalibrated for her to understand. She demonstrated a clear understanding of the physical ailments for which she is treated. She demonstrated a clear understanding of how the medications are in fact helpful and endorsed a desire to continue those medications so that she has the highest level of functioning possible. She understood treatment alternatives but denied any desire to do any interventions that were counter to the treatment team's recommendations. She was able to demonstrate an understanding of treatment options and alternatives. We discussed smoking, which she reports she has stopped but did express frustration at how much of a topic that has become because she has stopped. We discussed how it would be especially concerning given that she is on oxygen which she reports to be 2 L at home when sleeping. She discussed her daughter's concern for her use of pain medication and reports that she has never short with her p ills or asking for pills early or in need of additional treatment outside of those provided by her pain managers. She endorsed that her one daughter helps her with her pill cases every 3 weeks or so but was open to the idea of in-home services to assist to take some pressure off of her daughter. She denied any confusion, psychosis, obsessions or compulsions, current depression or anxiety that needed addressed. Mental Status Exam MSE Comments: This is a overweight elderly white female looking older than her stated age with appropriate dress, grooming and eye contact. No abnormal movements except for psychomotor retardation. Mostly cooperative with exam in no acute distress. Speech was decreased rate and volume without significant pauses for responses like previously. Mood described as pretty good, affect brighter. Thought process organized. Thought content: Patient denied suicidal or homicidal ideation, no delusions reported or noted, she denied any auditory or visual hallucinations. Attention and concentration were in tact, and memory was reliable but none were formally tested. She is alert and oriented x 3. Insight and judgment are good, and impulse control appears fair. Vitals/I&O/Wt Last Vital Signs Temp 97.6 F 08/01/20 11:24 Pulse 69 08/01/20 11:24 Resp 19 H 08/01/20 11:24 BP 120/71 08/01/20 11:24 Pulse Ox 91 08/01/20 11:24 07/31/20 08/01/20 08/01/20 22:59 06:59 14:59 Intake Total 120 / 120 Balance 120 / 120 Physical Exam Urinary Catheter Management^: Stanford: Cath Placed During This Visit: yes, but has since been removed by the nurse Reason for Continuing Indwelling Catheter: Accurate Measurement of Urinary Output in Critically Ill Patients Urinary Catheter Date of Insertion: 07/22/20 Urinary Catheter Time of Insertion: 02:00 Date Urinary Catheter Removed: 07/21/20 Time Urinary Catheter Discontinued: 18:30 Data NPU : 08/01/20 03:50 08/01/20 03:50 A&P Additional A&P Information (1) Dehydration: (2) Encephalopathy: (3) Smoker: (4) Altered mental status: Additional A&P Information This is a 70-year-old white female with recent history of presenting with altered mental status with significant improvement in her clarity since initial evaluation. 1. Continue current medication. 2. Patient continues to gain clarity day by day. It has been a few days since I last saw her and she clearly has her faculties back in place. We discussed the fact that her children had concerns and she demonstrated understanding of all their concerns, her physical conditions for which she is treated clear under standing for areas/4 pillars of capacity such that she could not be deemed unable to make informed consent. 3. It would be appropriate for her to be discharged to her home per her request and desire. Given her living alone having an assessment of home health care and the availability of any assistance that evaluation would recommend for her would be appropriate. 4. Please let me know if I can be of further assistance but I have no concerns at this time and there is no need for inpatient psychiatric care. Attestations NPU Medical Necessity Statement*: N/A. Please see primary care note for medical necessity. However no need for intensive/inpatient psychiatric services and no signs of credible lethality or inability to make independent informed consent. Coding Level of Care Code Acute Tactical Deception Plans Officer for Brandie Blank
--- NOTE | 2020-08-01 16:36 | PC.NURSE ---
Discharge education given. Paperwork signed. Central line removed without difficulty; dry gauze and Tegaderm in place at insertion site. All questions answered. VSS; no s/s distress. Pt denied any needs or concerns at time of discharge. Daughter forgot to bring pt's home oxygen tank, so pt's oxygen supplier ([facility]) was able to deliver a loaner oxygen tank for the ride home. Pt escorted by BEEF PLUCK TRIMMER via wheelchair to hospital entrance and assisted into private vehicle, where her daughter was waiting. All personal belongings sent with pt.
[2020-08-01 21:08] LABS: VDRL on CSF NON-REACTIVE
[2020-08-04 21:48] LABS: Lyme Disease AB (IGG),IBL NO BANDS DETECTED; Lyme Disease AB (IGM), IBL NO BANDS DETECTED
== END 2020-08-01 16:00 | disposition home or self-care (01) | DRG 682 ==
LOC: ER 15:23 → MEDSURG 18:41 → ICU 07-22 12:49 → MEDSURG 07-31 08:51
PROVIDERS: Family Medicine; Admitting Provider Family Medicine; Emergency Provider Family Medicine; PCP Nurse Practitioner Family; Visit Provider Internal Medicine
DX: N17.9 Acute kidney failure, unspecified (principal); G92 Toxic encephalopathy; J96.21 Acute and chronic respiratory failure with hypoxia; J96.22 Acute and chronic respiratory failure with hypercapnia; M50.020 Cervical disc disorder with myelopathy, mid-cervical region, unspecified level; K86.1 Other chronic pancreatitis; I13.0 Hypertensive heart and chronic kidney disease with heart failure and stage 1 through stage 4 chronic kidney disease, or unspecified chronic kidney disease; I50.32 Chronic diastolic (congestive) heart failure; E87.2 Acidosis; F11.23 Opioid dependence with withdrawal; E87.0 Hyperosmolality and hypernatremia; K21.9 Gastro-esophageal reflux disease without esophagitis; J44.9 Chronic obstructive pulmonary disease, unspecified; Z99.81 Dependence on supplemental oxygen; Z98.1 Arthrodesis status; I25.2 Old myocardial infarction; F17.210 Nicotine dependence, cigarettes, uncomplicated; D69.59 Other secondary thrombocytopenia; N18.2 Chronic kidney disease, stage 2 (mild); Z90.5 Acquired absence of kidney; E87.6 Hypokalemia; E86.0 Dehydration; T40.2X5A Adverse effect of other opioids, initial encounter; Z86.73 Personal history of transient ischemic attack (TIA), and cerebral infarction without residual deficits; G89.4 Chronic pain syndrome; R26.81 Unsteadiness on feet; I48.91 Unspecified atrial fibrillation; R55 Syncope and collapse; I25.10 Atherosclerotic heart disease of native coronary artery without angina pectoris; Z95.5 Presence of coronary angioplasty implant and graft; E03.9 Hypothyroidism, unspecified; E78.5 Hyperlipidemia, unspecified; G35 Multiple sclerosis; R83.9 Unspecified abnormal finding in cerebrospinal fluid
CPT/HCPCS: 12345; 31500; 36415; 36416; 36556; 36592; 36600; 51702; 51798; 62328; 70450; 71045; 71275; 80048; 80051; 80053; 80202; 81001; 82330; 82570; 82803; 82805; 82945; 82962; 83605; 83735; 83880; 83916; 84100; 84145; 84157; 84484; 84540; 85025; 85378; 85384; 85610; 85730; 86140; 86592; 86617; 86695; 86696; 87040; 87070; 87075; 87205; 87426; 87493; 87506; 87635; 87804; 89050; 92610; 93005; 93306; 94002; 94003; 94640; 94660; 94799; 96372; 96375; 97110; 97116; 97161; 97162; 97530; 99284; A4570; C1751; C9113; J0133; J0360; J0743; J1630; J1644; J1940; J1956; J2060; J2270; J2405; J2704; J3370; J3475; J3480; J3490; J3535; J7030; J7050; J7799; Q9967